=== PATIENT | male | born 1975 ===

== ENCOUNTER 2019-12-27 08:10 | Outpatient (REF) | payer OTHER, SELFPAY | END 2019-12-27 08:11 | disposition home or self-care (01) | LOC: HO.LAB 08:10 | PROVIDERS: Visit Provider Internal Medicine | DX: Z20.828 Contact with and (suspected) exposure to other viral communicable diseases (principal) | CPT/HCPCS: C9803; U0003 ==

== ENCOUNTER → 2020-01-16 09:18 | Outpatient (BNVA) | payer OTHER, SELFPAY | PROVIDERS: PCP Internal Medicine; Referring Provider Internal Medicine; Visit Provider Nurse Practitioner | DX: Z76.89 Persons encountering health services in other specified circumstances (principal) ==

== ENCOUNTER 2020-02-12 06:27 | Outpatient (REF) | payer OTHER, SELFPAY | END 2020-02-12 06:28 | disposition home or self-care (01) | LOC: HO.LAB 06:27 | PROVIDERS: PCP Internal Medicine; Visit Provider Internal Medicine | DX: Z20.828 Contact with and (suspected) exposure to other viral communicable diseases (principal) | CPT/HCPCS: 36415; C9803; U0003 ==

== ENCOUNTER 2020-02-25 15:01 | Outpatient (REF) | payer OTHER, SELFPAY | END 2020-02-25 15:02 | disposition home or self-care (01) | LOC: HO.LAB 15:01 | PROVIDERS: PCP Internal Medicine; Visit Provider Internal Medicine | DX: Z20.822 Contact with and (suspected) exposure to COVID-19 (principal) | CPT/HCPCS: 36415; C9803; U0003 ==

== ENCOUNTER 2020-03-12 17:00 | Outpatient (REF) | payer OTHER, SELFPAY | END 2020-03-12 17:01 | disposition home or self-care (01) | LOC: HO.LAB 17:00 | PROVIDERS: Visit Provider Internal Medicine | DX: Z20.822 Contact with and (suspected) exposure to COVID-19 (principal) | CPT/HCPCS: 36415; C9803; U0003; U0005 ==

== ENCOUNTER 2020-03-19 09:35 | Outpatient (REF) | payer OTHER, SELFPAY ==
[2020-03-19 10:48] LABS: Glucose Urine UA NEG (NEG); Leukocyte Esterase Urine NEG (NEG); Nitrite Urine NEG (NEG); Urine Blood NEG (NEG); Urine Ketones NEG (NEG); Urine Protein NEG (NEG-TRACE)
[2020-03-19 10:58] LABS: Appearance Urine HAZY; Color Urine YELLOW
== END 2020-03-19 09:36 | disposition home or self-care (01) ==
LOC: HO.LAB 09:35
PROVIDERS: Visit Provider Internal Medicine
DX: R30.0 Dysuria (principal)
CPT/HCPCS: 81003; 87086

== ENCOUNTER 2020-04-10 09:42 | Outpatient (REF) | payer OTHER, SELFPAY | END 2020-04-10 09:43 | disposition home or self-care (01) | LOC: HO.LAB 09:42 | PROVIDERS: Visit Provider Internal Medicine | DX: Z20.822 Contact with and (suspected) exposure to COVID-19 (principal) | CPT/HCPCS: 36415; C9803; U0003; U0005 ==

== ENCOUNTER → 2020-04-14 09:18 | Outpatient (BNVA) | payer OTHER, SELFPAY | PROVIDERS: PCP Internal Medicine; Visit Provider Nurse Practitioner ==

== ENCOUNTER 2020-08-25 09:02 | Outpatient (REF) | payer OTHER, SELFPAY ==
--- NOTE | ~2020-08-25 | CT_ITS ---
EXAMINATION: CT ABDOMEN AND PELVIS WITH CONTRAST CLINICAL INFORMATION: Left lower quadrant pain COMPARISON: Previous CT of the abdomen and pelvis November 2018 TECHNIQUE: Multidetector volumetric images were obtained from the superior aspect of the liver through the pubic symphysis following administration 85 mL of Omnipaque 350 intravenous contrast. Sagittal and coronal reformatted images were obtained on the technologist's workstation. Oral contrast: Yes This CT examination was performed using dose optimization techniques as appropriate, variously including the following: *Automated exposure control *Adjustment of mA and/or kV according to patient size (this includes techniques or standardized protocols for targeted exams where dose is matched to indication/reason for exam; i.e. extremities or head) *Use of iterative reconstruction technique DLP: 390 mGy-cm FINDINGS: LUNG BASES: The visualized lung bases are unremarkable. LIVER, GALLBLADDER, AND BILIARY TREE: There is mild fatty infiltration of the liver. The liver is otherwise unremarkable. The gallbladder is unremarkable with no evidence of radiopaque gallstones, gallbladder wall thickening, or obvious pericholecystic inflammatory changes. PANCREAS: Unremarkable. SPLEEN: Unremarkable. ADRENAL GLANDS: Unremarkable. KIDNEYS AND URETERS: The kidneys are normal in size, shape, and attenuation. No hydronephrosis, hydroureter, or calculi seen. No perinephric stranding. BLADDER: Unremarkable. GASTROINTESTINAL TRACT: There is mild diverticulosis of the colon. There is mild wall thickening of the distal left and sigmoid colon questionable for mild diverticulitis or colitis. Long segment distribution raises question of colitis. The appendix is unremarkable. The stomach is unremarkable. ABDOMINAL WALL: No significant hernia is appreciated. LYMPH NODES: Normal. VASCULAR: Unremarkable. PELVIC VISCERA: The prostate gland is slightly enlarged and measures 3.5 x 5.3 cm in AP and transverse dimension. OSSEOUS STRUCTURES: There is degenerative disc disease at L5-S1. CT/CT abdomen pelvis w con IMPRESSION: Mild diverticulosis of the colon. Question mild colitis versus diverticulitis of the left colon and sigmoid colon. Fatty infiltration of the liver. Slightly enlarged prostate gland. Findings will be communicated by the [place] work flow driver guide Tania Andrade.
[2020-08-25] MEDS: iohexoL 350 MG/ML 100 ML INFUS..BTL IV (12:17)
[2020-08-25] MEDS: Barium Sulfate Oral (Vanilla) 450 ML ORAL.SUSP 900 ML PO (12:18)
== END 2020-08-25 09:03 | disposition home or self-care (01) ==
LOC: HO.CT 09:02
PROVIDERS: Visit Provider Emergency Medicine
DX: R10.32 Left lower quadrant pain (principal)
CPT/HCPCS: 74177; Q9967

== ENCOUNTER → 2020-10-16 09:52 | Outpatient (BNVA) | payer OTHER, SELFPAY | PROVIDERS: Visit Provider Nurse Practitioner ==

== ENCOUNTER 2020-12-04 13:29 | Outpatient (REF) | payer OTHER, SELFPAY | END 2020-12-04 13:30 | disposition home or self-care (01) | LOC: HO.LAB 13:29 | PROVIDERS: PCP Internal Medicine; Visit Provider Internal Medicine | DX: Z20.822 Contact with and (suspected) exposure to COVID-19 (principal) | CPT/HCPCS: C9803; U0003; U0005 ==

== ENCOUNTER 2020-12-16 05:59 | Outpatient (REF) | payer OTHER, SELFPAY ==
[2020-12-16 08:01] LABS: Alanine Aminotransferase 34 U/L (0-40); Albumin Level 4.2 g/dL (3.5-5.0); Alkaline Phosphatase 90 U/L (39-117); Anion Gap 8 (12-20); Aspartate Amino Transferase 25 U/L (5-37); Bilirubin Total 0.5 mg/dL (0.0-1.0); Blood Urea Nitrogen 14 mg/dL (9-16); Calcium 9.3 mg/dL (8.4-10.2); Carbon Dioxide 30 mmol/L (22-29); Chloride 106 mmol/L (96-108); Cholesterol 191 mg/dL; Estimated Glomerular Filt Rate > 60; Glucose Random 87 mg/dL (60-115); HDL Cholesterol 34 mg/dL; LDL Cholesterol Calculated 122 mg/dl; Potassium 4.8 mmol/L (3.3-5.1); Sodium 139 mmol/L (135-145); Total Protein 7.3 g/dL (6.5-8.0); Triglycerides 179 mg/dL
[2020-12-16 08:21] LABS: Thyroid Stimulating Hormone 0.77 uIU/mL (0.32-4.0)
[2020-12-16 08:50] LABS: Estimated Average Glucose 105 mg/dL; Hemoglobin A1c % 5.3 %
== END 2020-12-16 06:00 | disposition home or self-care (01) ==
LOC: HO.LAB 05:59
PROVIDERS: PCP Internal Medicine; Visit Provider Internal Medicine
DX: Z00.00 Encounter for general adult medical examination without abnormal findings (principal)
CPT/HCPCS: 36415; 80053; 80061; 83036; 84443

== ENCOUNTER 2021-01-28 13:03 | Outpatient (REF) | payer OTHER, SELFPAY | END 2021-01-28 13:04 | disposition home or self-care (01) | LOC: HO.LAB 13:03 | PROVIDERS: Visit Provider Internal Medicine | DX: Z20.822 Contact with and (suspected) exposure to COVID-19 (principal) | CPT/HCPCS: C9803; U0003; U0005 ==

== ENCOUNTER 2021-02-16 09:07 | Outpatient (REF) | payer OTHER, SELFPAY ==
[2021-02-16 11:52] LABS: Binax Internal Control QC Valid; Binax Now Covid-19 Ag Negative (Negative)
== END 2021-02-16 09:08 | disposition home or self-care (01) ==
LOC: HO.LAB 09:07
PROVIDERS: Visit Provider Internal Medicine
DX: Z20.822 Contact with and (suspected) exposure to COVID-19 (principal)
CPT/HCPCS: 36415; C9803

== ENCOUNTER 2021-02-16 09:34 | Outpatient (REF) | payer OTHER, SELFPAY | END 2021-02-16 09:35 | disposition home or self-care (01) | LOC: HO.LAB 09:34 | PROVIDERS: Visit Provider Internal Medicine | DX: Z13.89 Encounter for screening for other disorder (principal) ==

== ENCOUNTER → 2021-05-15 08:54 | Outpatient (BNVA) | payer OTHER, SELFPAY | PROVIDERS: PCP Internal Medicine; Referring Provider Internal Medicine; Visit Provider Nurse Practitioner | DX: K21.9 Gastro-esophageal reflux disease without esophagitis (principal); R10.32 Left lower quadrant pain; R11.0 Nausea; K58.9 Irritable bowel syndrome, unspecified; K57.92 Diverticulitis of intestine, part unspecified, without perforation or abscess without bleeding; A04.5 Campylobacter enteritis | CPT/HCPCS: 99212 ==

== ENCOUNTER 2021-08-18 10:35 | Outpatient (REF) | payer OTHER, SELFPAY ==
[2021-08-18 11:13] LABS: COVID-19 Test Negative (Negative); IDNOW Serial# 16C4AD1C
== END 2021-08-18 10:36 | disposition home or self-care (01) ==
LOC: HO.LAB 10:35
PROVIDERS: Visit Provider Internal Medicine
DX: Z20.822 Contact with and (suspected) exposure to COVID-19 (principal)
CPT/HCPCS: 87635; C9803

== ENCOUNTER 2021-09-07 11:31 | Outpatient (REF) | payer OTHER, SELFPAY ==
[2021-09-07 12:04] LABS: COVID-19 Test Negative (Negative)
== END 2021-09-07 11:32 | disposition home or self-care (01) ==
LOC: HO.LAB 11:31
PROVIDERS: Visit Provider Internal Medicine
DX: Z20.822 Contact with and (suspected) exposure to COVID-19 (principal)
CPT/HCPCS: 87635; C9803

== ENCOUNTER → 2022-02-03 09:32 | Outpatient (BNVA) | payer OTHER, SELFPAY | PROVIDERS: PCP Internal Medicine; Referring Provider Internal Medicine; Visit Provider Nurse Practitioner | DX: Z12.11 Encounter for screening for malignant neoplasm of colon (principal); R13.10 Dysphagia, unspecified | CPT/HCPCS: 99212 ==

== ENCOUNTER 2022-05-14 07:21 | Day surgery (SDC) | payer OTHER, SELFPAY ==
[2022-05-14 07:32] VITALS: BMI 29.6
[2022-05-14 07:43] VITALS: BP 125/85; PULSE 73; RESP 18; TEMP 36.3; O2SAT 100
--- NOTE | 2022-05-14 07:43 | P.HPSUR_ITS ---
Pre-Procedural Eval Section A Date of Service: 05/14/22 The patient is an INPATIENT: No The History & Physical has been completed within 30 days and I have reviewed it.: No Section B Chief Complaint: screening Relevant Family History (Specify if Yes): No Relevant Social History: None Present Medications: see Short Stay Collaborative assessment Medical History: Significant History (fatty liver, hypertension, IBS) History of Previous Operations: Relevant previous surgery/procedure and date(s) (History of esophagogastroduodenoscopy (EGD) Hx of colonoscopy) Allergies: Allergies Allergy/AdvReac Type Severity Reaction Status Date / Time No Known Allergies Allergy Verified 05/11/22 11:09 [No Known Allergies*] Review of Systems Sugical H&P ROS: Negative: Constitution, Cardiovascular, Respiratory and Ga strointestinal Exam Surgical H&P Exam: Normal: Heart, Normal: Lungs, Normal: Extremities and Normal: Abdomen Plan Diagnosis/Plan: Unchanged I have reviewed the history and physical and performed a pertinent physical examination on my patient. No changes have occurred unless specified. Time Spent With Patient Time: Total time managing care of this patient today ____ minutes.
--- NOTE | 2022-05-14 07:52 | P.CONAN_ITS ---
[facility] Active Problems Active Problems: All Active Problems (Updated 05/11/22 @ 11:27 by Martha Cordero RN) GERD (gastroesophageal reflux disease) (Acute) Nausea and vomiting (Acute) Esophageal dysphagia (Acute) Campylobacter enteritis (Acute) IBS (irritable bowel syndrome) (Acute) Diverticulitis (Acute) Colon cancer screening (Acute) Past Medical History Medical History (Updated 05/11/22 @ 11:27 by Martha Cordero RN) Fatty liver GERD (gastroesophageal reflux disease) HTN (hypertension) IBS (irritable bowel syndrome) Family History Family History Father No problems noted. Mother No problems noted. Brother No problems noted. Sister No problems noted. Family history of problems with anesthesia: No Surgical History Surgical History (Updated 05/11/22 @ 11:27 by Martha Cordero RN) History of cystoscopy History of esophagogastroduodenoscopy (EGD) History of facial surgery Hx of colonoscopy History of Problems with Anesthesia: No Social History Social History Household Members: Friend(s) Alcohol intake: current Alcohol intake frequency: does not drink Patient Tobacco Use Status: Never used Tobacco Use of substances other than those prescribed or required for medical reasons: No Are you DNR?: No Advance Directives: No Advance Directives Information Provided: Yes Current occupational status: employed 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 [employer] Allergies Allergy/AdvReac Type Severity Reaction Status Date / Time No Known Allergies Allergy Verified 05/11/22 11:09 [No Known Allergies*] Home Medications Medication Instructions Recorded Confirmed Last Taken Type cholecalciferol (vitamin D3) 25 25 mcg PO DAILY 02/03/22 05/11/22 Unknown History mcg (1,000 unit) tablet diltiazem HCl 60 mg tablet 60 mg PO BID 02/03/22 05/11/22 Unknown History lisinopril 10 mg tablet 10 mg PO DAILY 02/03/22 05/11/22 Unknown History nifedipine 30 mg tablet,extended 30 mg PO DAILY 02/03/22 05/11/22 Unknown History release Exam Exam Date and Time: May 14, 2022 0752 Height,Weight and Vital Signs: Height 5 ft 8 in Weight 88.451 kg Last Vital Signs Temp 97.3 F 05/14/22 07:43 Pulse 73 05/14/22 07:43 Resp 18 05/14/22 07:43 BP 125/85 05/14/22 07:43 Pulse Ox 100 05/14/22 07:43 O2 Del Method Room Air 05/14/22 07:43 Airway Mallampati Class: II TM Dist: >3cm Neck ROM: Full Heart: rrr Lungs: cta Assessment and Plan Assessment Anesthesia Assessment: Anesthesia Plan Discussed and Chart Reviewed Final Anesthetic Review Family History of Problems with Anesthesia: No History of Problems with Anesthesia: No NPO: Yes ASA Class: II Final Preanesthetic Review: No Changes in Pt Med Stat, Meds/Allgs Chart Reviewed, Consent Obtained/Reviewed and Anes Risks/Benef Reviewed Patient Risk: Low Procedure Risk: Low Anesthetic Plan Anesthetic Plan: MAC: Disposition: Standard PACU
[2022-05-14] MEDS: Lactated Ringers 1,000 ML 50 ML IVCONT (08:01)
--- NOTE | 2022-05-14 08:55 | W.PM.OPN ---
Operative Note Operative Note Date of Service: 05/14/22 Narrative: FLEXIBLE TRANSORAL UPPER GASTROINTESTINAL ENDOSCOPY WITH BIOPSIES AND COLONOSCOPY TILL CECUM Pre-op diagnosis: Colon cancer screening, follow-up of colon polyps, Barretts surveillance Post-op diagnosis: GERD, hiatal hernia, gastritis, diverticulosis, hemorrhoids Endoscopist:José Miguel Parra MD Anesthesia:?MAC UPPER ENDOSCOPY Consent: Indications for the procedure and potential complications of bleeding, perforation, reaction to medications and missed diagnosis were discussed with the patient and informed consent was obtained. Instrument: Olympus GIF H 190 mid size upper endoscope Monitoring: Vital signs and clinical assessment, continuous EKG monitoring, Pulse oximetry, Carbon Dioxide monitoring and blood pressure monitoring were done throughout the procedure. Procedure: The patient was placed in the left lateral decubitis position and pre-procedure medications were administered and a bite block was placed. The endoscope was inserted into the mouth and advanced under direct vision to the third part of duodenum. A careful inspection was made as the upper endoscope was withdrawn including a retroflexed examination of the proximal stomach; Findings and interventions are described below. Findings: Larynx: Normal Esophagus: GE junction at 32 cms, hiatal hernia 32 to 35 cms. A 1 cms tongue of Cano's - biopsied. No esophagitis. Stomach: Mild gastric erythema. Biopsies were obtained. Grade 2 flap valve on retroflexed examination of the cardia. Duodenum: Normal bulb and descending duodenum Intervention: Biopsies as noted above COLONOSCOPY PROCEDURE NOTE Consent: Indications for the procedure and potential complications of bleeding, perforation, reaction to medications and missed diagnosis were discussed with the patient and informed consent was obtained. Instrument: Olympus PCF H 190 L variable stiffness pediatric colonoscope Monitoring: Vital signs and clinical assessment, intermittent blood pressure monitoring, continuous EKG monitoring, Pulse oximetry and Carbon Dioxide monitoring were done throughout the procedure. Colon withdrawl time was 11 minutes. Procedure: The patient was placed in the left lateral decubitis position and pre-procedure medications were administered. After a digital rectal examination of the ano-rectum, the video colonoscope was inserted into the rectum and advanced through the colon to the cecum. The colonoscope was slowly withdrawn in a retrograde panoramic fashion and the colon mucosa was carefully examined including a retroflexed view of the rectum. Findings and interventions are described below. Procedure Difficulty: : Without difficulty Findings: Terminal Ileum: Not evaluated Cecum: Normal Ascending Colon: Normal Transverse Colon: Moderate diverticulosis Descending Colon: Moderate diverticulosis Sigmoid Colon: Moderate diverticulosis Rectum: Normal Ano-rectum: Small internal hemorrhoids Colon preparation: Good after some irrigation Impression and Post Procedure Diagnosis: Endoscopy Findings: ESOPHAGUS: GE junction at 32 cms, hiatal hernia 32 to 35 cms. A 1 cms tongue of Cano's - biopsied. No esophagitis. STOMACH: Gastritis Colonoscopy Findings: No polyps were detected Moderate diverticulosis seen in the left and transverse colon Small hemorrhoids on retroflexed exam. Plan: Await pathology results Patient has an appointment on 05/18/22 in the GI Clinic with Lor Rao NP. Repeat Colonoscopy interval based on path results - in 5 years due to a history of adenomatous colon polyps. Above findings were reviewed with the patient and GERD and diverticulosis handouts were given in the discharge area
[2022-05-14 09:40] VITALS: BP 94/55; PULSE 77; RESP 16; TEMP 36.3; O2SAT 93
[2022-05-14 09:55] VITALS: BP 114/77; PULSE 66; RESP 18; TEMP 36.1; O2SAT 99
[2022-05-14 10:10] VITALS: BP 107/77; PULSE 67; RESP 18; O2SAT 97
== END 2022-05-14 11:05 | disposition home or self-care (01) ==
PROVIDERS: PCP Internal Medicine; Visit Provider Internal Medicine Gastroenterology
PROC: 0DJD8ZZ Inspection of Lower Intestinal Tract, Via Natural or Artificial Opening Endoscopic (ICD-10-PCS; CPT 45378; principal; 2022-05-14 08:30)
DX: Z12.11 Encounter for screening for malignant neoplasm of colon (principal); Z86.010 Personal history of colon polyps; K57.30 Diverticulosis of large intestine without perforation or abscess without bleeding; K64.8 Other hemorrhoids; K58.9 Irritable bowel syndrome, unspecified; K76.0 Fatty (change of) liver, not elsewhere classified; K22.70 Barrett's esophagus without dysplasia; K21.9 Gastro-esophageal reflux disease without esophagitis; K29.50 Unspecified chronic gastritis without bleeding; K31.A11 Gastric intestinal metaplasia without dysplasia, involving the antrum; K44.9 Diaphragmatic hernia without obstruction or gangrene; I10 Essential (primary) hypertension; Z79.899 Other long term (current) drug therapy
CPT/HCPCS: 45378; 43239; 88305; 88342

== ENCOUNTER 2022-08-27 10:18 | Outpatient (AMB) | payer OTHER, SELFPAY ==
--- NOTE | 2022-08-27 10:26 | A.OFFVIS_ITS ---
Intake Vital Signs 08/27/22 10:39 Height 5 ft 7 in Weight 190 lb 7.67 oz BMI 29.8 BP 137/86 Blood Pressure Location Rt brachial Position Sitting Pulse 75 Intake Visit Reasons: follow up colo Intake Note: Patient presents to in office visit today in follow up of colonoscopy. CC: Patient c/o LUQ abdominal pain and states when he gets the pain he feels like a ball forms in his stomach . He also report nausea. [employer] Required: No Accompanied by: Self / Same As Patient Allergies No Known Allergies [No Known Allergies*] Allergy (Verified 08/27/22 10:44) HPI follow up colo HPI Details Assessment & Plan (1) GERD (gastroesophageal reflux disease): ?Code(s): K21.9 - Gastro-esophageal reflux disease without esophagitis ?Plan: He has nausea, but has run out of his meds.? Apparently he missed an appointment that he did not know he had and is a little confused because he says he saw me in the office and then he had a telephone visit.? However, we are not doing telephone visits anymore so I think this may have been the source of his confusion. When he is on his medications he does quite well so we will restart them and I w ill write out all the medicines he is supposed to be taking so that he understands how to best take care of himself. His colonoscopy scheduled for May because he needed to go away on a vacation at some point so I will see him after the colonoscopy unless he is feeling like returning to his medications is unhelpful in which case he can come back sooner.? He is quite agreeable to this. ROV after colonoscopy (2) Nausea and vomiting: ?Comment: ?The reason for his continued nausea remains elusive. EGD in 2011 mild gastritis, and after his reaction to the colonoscopy (although likely viral herpes) I am not in a benoit to do another EGD. Gastric emptying study was normal, but he may have intermittent delays due to parasympathetic dysfunction. ?Code(s): R11.2 - Nausea with vomiting, unspecified (3) Esophageal dysphagia: ?Code(s): R13.10 - Dysphagia, unspecified (4) Colon cancer screening: ?Code(s): Z12.11 - Encounter for screening for malignant neoplasm of colon ? ? ? Medications: Changed From metoclopramide HCl (Reglan) 5 mg? PO .T.I.D. A .C. PRN 60 tabs 6R F nausea and vomit ing R11.2 - Nausea wit h vomiting, unspec ified ? To metoclopramide HCl (Reglan) 5 mg? PO .T.I.D. A .C. 60 tabs 6RF na usea and vomiting D R11.2 - Nausea wit h vomiting, unspec ified ? Refilled pantoprazole 40 mg? PO BEDTIME 30 tabs 6RF K21.9 - Gastro-eso phageal reflux dis ease without esoph agitis ? dicyclomine 20 mg? PO QID 30 d ays 120 tabs 6RF K58.9 - Irritable bowel syndrome wit hout diarrhea ? COLONOSCOPY 05/14/22 Findings: Terminal Ileum: Not evaluated Cecum:? Normal Ascending Colon:??Normal Transverse Colon:??Moderate diverticulosis Descending Colon:? Moderate diverticulosis Sigmoid Colon:??Moderate diverticulosis Rectum:??Normal Ano-rectum:??Small internal hemorrhoids Colon preparation:? Good after some irrigation Impression and Post Procedure Diagnosis: Endoscopy Findings: ESOPHAGUS: GE junction at 32 cms, hiatal hernia 32 to 35 cms. A 1 cms tongue of Cano's - biopsied.? No esophagitis. STOMACH: Gastritis Colonoscopy Findings: No polyps were detected Moderate diverticulosis seen in the left and transverse colon Small hemorrhoids on retroflexed exam. Plan: Await pathology results Patient has an appointment on 05/18/22 in the GI Clinic with Lor Rao NP. Repeat Colonoscopy interval based on path results - in? 5 years due to a history of adenomatous colon polyps. eceived: 05/14/22 Diagnosis A.? Gastric antrum, biopsy:? Gastric antrum with mild reactive changes, congestion, focal intestinal metaplasia, and minimal chronic inactive gastritis; negative for H pylori and dysplasia. B.? Esophagogastric junction, biopsy:? Squamocolumnar mucosa with mild chronic inflammation; negative for intestinal metaplasia and dysplasia. TODAY'S VISIT The procedure needs to be repeated in 5 years. The procedure was well tolerated. The results were explained and the patient is agreeable to the follow-up interval as stated. The bowel pattern has returned to normal. Education was provided to tell any 1st degree relatives about their findings to be sure that they are screened by age 45. Educated that they will be put on a recall list when it is time for their repeat scope but should they move out of state or away from the hospital they will need to remember along with their primary to repeat the procedure in a timely fashion to avoid any adverse complications... He is having increasing LLQ pain recently, the bentyl helps but he can not take it during the day as it makes him sleepy. 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 When he has the pain he will pass mucus like yellow stools. Usually his stools are multiple times a day and are soft. He admits he is not good at eating much fiber in his diet, he dislikes vegetables and whole grains. I think a fiber supplement to may calm things down - will rx metamucil pills as he gets his medications via [facility] in [place]. He also c/o nausea, but has fallen off using his reglan, I advise him to restart this medication. ROV 3 weeks. [facility] Medical History Fatty liver GERD (gastroesophageal reflux disease) HTN (hypertension) IBS (irritable bowel syndrome) Surgical History History of cystoscopy History of esophagogastroduodenoscopy (EGD) History of facial surgery Hx of colonoscopy Family History Father No problems noted. Mother No problems noted. Brother No problems noted. Sister No problems noted. 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 Review of Systems Const Denies fatigue, Denies fever(s), Denies night sweats, Denies poor appetite and Denies weight loss ENT Reports Normal hearing present, Denies dental pain, Denies dysphagia, Denies hearing loss, Denies mouth pain, Denies odynophagia, Denies throat swelling, Denies tongue swelling and Reports other (Dentition adequate) Card Reports no additional complaints Resp Reports no additional complaints GI Reports abdominal pain, Denies melena, Denies bloating, Denies hematochezia, Denies constipation, Reports GI cramping, Denies dysphagia, Denies excessive flatus, Denies early satiety, Denies heartburn, Denies diarrhea, Reports nausea, Denies odynophagia, Denies vomiting and Denies hematemesis Skin/Breast Denies pruritus, Denies lesions, Denies rash and Denies jaundice Neuro Reports Normal hearing present and Denies Abnormal speech present Endo Denies fatigue Aller/Immun Denies throat swelling and Denies tongue swelling Physical Exam Vital Signs: Last Vital Signs Pulse 75 08/27/22 10:39 BP 137/86 08/27/22 10:39 BMI result Body Mass Index 29.8 Const General: cooperative, no acute distress, well developed and well groomed Nutritional Appearance: well nourished and overweight Orientation/consciousness: oriented to person, oriented to place and oriented to time Limitations: No language barrier HEENT Head: Yes normocephalic and Yes atraumatic Eyes General: appearance normal, both eyes and all related structures Pupils: Equal, round and reactive pupils present Neck Neck: Yes normal visual inspection and Yes no lymphadenopathy Thyroid: Thyroid normal Resp Effort & Inspection: normal respiratory effort and able to speak in complete sentences Auscultation: clear to auscultation bilaterally Cardio Rate: regular rate Rhythm: regular rhythm Heart sounds: Normal, physiologic split S2 sound present Peripheral pulses: radial pulses present and posterior tibial pulses present GI Inspection: No distended and No Abdominal panniculus present Palpation (GI): Soft to palpation, nontender, no guarding, not rigid and No hepatosplenomegaly present Percussion: Yes normal to percussion Auscultation: normal bowel sounds Rectal Exam - Male: Yes deferred Skin General skin exam: no rashes or lesions noted, turgor normal, skin not dry, no jaundice, No spider nevi and no striae Rashes: no rashes Nails: normal Neuro General: oriented to person, oriented to place and oriented to time Cranial nerves: Yes Equal, round and reactive pupils present and Yes Normal hearing present Speech: No Abnormal speech present Extrem General: Yes normal to inspection, No clubbing, No cyanosis and No edema Psych Appearance: grossly normal and well kempt Mental Status: mental status grossly normal Speech and movement: Normal speech and movement present Affect: normal affect Attitude: cooperative Thought process: Normal thought process present and not confabulating Thought content: Normal thought content present Insight: Fair insight present (Psych) Judgement: Fair judgement present (Psych) Assessment & Plan Assessment & Plan (1) Cano's esophagus determined by endoscopy: Comment: diagnosed on EGD in 2019 Code(s): K22.70 - Cano's esophagus without dysplasia Plan: The procedure needs to be repeated in 5 years. The procedure was well tolerated. The results were explained and the patient is agreeable to the follow-up interval as stated. The bowel pattern has returned to normal. Education was provided to tell any 1st degree relatives about their findings to be sure that they are screened by age 45. Educated that they will be put on a recall list when it is time for their repeat scope but should they move out of state or away from the hospital they will need to remember along with their primary to repeat the procedure in a timely fashion to avoid any adverse complications... He is having increasing LLQ pain recently, the bentyl helps but he can not take it during the day as it makes him sleepy. 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 When he has the pain he will pass mucus like yellow stools. Usually his stools are multiple times a day and are soft. He admits he is not good at eating much fiber in his diet, he dislikes vegetables and whole grains. I think a fiber supplement to may calm things down - will rx metamucil pills as he gets his medications via [facility] in [place]. He also c/o nausea, but has fallen off using his reglan, I advise him to restart this medication. ROV 3 weeks. (2) GERD (gastroesophageal reflux disease): Code(s): K21.9 - Gastro-esophageal reflux disease without esophagitis (3) Nausea and vomiting: Comment: The reason for his continued nausea remains elusive. EGD in 2011 mild gastritis, and after his reaction to the colonoscopy (although likely viral herpes) I am not in a benoit to do another EGD. Gastric emptying study was normal, but he may have intermittent delays due to parasympathetic dysfunction. Code(s): R11.2 - Nausea with vomiting, unspecified (4) Esophageal dysphagia: Code(s): R13.10 - Dysphagia, unspecified (5) IBS (irritable bowel syndrome): Code(s): K58.9 - Irritable bowel syndrome without diarrhea (6) Tubular adenoma of colon: Comment: 2022=neg scope repeat in 5 years, 2018=TA Code(s): D12.6 - Benign neoplasm of colon, unspecified Medications: New psyllium husk (Daily Fiber) 0.8 grams (2 x 0.4 gram) PO QAM 60 caps 6RF K58.9 - Irritable bowel syndrome without diarrhea Refilled metoclopramide HCl (Reglan) 5 mg PO .T.I.D. A.C. 60 tabs 6RF nausea and vomiting R11.2 - Nausea with vomiting, unspecified Coding Level of Care Code Est Pt Level 3 (24889) Diagnoses Cano's esophagus determined by endoscopy K22.70 GERD (gastroesophageal reflux disease) K21.9 Nausea and vomiting R11.2 Esophageal dysphagia R13.10 IBS (irritable bowel syndrome) K58.9 Tubular adenoma of colon D12.6
[2022-08-27 10:39] VITALS: BP 137/86; PULSE 75; BMI 29.8
== END 2022-08-27 11:31 | disposition home or self-care (01) ==
PROVIDERS: PCP Internal Medicine; Visit Provider Nurse Practitioner
DX: K22.70 Barrett's esophagus without dysplasia (principal); K21.9 Gastro-esophageal reflux disease without esophagitis; R11.2 Nausea with vomiting, unspecified; R13.10 Dysphagia, unspecified; K58.9 Irritable bowel syndrome, unspecified; D12.6 Benign neoplasm of colon, unspecified
CPT/HCPCS: 99213

== ENCOUNTER → 2022-08-27 10:18 | Outpatient (BNVA) | payer OTHER, SELFPAY | PROVIDERS: PCP Internal Medicine; Visit Provider Nurse Practitioner | DX: R13.10 Dysphagia, unspecified (principal); R11.2 Nausea with vomiting, unspecified; K21.9 Gastro-esophageal reflux disease without esophagitis; K22.70 Barrett's esophagus without dysplasia; K58.9 Irritable bowel syndrome, unspecified | CPT/HCPCS: 99212 ==

== ENCOUNTER 2022-09-17 11:43 | Outpatient (REF) | payer OTHER, SELFPAY ==
[2022-09-17 15:01] LABS: C Reactive Protein 0.18 mg/dL (< or = 0.50)
== END 2022-09-17 11:44 | disposition home or self-care (01) ==
LOC: HO.LAB 11:43
PROVIDERS: PCP Internal Medicine; Visit Provider Nurse Practitioner
DX: R19.7 Diarrhea, unspecified (principal); R11.2 Nausea with vomiting, unspecified; K21.9 Gastro-esophageal reflux disease without esophagitis; K22.70 Barrett's esophagus without dysplasia; R13.10 Dysphagia, unspecified
CPT/HCPCS: 86140; 99212

== ENCOUNTER 2022-09-17 11:43 | Outpatient (AMB) | payer OTHER, SELFPAY ==
--- NOTE | 2022-09-17 11:48 | A.OFFVIS_ITS ---
Intake Vital Signs 09/17/22 11:50 Height 5 ft 7 in Weight 186 lb 8.177 oz BMI 29.2 BP 122/67 Blood Pressure Location Rt brachial Position Sitting Pulse 92 Intake Visit Reasons: follow up abdominal pain Intake Note: Patient presents to in office visit today in follow up of abdominal pain. CC: Patient reports he was on vacation at and reports he had black stools for 3 days. Patient also reports nausea, feeling tired, and poor appetite. Patient was negative to COVID 19 test. 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 The procedure was well t olerated.? The results were explained and the patient is agreeable to the follow-up interval as stated.? The bowel pattern has returned to normal.? Education was provided to tell any 1st degree relatives about their findings to be sure that they are screened by age 45.? Educated that they will be put on a recall list when it is time for their repeat scope but should they move out of state or away from the hospital they will need to remember along with their primary to repeat the procedure in a timely fashion to avoid any adverse complications... He is having increasing LLQ pain recently, the bentyl helps but he can not take it during the day as it makes him sleepy. 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 When he has the pain he will pass mucus like yellow stools. Usually his stools are multiple times a day and are soft. He admits he is not good at eating much fiber in his diet, he dislikes vegetables and whole grains. I think a fiber supplement to may calm things down - will rx metamucil pills as he gets his medications via [facility] in [place]. He also c/o nausea, but has fallen off using his reglan, I advise him to restart this medication. ROV 3 weeks. (2) GERD (gastroesophageal reflux disease): ?Code(s): K21.9 - Gastro-esophageal reflux disease without esophagitis (3) Nausea and vomiting: ?Comment: ?The reason for his continued nausea remains elusive. EGD in 2012 mild gastritis, and after his reaction to the colonoscopy (although likely viral herpes) I am not in a benoit to do another EGD. Gastric emptying study was normal, but he may have intermittent delays due to parasympathetic dysfunction. ?Code(s): R11.2 - Nausea with vomiting, unspecified (4) Esophageal dysphagia: ?Code(s): R13.10 - Dysphagia, unspecified (5) IBS (irritable bowel syndrome): ?Code(s): K58.9 - Irritable bowel syndrome without diarrhea (6) Tubular adenoma of colon: ?Comment: 2022=neg scope repeat in 5 years, 2018=TA ?Code(s): D12.6 - Benign neoplasm of colon, unspecified ? ? ? Medications: New psyllium husk (Lexy ly Fiber) 0.8 grams (2 x 0.4 gram) PO QAM 60 c aps 6RF K58.9 - Irritable bowel syndrome wit hout diarrhea ? Refilled metoclopramide HCl (Reglan) 5 mg? PO .T.I.D. A .C. 60 tabs 6RF na usea and vomiting D R11.2 - Nausea wit h vomiting, unspec ified TODAY'S VISIT He went to the [facility] to an all inclusive resort adn became very ill. He had fevers with rigors, left sided abd pain, diarrhea, N/V. He only drank bottled water during his visit, after becoming ill stayed in his room and only ate bread. Now he still has intermittent loose stools, left sided pain improved but not resolved, no appetite and troy taste of food is different. He was tested for COVID but was negative. No one else traveling with him was ill. He still is very fatigued but is advancing his diet somewhat. He had 3 very black stools when it was water, but this only happened 3 times. His bowels are now a normal color. He has persistent mild evening fevers. ROV 2 weeks. [facility] Medical History Fatty liver GERD (gastroesophageal reflux disease) HTN (hypertension) IBS (irritable bowel syndrome) Surgical History History of cystoscopy History of esophagogastroduodenoscopy (EGD) History of facial surgery Hx of colonoscopy Family History Father No problems noted. Mother No problems noted. Brother No problems noted. Sister No problems noted. 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 Const Reports body aches, Reports chills, Reports fatigue, Reports fever(s), Reports malaise, Denies night sweats, Reports poor appetite and Denies weight loss ENT Reports Normal hearing present, Denies dental pain, Denies dysphagia, Denies hearing loss, Denies mouth pain, Denies odynophagia, Denies throat swelling, Denies tongue swelling and Reports other (Dentition adequate) Card Reports no additional complaints Resp Reports no additional complaints GI Reports abdominal pain, Reports melena, Denies bloating, Denies hematochezia, Denies constipation, Denies GI cramping, Denies dysphagia, Denies excessive flatus, Denies early satiety, Denies heartburn, Reports diarrhea, Reports nausea, Denies odynophagia, Reports vomiting and Denies hematemesis Musc Reports myalgias Skin/Breast Denies pruritus, Denies lesions, Denies rash and Denies jaundice Neuro Reports Normal hearing present and Denies Abnormal speech present Endo Reports fatigue Aller/Immun Denies throat swelling and Denies tongue swelling Physical Exam Vital Signs: Last Vital Signs Pulse 92 09/17/22 11:50 BP 122/67 09/17/22 11:50 BMI result Body Mass Index 29.2 Const General: cooperative, no acute distress, well developed and well groomed Nutritional Appearance: well nourished and overweight Orientation/consciousness: oriented to person, oriented to place and oriented to time Limitations: No language barrier HEENT Head: Yes normocephalic and Yes atraumatic Eyes General: appearance normal, both eyes and all related structures Pupils: Equal, round and reactive pupils present Neck Neck: Yes normal visual inspection and Yes no lymphadenopathy Thyroid: Thyroid normal Resp Effort & Inspection: normal respiratory effort and able to speak in complete sentences Auscultation: clear to auscultation bilaterally Cardio Rate: regular rate Rhythm: regular rhythm Heart sounds: Normal, physiologic split S2 sound present Peripheral pulses: radial pulses present and posterior tibial pulses present GI Inspection: No distended and No Abdominal panniculus present Palpation (GI): Soft to palpation, Tenderness to palpation present (GI) in the LLQ and in the LUQ, no guarding, not rigid and No hepatosplenomegaly present Percussion: Yes normal to percussion Auscultation: normal bowel sounds Rectal Exam - Male: Yes deferred Skin General skin exam: no rashes or lesions noted, turgor normal, skin not dry, no jaundice, No spider nevi and no striae Rashes: no rashes Nails: normal Neuro General: oriented to person, oriented to place and oriented to time Cranial nerves: Yes Equal, round and reactive pupils present and Yes Normal hearing present Speech: No Abnormal speech present Extrem General: Yes normal to inspection, No clubbing, No cyanosis and No edema Psych Appearance: grossly normal and well kempt Mental Status: mental status grossly normal Speech and movement: Normal speech and movement present Affect: normal affect Attitude: cooperative Thought process: Normal thought process present and not confabulating Thought content: Normal thought content present Insight: Fair insight present (Psych) Judgement: Fair judgement present (Psych) Assessment & Plan Assessment & Plan (1) Acute diarrhea: Code(s): R19.7 - Diarrhea, unspecified Plan: He went to the [facility] to an all inclusive resort adn became very ill. He had fevers with rigors, left sided abd pain, diarrhea, N/V. He only drank bottled water during his visit, after becoming ill stayed in his room and only ate bread. Now he still has intermittent loose stools, left sided pain improved but not resolved, no appetite and troy taste of food is different. He was tested for COVID but was negative. No one else traveling with him was ill. He still is very fatigued but is advancing his diet somewhat. He had 3 very black stools when it was water, but this only happened 3 times. His bowels are now a normal color. He has persistent mild evening fevers. He continues on his reglan tid. as well as his protonix, dicyclomine and fiber. ROV 2 weeks. (2) Nausea and vomiting: Comment: The reason for his continued nausea remains elusive. EGD in 2012 mild gastritis, and after his reaction to the colonoscopy (although likely viral herpes) I am not in a benoit to do another EGD. Gastric emptying study was normal, but he may have intermittent delays due to parasympathetic dysfunction. Code(s): R11.2 - Nausea with vomiting, unspecified (3) GERD (gastroesophageal reflux disease): Code(s): K21.9 - Gastro-esophageal reflux disease without esophagitis (4) Cano's esophagus determined by endoscopy: Comment: diagnosed on EGD in 2019 Code(s): K22.70 - Cano's esophagus without dysplasia (5) Esophageal dysphagia: Code(s): R13.10 - Dysphagia, unspecified Orders: Orders C Reactive Protein Today R19.7 - Diarrhea, unspecified GI Panel Today R19.7 - Diarrhea, unspecified CDiff Gene PCR Today R19.7 - Diarrhea, unspecified Coding Level of Care Code Est Pt Level 3 (70601) Diagnoses Acute diarrhea R19.7 Nausea and vomiting R11.2 GERD (gastroesophageal reflux disease) K21.9 Cano's esophagus determined by endoscopy K22.70 Esophageal dysphagia R13.10
[2022-09-17 11:50] VITALS: BP 122/67; PULSE 92; BMI 29.2
== END 2022-09-17 12:33 | disposition home or self-care (01) ==
PROVIDERS: PCP Internal Medicine; Visit Provider Nurse Practitioner
DX: R19.7 Diarrhea, unspecified (principal); R11.2 Nausea with vomiting, unspecified; K21.9 Gastro-esophageal reflux disease without esophagitis; K22.70 Barrett's esophagus without dysplasia; R13.10 Dysphagia, unspecified
CPT/HCPCS: 99213

== ENCOUNTER 2022-09-23 07:41 | Outpatient (REF) | payer OTHER, SELFPAY ==
[2022-09-23 10:52] LABS: CDiff Gene PCR NEGATIVE (Negative)
[2022-09-24 15:06] LABS: Campylobacter Not Detected (Not Detect.); Cryptosporidium Not Detected (Not Detect.); Cyclospora cayetanensis Not Detected (Not Detect.); E. coli EAEC Not Detected (Not Detect.); E. coli EPEC Detected (Not Detect.); E. coli ETEC Not Detected (Not Detect.); E. coli STEC Not Detected (Not Detect.); Entamoeba histolytica Not Detected (Not Detect.); Giardia lamblia Not Detected (Not Detect.); Plesiomonas shigelloides Not Detected (Not Detect.); Salmonella Not Detected (Not Detect.); Shigella sp./EIEC Not Detected (Not Detect.); Vibrio Not Detected (Not Detect.); Vibrio Cholerae Not Detected (Not Detect.); Yersinia enterocolitica Not Detected (Not Detect.)
[2022-09-24 15:07] LABS: Adenovirus F 40/41 Not Detected (Not Detect.); Astrovirus Not Detected (Not Detect.); Norovirus GI/GII Not Detected (Not Detect.); Rotavirus A Not Detected (Not Detect.); Sapovirus Not Detected (Not Detect.)
== END 2022-09-23 07:42 | disposition home or self-care (01) ==
LOC: HO.LNP 07:41
PROVIDERS: Visit Provider Nurse Practitioner
DX: R19.7 Diarrhea, unspecified (principal)
CPT/HCPCS: 87493; 87507

== ENCOUNTER 2022-10-01 11:18 | Outpatient (AMB) | payer OTHER, SELFPAY ==
--- NOTE | 2022-10-01 11:20 | MHC.OFFVIS ---
Intake Vital Signs 10/01/22 11:22 Height 5 ft 7 in Weight 188 lb 4.396 oz BMI 29.5 BP 121/7 L Blood Pressure Location Rt brachial Position Sitting Pulse 80 Intake Visit Reasons: 2 week fu Intake Note: Patient presents to in office visit today in follow up of 2 weeks follow up of abdominal pain. Patient reported at his last visit that he went on vacation at and reports he had black stools for 3 days. Patient also reports nausea, feeling tired, and poor appetite. CC: Patient reports he continues to have the left lower abdominal pain. He reports he feels like he has a lump in ther. Pt continues to have nausea and vomiting. Pt reports medication for nausea makes him feel like he is in slow motion . Senior Administrative Support Required: No Accompanied by: Self / Same As Patient Allergies No Known Allergies [No Known Allergies*] Allergy (Verified 10/01/22 11:24) HPI 2 week fu HPI Details Assessment & Plan (1) Cano's esophagus determined by endoscopy: ?Comment: diagnosed on EGD in 2019 ?Code(s): K22.70 - Cano's esophagus without dysplasia ?Plan: The procedure needs to be repeated in 5 years.? The procedure was well tolerated.? The results were explained and the patient is agreeable to the follow-up interval as stated.? The bowel pattern has returned to normal.? Education was provided to tell any 1st degree relatives about their findings to be sure that they are screened by age 45.? Educated that they will be put on a recall list when it is time for their repeat scope but should they move out of state or away from the hospital they will need to remember along with their primary to repeat the procedure in a timely fashion to avoid any adverse complications... He is having increasing LLQ pain recently, the bentyl helps but he can not take it during the day as it makes him sleepy. 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 When he has the pain he will pass mucus like yellow stools. Usually his stools are multiple times a day and are soft. He admits he is not good at eating much fiber in his diet, he dislikes vegetables and whole grains. I think a fiber supplement to may calm things down - will rx metamucil pills as he gets his medications via [facility] in [place]. He also c/o nausea, but has fallen off using his reglan, I advise him to restart this medication. ROV 3 weeks. (2) GERD (gastroesophageal reflux disease): ?Code(s): K21.9 - Gastro-esophageal reflux disease without esophagitis (3) Nausea and vomiting: ?Comment: ?The reason for his continued nausea remains elusive. EGD in 2012 mild gastritis, and after his reaction to the colonoscopy (although likely viral herpes) I am not in a benoit to do another EGD. Gastric emptying study was normal, but he may have intermittent delays due to parasympathetic dysfunction. ?Code(s): R11.2 - Nausea with vomiting, unspecified (4) Esophageal dysphagia: ?Code(s): R13.10 - Dysphagia, unspecified (5) IBS (irritable bowel syndrome): ?Code(s): K58.9 - Irritable bowel syndrome without diarrhea (6) Tubular adenoma of colon: ?Comment: 2022=neg scope repeat in 5 years, 2018=TA ?Code(s): D12.6 - Benign neoplasm of colon, unspecified ? ? ? Medications: New psyllium husk (Lexy ly Fiber) 0.8 grams (2 x 0.4 gram) PO QAM 60 c aps 6RF K58.9 - Irritable bowel syndrome wit hout diarrhea ? Refilled metoclopramide HCl (Reglan) 5 mg? PO .T.I.D. A .C. 60 tabs 6RF na usea and vomiting D R11.2 - Nausea wit h vomiting, unspec ified TODAY'S VISIT I EDUCATE HIM THAT HE SEEMS TO HAVE E coli enteritis. He thinks this up while traveling and I advised him that there is really no antibiotic therapy except for supportive measures. He already feels that he is improving so I do not think we need to invoke any new treatments. This also could be contributing to his nausea. I will see him again in 5 weeks to evaluate how he is recovering. I will also then see if the Reglan is affective or not the controlling his nausea or whether we need to think of other diagnostic measures. Again he has had an EGD in the gastric emptying study that do not really uncover any specific reasons for his nausea. Return office visit in 5 weeks [facility] Medical History Fatty liver GERD (gastroesophageal reflux disease) HTN (hypertension) IBS (irritable bowel syndrome) Surgical History History of cystoscopy History of esophagogastroduodenoscopy (EGD) History of facial surgery Hx of colonoscopy Family History Father No problems noted. Mother No problems noted. Brother No problems noted. Sister No problems noted. 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 [employer] Denies fatigue, Denies fever(s), Denies night sweats, Reports poor appetite and Denies weight loss ENT Reports Normal hearing present, Denies dental pain, Denies dysphagia, Denies hearing loss, Denies mouth pain, Denies odynophagia, Denies throat swelling, Denies tongue swelling and Reports other (Dentition adequate) Card Reports no additional complaints Resp Reports no additional complaints GI Denies abdominal pain, Denies melena, Denies bloating, Denies hematochezia, Denies constipation, Denies GI cramping, Denies dysphagia, Denies excessive flatus, Denies early satiety, Reports heartburn, Reports diarrhea, Reports nausea, Denies odynophagia, Denies vomiting and Denies hematemesis Skin/Breast Denies pruritus, Denies lesions, Denies rash and Denies jaundice Neuro Reports Normal hearing present and Denies Abnormal speech present Endo Denies fatigue Aller/Immun Denies throat swelling and Denies tongue swelling Physical Exam Vital Signs: Last Vital Signs Pulse 80 10/01/22 11:22 BP 121/7 L 10/01/22 11:22 BMI result Body Mass Index 29.5 Const General: cooperative, no acute distress, well developed and well groomed Nutritional Appearance: well nourished and overweight Orientation/consciousness: oriented to person, oriented to place and oriented to time Limitations: No language barrier HEENT Head: Yes normocephalic and Yes atraumatic Eyes General: appearance normal, both eyes and all related structures Pupils: Equal, round and reactive pupils present Neck Neck: Yes normal visual inspection and Yes no lymphadenopathy Thyroid: Thyroid normal Resp Effort & Inspection: normal respiratory effort and able to speak in complete sentences Auscultation: clear to auscultation bilaterally Cardio Rate: regular rate Rhythm: regular rhythm Heart sounds: Normal, physiologic split S2 sound present Peripheral pulses: radial pulses present and posterior tibial pulses present GI Inspection: No distended, No Abdominal panniculus present and Yes obesity Palpation (GI): Soft to palpation, nontender, no guarding, not rigid and No hepatosplenomegaly present Percussion: Yes normal to percussion Auscultation: normal bowel sounds Rectal Exam - Male: Yes deferred Skin General skin exam: no rashes or lesions noted, turgor normal, skin not dry, no jaundice, No spider nevi and no striae Rashes: no rashes Nails: normal Neuro General: oriented to person, oriented to place and oriented to time Cranial nerves: Yes Equal, round and reactive pupils present and Yes Normal hearing present Speech: No Abnormal speech present Extrem General: Yes normal to inspection, No clubbing, No cyanosis and No edema Psych Appearance: grossly normal and well kempt Mental Status: mental status grossly normal Speech and movement: Normal speech and movement present Affect: normal affect Attitude: cooperative Thought process: Normal thought process present and not confabulating Thought content: Normal thought content present Insight: Limited insight present (Psych) Judgement: Limited judgement present (Psych) Assessment & Plan Assessment & Plan (1) Cano's esophagus determined by endoscopy: Comment: diagnosed on EGD in 2019 Code(s): K22.70 - Cano's esophagus without dysplasia Plan: I EDUCATE HIM THAT HE SEEMS TO HAVE E coli enteritis. He thinks this up while traveling and I advised him that there is really no antibiotic therapy except for supportive measures. He already feels that he is improving so I do not think we need to invoke any new treatments. This also could be contributing to his nausea. I will see him again in 5 weeks to evaluate how he is recovering. I will also then see if the Reglan is affective or not the controlling his nausea or whether we need to think of other diagnostic measures. Again he has had an EGD in the gastric emptying study that do not really uncover any specific reasons for his nausea. Return office visit in 5 weeks (2) GERD (gastroesophageal reflux disease): Code(s): K21.9 - Gastro-esophageal reflux disease without esophagitis (3) Nausea and vomiting: Comment: The reason for his continued nausea remains elusive. EGD in 2012 mild gastritis, and after his reaction to the colonoscopy (although likely viral herpes) I am not in a benoit to do another EGD. Gastric emptying study was normal, but he may have intermittent delays due to parasympathetic dysfunction. Code(s): R11.2 - Nausea with vomiting, unspecified (4) IBS (irritable bowel syndrome): Code(s): K58.9 - Irritable bowel syndrome without diarrhea (5) Acute diarrhea: Code(s): R19.7 - Diarrhea, unspecified (6) E coli enteritis: Code(s): A04.4 - Other intestinal Escherichia coli infections Coding Level of Care Code Est Pt Level 3 (84024) Diagnoses Cano's esophagus determined by endoscopy K22.70 GERD (gastroesophageal reflux disease) K21.9 Nausea and vomiting R11.2 IBS (irritable bowel syndrome) K58.9 Acute diarrhea R19.7 E coli enteritis A04.4
[2022-10-01 11:22] VITALS: BP 121/7; PULSE 80; BMI 29.5
== END 2022-10-01 11:47 | disposition home or self-care (01) ==
PROVIDERS: PCP Internal Medicine; Visit Provider Nurse Practitioner
DX: K22.70 Barrett's esophagus without dysplasia (principal); K21.9 Gastro-esophageal reflux disease without esophagitis; R11.2 Nausea with vomiting, unspecified; K58.9 Irritable bowel syndrome, unspecified; R19.7 Diarrhea, unspecified; A04.4 Other intestinal Escherichia coli infections
CPT/HCPCS: 99213

== ENCOUNTER → 2022-10-01 11:18 | Outpatient (BNVA) | payer OTHER, SELFPAY | PROVIDERS: PCP Internal Medicine; Visit Provider Nurse Practitioner | DX: K22.70 Barrett's esophagus without dysplasia (principal); K21.9 Gastro-esophageal reflux disease without esophagitis; R11.2 Nausea with vomiting, unspecified; R13.10 Dysphagia, unspecified; K58.0 Irritable bowel syndrome with diarrhea; A04.4 Other intestinal Escherichia coli infections | CPT/HCPCS: 99212 ==

== ENCOUNTER 2022-11-04 16:06 | Outpatient (REF) | payer OTHER, SELFPAY ==
[2022-11-04 16:49] LABS: MANUAL DIFF FLAG NO
[2022-11-04 17:51] LABS: Basophils Absolute Auto 0.1 X10*3/uL (0.0-0.2); Basophils Percent Auto 0.8 % (0-2); Eosinophils Absolute Auto 0.1 X10*3/uL (0.0-0.4); Hematocrit 44.5 % (42.0-52.0); Hemoglobin 15.2 g/dl (14.0-18.0); Imm Gran Abs Auto 0.04 X10*3/uL (0.00-0.03); Imm Gran Pct Auto 0.5 % (0.0-0.4); Lymphocytes Absolute Auto 2.3 X10*3/uL (1.2-4.9); Lymphocytes Percent Auto 25.9 % (20-40); Mean Corpuscular HGB Conc 34.2 g/dl (31.0-36.0); Mean Corpuscular Hemoglobin 30.3 pg (27.0-33.0); Mean Corpuscular Volume 88.8 fL (80.0-98.0); Mean Platelet Volume 11.8 fL (9.4-12.4); Monocytes Absolute Auto 0.8 X10*3/uL (0.1-1.2); Monocytes Percent Auto 9.3 % (2-11); Neutrophils Absolute Auto 5.5 x10*3/uL (2.0-8.3); Neutrophils Percent Auto 62.5 % (45-73); Platelet Count 233 X10*3/uL (160-400); Red Blood Count 5.01 X10*6/uL (4.60-5.80); Red Cell Distribution Width 12.7 % (11.0-16.0); White Blood Count 8.8 X10*3/uL (4.8-10.8)
[2022-11-04 18:46] LABS: Alanine Aminotransferase 27 U/L (0-40); Albumin Level 4.4 g/dL (3.5-5.0); Alkaline Phosphatase 114 U/L (39-117); Anion Gap 14 (12-20); Aspartate Amino Transferase 26 U/L (5-37); Bilirubin Total 0.3 mg/dL (0.0-1.0); Blood Urea Nitrogen 13 mg/dL (9-16); C Reactive Protein 0.35 mg/dL (< or = 0.50); Calcium 9.8 mg/dL (8.4-10.2); Carbon Dioxide 25 mmol/L (22-29); Chloride 104 mmol/L (96-108); Estimated Glomerular Filt Rate > 60; Glucose Random 80 mg/dL (60-115); Lipase 47 U/L (8-78); Sodium 139 mmol/L (135-145); Total Protein 8.1 g/dL (6.5-8.0)
[2022-11-04 19:07] LABS: Amylase 97 U/L (28-100)
== END 2022-11-04 16:07 | disposition home or self-care (01) ==
LOC: HO.LAB 16:06
PROVIDERS: PCP Internal Medicine; Visit Provider Nurse Practitioner
DX: R11.2 Nausea with vomiting, unspecified (principal); R19.7 Diarrhea, unspecified; R10.9 Unspecified abdominal pain; A04.4 Other intestinal Escherichia coli infections; K21.9 Gastro-esophageal reflux disease without esophagitis; K22.70 Barrett's esophagus without dysplasia; A04.5 Campylobacter enteritis
CPT/HCPCS: 36415; 80053; 82150; 83690; 85025; 86140; 99212

== ENCOUNTER 2022-11-04 16:06 | Outpatient (AMB) | payer OTHER, SELFPAY ==
[2022-11-04 16:10] VITALS: BP 116/67; PULSE 83; BMI 29.9
--- NOTE | 2022-11-04 16:10 | MHC.OFFVIS ---
Intake Vital Signs 11/04/22 16:10 Height 5 ft 7 in Weight 190 lb 14.725 oz BMI 29.9 BP 116/67 Blood Pressure Location Rt brachial Position Sitting Pulse 83 Intake Visit Reasons: 5 week follow up Intake Note: Patient presents to in office visit today in follow up of 5 weeks follow up of abdominal pain. CC: Bill c/o LUQ abdominal pain 8/10 scale, cold sweats ago, nausea, and vomiting. He reports having 2 days of black loose stools. 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 He thinks this up while traveling and I advised him that there is really no antibiotic therapy except for supportive measures. He already feels that he is improving so I do not think we need to invoke any new treatments. This also could be contributing to his nausea. I will see him again in 5 weeks to evaluate how he is recovering. I will also then see if the Reglan is affective or not the controlling his nausea or whether we need to think of other diagnostic measures. Again he has had an EGD in the gastric emptying study that do not really uncover any specific reasons for his nausea. Return office visit in 5 weeks (2) GERD (gastroesophageal reflux disease): Code(s): K21.9 - Gastro-esophageal reflux disease without esophagitis (3) Nausea and vomiting: Comment: The reason for his continued nausea remains elusive. EGD in 2011 mild gastritis, and after his reaction to the colonoscopy (although likely viral herpes) I am not in a benoit to do another EGD. Gastric emptying study was normal, but he may have intermittent delays due to parasympathetic dysfunction. Code(s): R11.2 - Nausea with vomiting, unspecified (4) IBS (irritable bowel syndrome): Code(s): K58.9 - Irritable bowel syndrome without diarrhea (5) Acute diarrhea: Code(s): R19.7 - Diarrhea, unspecified (6) E coli enteritis: Code(s): A04.4 - Other intestinal Escherichia coli infections TODAY'S VISIT He says that his left sided abdominal pain that was improving at the last visit started worsening a couple of days after he saw me. The pain is right in the middle of the upper and lower quads and radiates to both. He has looser stools occurring post prandially. He has subjective night fevers. He says that the only food he tolerates is bread, anything else increases his pain. He says that meats and rice will cause him nausea and vomiting. He has fallen off of taking the reglan, and I advise him to restart this to help promote his intake. I also encourage the use of bentyl. Again, with regards to the N/V... The reason for his continued nausea remains elusive. EGD in 2012 mild gastritis, and after his reaction to the colonoscopy (although likely viral herpes) I am not in a benoit to do another EGD. Gastric emptying study was normal, but he may have intermittent delays due to parasympathetic dysfunction. We will get a repeat stool panel, fecal calpro, CRP, basic labs, amylase/lipase, CT abd and pelvis urgent. ROV 3 weeks. [facility] Medical History Fatty liver GERD (gastroesophageal reflux disease) HTN (hypertension) IBS (irritable bowel syndrome) Surgical History History of cystoscopy History of esophagogastroduodenoscopy (EGD) History of facial surgery Hx of colonoscopy Family History Father No problems noted. Mother No problems noted. Brother No problems noted. Sister No problems noted. 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 Review of Systems Const Reports chills, Denies fatigue, Reports fever(s), Denies night sweats, Reports poor appetite and Denies weight loss ENT Reports Normal hearing present, Denies dental pain, Denies dysphagia, Denies hearing loss, Denies mouth pain, Denies odynophagia, Denies throat swelling, Denies tongue swelling and Reports other (Dentition adequate) Card Reports no additional complaints Resp Reports no additional complaints GI Reports abdominal pain, Denies melena, Denies bloating, Denies hematochezia, Denies constipation, Denies GI cramping, Denies dysphagia, Denies excessive flatus, Denies early satiety, Denies heartburn, Reports diarrhea, Reports nausea, Denies odynophagia, Reports vomiting and Denies hematemesis Skin/Breast Denies pruritus, Denies lesions, Denies rash and Denies jaundice Neuro Reports Normal hearing present and Denies Abnormal speech present Endo Denies fatigue Aller/Immun Denies throat swelling and Denies tongue swelling Physical Exam Vital Signs: BMI result Body Mass Index 29.9 Const General: cooperative, no acute distress, well developed and well groomed Nutritional Appearance: well nourished and overweight Orientation/consciousness: oriented to person, oriented to place and oriented to time Limitations: No language barrier HEENT Head: Yes normocephalic and Yes atraumatic Eyes General: appearance normal, both eyes and all related structures Pupils: Equal, round and reactive pupils present Neck Neck: Yes normal visual inspection and Yes no lymphadenopathy Thyroid: Thyroid normal Resp Effort & Inspection: normal respiratory effort and able to speak in complete sentences Auscultation: clear to auscultation bilaterally Cardio Rate: regular rate Rhythm: regular rhythm Heart sounds: Normal, physiologic split S2 sound present Peripheral pulses: radial pulses present and posterior tibial pulses present GI Inspection: No distended, No Abdominal panniculus present and Yes obesity Palpation (GI): Soft to palpation, Tenderness to palpation present (GI) in the LLQ and in the LUQ, no guarding, not rigid and No hepatosplenomegaly present Percussion: Yes normal to percussion Auscultation: normal bowel sounds Rectal Exam - Male: Yes deferred Skin General skin exam: no rashes or lesions noted, turgor normal, skin not dry, no jaundice, No spider nevi and no striae Rashes: no rashes Nails: normal Neuro General: oriented to person, oriented to place and oriented to time Cranial nerves: Yes Equal, round and reactive pupils present and Yes Normal hearing present Speech: No Abnormal speech present Extrem General: Yes normal to inspection, No clubbing, No cyanosis and No edema Psych Appearance: grossly normal and well kempt Mental Status: mental status grossly normal Speech and movement: Normal speech and movement present Affect: normal affect Attitude: cooperative Thought process: Circumstantial thought process present and not confabulating Thought content: Normal thought content present Insight: Limited insight present (Psych) Judgement: Limited judgement present (Psych) Assessment & Plan Assessment & Plan (1) Left sided abdominal pain: Code(s): R10.9 - Unspecified abdominal pain Plan: He says that his left sided abdominal pain that was improving at the last visit started worsening a couple of days after he saw me. The pain is right in the middle of the upper and lower quads and radiates to both. He has looser stools occurring post prandially. He has subjective night fevers. He says that the only food he tolerates is bread, anything else increases his pain. He says that meats and rice will cause him nausea and vomiting. He has fallen off of taking the reglan, and I advise him to restart this to help promote his intake. I also encourage the use of bentyl. Again, with regards to the N/V... The reason for his continued nausea remains elusive. EGD in 2011 mild gastritis, and after his reaction to the colonoscopy (although likely viral herpes) I am not in a benoit to do another EGD. Gastric emptying study was normal, but he may have intermittent delays due to parasympathetic dysfunction. We will get a repeat stool panel, fecal calpro, CRP, basic labs, amylase/lipase, CT abd and pelvis urgent. ROV 3 weeks. (2) Acute diarrhea: Code(s): R19.7 - Diarrhea, unspecified (3) Nausea and vomiting: Comment: The reason for his continued nausea remains elusive. EGD in 2011 mild gastritis, and after his reaction to the colonoscopy (although likely viral herpes) I am not in a benoit to do another EGD. Gastric emptying study was normal, but he may have intermittent delays due to parasympathetic dysfunction. Code(s): R11.2 - Nausea with vomiting, unspecified (4) E coli enteritis: Code(s): A04.4 - Other intestinal Escherichia coli infections (5) GERD (gastroesophageal reflux disease): Code(s): K21.9 - Gastro-esophageal reflux disease without esophagitis (6) Cano's esophagus determined by endoscopy: Comment: diagnosed on EGD in 2019 Code(s): K22.70 - Cano's esophagus without dysplasia (7) Campylobacter enteritis: Code(s): A04.5 - Campylobacter enteritis Orders: Orders GI Panel Today R10.9 - Unspecified abdominal pain Complete Blood Count Auto Diff Today R11.2 - Nausea with vomiting, unspecified, R19.7 - Diarrhea, unspecified Amylase Today R11.2 - Nausea with vomiting, unspecified, R19.7 - Diarrhea, unspecified CT abdomen pelvis w IV con Today R10.9 - Unspecified abdominal pain Comprehensive Met. Panel Today R11.2 - Nausea with vomiting, unspecified, R19.7 - Diarrhea, unspecified Lipase Today R11.2 - Nausea with vomiting, unspecified, R19.7 - Diarrhea, unspecified C Reactive Protein Today R11.2 - Nausea with vomiting, unspecified, R19.7 - Diarrhea, unspecified Calprotectin, Fecal Today R11.2 - Nausea with vomiting, unspecified, R19.7 - Diarrhea, unspecified Coding Level of Care Code Est Pt Level 4 (97327) Diagnoses Left sided abdominal pain R10.9 Acute diarrhea R19.7 Nausea and vomiting R11.2 E coli enteritis A04.4 GERD (gastroesophageal reflux disease) K21.9 Cano's esophagus determined by endoscopy K22.70 Campylobacter enteritis A04.5
== END 2022-11-04 16:32 | disposition home or self-care (01) ==
PROVIDERS: PCP Internal Medicine; Visit Provider Nurse Practitioner
DX: R10.9 Unspecified abdominal pain (principal); R19.7 Diarrhea, unspecified; R11.2 Nausea with vomiting, unspecified; A04.4 Other intestinal Escherichia coli infections; K21.9 Gastro-esophageal reflux disease without esophagitis; K22.70 Barrett's esophagus without dysplasia; A04.5 Campylobacter enteritis
CPT/HCPCS: 99214

== ENCOUNTER 2022-11-06 09:20 | Outpatient (REF) | payer OTHER, SELFPAY ==
[2022-11-06 13:19] LABS: Adenovirus F 40/41 Not Detected (Not Detect.); Astrovirus Not Detected (Not Detect.); Campylobacter Not Detected (Not Detect.); Cryptosporidium Not Detected (Not Detect.); Cyclospora cayetanensis Not Detected (Not Detect.); E. coli EAEC Not Detected (Not Detect.); E. coli EPEC Not Detected (Not Detect.); E. coli ETEC Not Detected (Not Detect.); E. coli STEC Not Detected (Not Detect.); Entamoeba histolytica Not Detected (Not Detect.); Giardia lamblia Not Detected (Not Detect.); Norovirus GI/GII Not Detected (Not Detect.); Plesiomonas shigelloides Not Detected (Not Detect.); Rotavirus A Not Detected (Not Detect.); Salmonella Not Detected (Not Detect.); Sapovirus Not Detected (Not Detect.); Shigella sp./EIEC Not Detected (Not Detect.); Vibrio Not Detected (Not Detect.); Vibrio Cholerae Not Detected (Not Detect.); Yersinia enterocolitica Not Detected (Not Detect.)
[2022-11-12 21:38] LABS: Calprotectin, Fecal 174 mcg/g
== END 2022-11-06 09:21 | disposition home or self-care (01) ==
LOC: HO.LNP 09:20
PROVIDERS: Visit Provider Nurse Practitioner
DX: R10.9 Unspecified abdominal pain (principal); R19.7 Diarrhea, unspecified; R11.2 Nausea with vomiting, unspecified
CPT/HCPCS: 83993; 87507

== ENCOUNTER 2022-12-08 07:08 | Outpatient (REF) | payer OTHER, SELFPAY ==
--- NOTE | ~2022-12-08 | CT_ITS ---
EXAMINATION: CT ABDOMEN AND PELVIS WITH CONTRAST CLINICAL INFORMATION: Unspecified abdominal pain COMPARISON: CT abdomen from 08/26/2019 TECHNIQUE: Multidetector volumetric images were obtained from the superior aspect of the liver through the pubic symphysis following administration 85 mL of Omnipaque 350 intravenous contrast. Sagittal and coronal reformatted images were obtained on the technologist's workstation. Oral contrast: No This CT examination was performed using dose optimization techniques as appropriate, variously including the following: *Automated exposure control *Adjustment of mA and/or kV according to patient size (this includes techniques or standardized protocols for targeted exams where dose is matched to indication/reason for exam; i.e. extremities or head) *Use of iterative reconstruction technique DLP: 403 mGy-cm FINDINGS: LUNG BASES: The visualized lung bases are unremarkable. LIVER, GALLBLADDER, AND BILIARY TREE: The liver is normal in size, shape, and attenuation. No focal hepatic lesion or biliary ductal dilatation is present. The gallbladder is unremarkable with no evidence of radiopaque gallstones, gallbladder wall thickening, or obvious pericholecystic inflammatory changes. PANCREAS: Unremarkable. SPLEEN: Unremarkable. ADRENAL GLANDS: Unremarkable. KIDNEYS AND URETERS: The kidneys are normal in size, shape, and attenuation. No hydronephrosis, hydroureter, or calculi seen. No perinephric stranding. BLADDER: Unremarkable. GASTROINTESTINAL TRACT: Colonic diverticulosis with very slight wall thickening along the distal descending colon/sigmoid colon without pericolonic inflammatory changes may reflect a subacute versus resolving diverticulitis. Correlation with symptomatology. The small and large bowel are unremarkable. The appendix is unremarkable. ABDOMINAL WALL: No significant hernia is appreciated. LYMPH NODES: Normal. VASCULAR: Unremarkable. PELVIC VISCERA: Prostate gland measures 4.7 cm. OSSEOUS STRUCTURES: Multilevel degenerative changes of the thoracolumbar lumbosacral spine. Sclerotic focus in the posterior aspect of the right acetabular roof is clearly representing a bone island. CT/CT abdomen pelvis w IV con IMPRESSION: Colonic diverticulosis with very slight wall thickening along the distal descending colon/sigmoid colon without pericolonic inflammatory changes may reflect a subacute versus resolving diverticulitis. Correlation with symptomatology.
[2022-12-08] MEDS: Barium Sulfate Oral (Mocha) 450 ML ORAL.SUSP 900 ML PO (09:32)
[2022-12-08] MEDS: iohexoL 350 MG/ML 100 ML INFUS..BTL IV (09:33)
== END 2022-12-08 07:09 | disposition home or self-care (01) ==
LOC: HO.CT 07:08
PROVIDERS: PCP Internal Medicine; Visit Provider Nurse Practitioner
DX: R10.9 Unspecified abdominal pain (principal)
CPT/HCPCS: 74177; Q9967

== ENCOUNTER 2022-12-24 16:14 | Outpatient (AMB) | payer OTHER, SELFPAY ==
[2022-12-24 16:17] VITALS: BP 117/82; PULSE 80; BMI 30.1
--- NOTE | 2022-12-24 16:17 | A.OFFVIS_ITS ---
Intake Vital Signs 12/24/22 16:17 Height 5 ft 7 in Weight 192 lb 3.889 oz BMI 30.1 BP 117/82 Blood Pressure Location Rt brachial Position Sitting Pulse 80 Intake Visit Reasons: Follow up CT results Intake Note: Patient returns to in office visit today in follow up of labs a CT scan. CC: Patient reports he continues to have lose stools, nausea, vomiting, and abd pain. 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 The pain is right in the middle of the upper and lower quads and radiates to both. He has looser stools occurring post prandially. He has subjective night fevers. He says that the only food he tolerates is bread, anything else increases his pain. He says that meats and rice will cause him nausea and vomiting. He has fallen off of taking the reglan, and I advise him to restart this to help promote his intake. I also encourage the use of bentyl. Again, with regards to the N/V... The reason for his continued nausea remains elusive. EGD in 2011 mild gastritis, and after his reaction to the colonoscopy (although likely viral herpes) I am not in a benoit to do another EGD. Gastric emptying study was normal, but he may have intermittent delays due to parasympathetic dysfunction. We will get a repeat stool panel, fecal calpro, CRP, basic labs, amylase/lipase, CT abd and pelvis urgent. ROV 3 weeks. (2) Acute diarrhea: Code(s): R19.7 - Diarrhea, unspecified (3) Nausea and vomiting: Comment: The reason for his continued nausea remains elusive. EGD in 2011 mild gastriti s, and after his reaction to the colonoscopy (although likely viral herpes) I am not in a benoit to do another EGD. Gastric emptying study was normal, but he may have intermittent delays due to parasympathetic dysfunction. Code(s): R11.2 - Nausea with vomiting, unspecified (4) E coli enteritis: Code(s): A04.4 - Other intestinal Escherichia coli infections (5) GERD (gastroesophageal reflux diseas e): Code(s): K21.9 - Gastro-esophageal reflux disease without esophagitis (6) Cano's esophagus determined by en doscopy: Comment: diagnosed on EGD in 2019 Code(s): K22.70 - Cano's esophagus without dysplasia (7) Campylobacter enteritis: Code(s): A04.5 - Campylobacter enteritis Orders: Orders GI Panel Today R10.9 - Unspecifie d abdominal pain Complete Blood Cou nt Auto Diff Today R11.2 - Nausea wit h vomiting, unspec ified, R19.7 - Justyna rrhea, unspecified Amylase Today R11.2 - Nausea wit h vomiting, unspec ified, R19.7 - Justyna rrhea, unspecified CT abdomen pelvis w IV con Today R10.9 - Unspecifie d abdominal pain Comprehensive Met. Panel Today R11.2 - Nausea wit h vomiting, unspec ified, R19.7 - Justyna rrhea, unspecified Lipase Today R11.2 - Nausea wit h vomiting, unspec ified, R19.7 - Justyna rrhea, unspecified C Reactive Protein Today R11.2 - Nausea wit h vomiting, unspec ified, R19.7 - Justyna rrhea, unspecified Calprotectin, Feca l Today R11.2 - Nausea wit h vomiting, unspec ified, R19.7 - Justyna rrhea, unspecified LABS: CT ABDOMEN AND PELVIS Assessment & Plan (1) Left sided abdominal pain: Code(s): R10.9 - Unspecified abdominal pain Plan: He says that his left sided abdominal pain that was improving at the last visit started worsening a couple of days after he saw me. The pain is right in the middle of the upper and lower quads and radiates to both. He has looser stools occurring post prandially. He has subjective night fevers. He says that the only food he tolerates is bread, anything else increases his pain. He says that meats and rice will cause him nausea and vomiting. He has fallen off of taking the reglan, and I advise him to restart this to help promote his intake. I also encourage the use of bentyl. Again, with regards to the N/V... The reason for his continued nausea remains elusive. EGD in 2011 mild gastritis, and after his reaction to the colonoscopy (although likely viral herpes) I am not in a benoit to do another EGD. Gastric emptying study was normal, but he may have intermittent delays due to parasympathetic dysfunction. We will get a repeat stool panel, fecal calpro, CRP, basic labs, amylase/lipase, CT abd and pelvis urgent. ROV 3 weeks. (2) Acute diarrhea: Code(s): R19.7 - Diarrhea, unspecified (3) Nausea and vomiting: Comment: The reason for his continued nausea remains elusive. EGD in 2011 mild gastritis, and after his reaction to the colonoscopy (although likely viral herpes) I am not in a benoit to do another EGD. Gastric emptying study was normal, but he may have intermittent delays due to parasympathetic dysfunction. Code(s): R11.2 - Nausea with vomiting, unspecified (4) E coli enteritis: Code(s): A04.4 - Other intestinal Escherichia coli infections (5) GERD (gastroesophageal reflux diseas e): Code(s): K21.9 - Gastro-esophageal reflux disease without esophagitis (6) Cano's esophagus determined by en doscopy: Comment: diagnosed on EGD in 2019 Code(s): K22.70 - Cano's esophagus without dysplasia (7) Campylobacter enteritis: Code(s): A04.5 - Campylobacter enteritis Orders: Orders GI Panel Today R10.9 - Unspecifie d abdominal pain Complete Blood Cou nt Auto Diff Today R11.2 - Nausea wit h vomiting, unspec ified, R19.7 - Justyna rrhea, unspecified Amylase Today R11.2 - Nausea wit h vomiting, unspec ified, R19.7 - Justyna rrhea, unspecified CT abdomen pelvis w IV con Today R10.9 - Unspecifie d abdominal pain Comprehensive Met. Panel Today R11.2 - Nausea wit h vomiting, unspec ified, R19.7 - Justyna rrhea, unspecified Lipase Today R11.2 - Nausea wit h vomiting, unspec ified, R19.7 - Justyna rrhea, unspecified C Reactive Protein Today R11.2 - Nausea wit h vomiting, unspec ified, R19.7 - Justyna rrhea, unspecified Calprotectin, Feca l Today R11.2 - Nausea wit h vomiting, unspec ified, R19.7 - Justyna rrhea, unspecified LABS: Laboratory Tests 11/04/22 11/04/22 11/06/22 16:47 16:47 08:00 WBC 8.8 Hgb 15.2 Hct 44.5 Plt Count 233 Estimated GFR > 60 Total Bilirubin 0.3 AST 26 ALT 27 Alkaline Phosphata se 114 C-Reactive Protein 0.35 Amylase 97 Lipase 47 Stool Calprotectin 174 H 11/06/22-[address]: ORDERED: GI Panel Test Result Flag Refere nce Si te Campylobacter No t Detected Not Det ect. P. shigelloides Not Detected Not Detec t. S almonella Not De tected Not Detect. Vib speedy Not Dete cted Not Detect. Vibri o Cholerae Not Detect ed Not Detect. Y. ente rocolit. Not Detected Not Detect. E. coli E AEC Not Detected N ot Detect. E. coli EPE C Not Detected Not Detect. E. coli ETEC Not Detected Not D etect. E. coli STEC No t Detected Not Det ect. E. coli O157 Not a pplicable Not Detec t. E. coli contai dewey the O157 anti gen are a subset o f Shiga-lik e toxin-producing E. coli (STEC). Shigella/EIEC Not D etected Not Detect . Cr yptosporidium Not Det ected Not Detect. Cycl ospora Not Detec manda Not Detect. E. his tolytica Not Detecte d Not Detect. Giardia lamblia Not Detected Not Detect. Adenovirus Not Detected No t Detect. Astrovirus Not Detected Not Detect. Norovirus N ot Detected Not De tect. Rotavirus A Not Detected Not Dete ct. Sapovirus Not D etected Not Detect . CT ABDOMEN AND PELVIS 12/08/22 FINDINGS: LUNG BASES: The visualized lung bases are unremarkable. LIVER, GALLBLADDER, AND BILIARY TREE: The liver is normal in size, shape, and attenuation. No focal hepatic lesion or biliary ductal dilatation is present. The gallbladder is unremarkable with no evidence of radiopaque gallstones, gallbladder wall thickening, or obvious pericholecystic inflammatory changes. PANCREAS: Unremarkable. SPLEEN: Unremarkable. ADRENAL GLANDS: Unremarkable. KIDNEYS AND URETERS: The kidneys are normal in size, shape, and attenuation. No hydronephrosis, hydroureter, or calculi seen. No perinephric stranding. BLADDER: Unremarkable. GASTROINTESTINAL TRACT: Colonic diverticulosis with very slight wall thickening along the distal descending colon/sigmoid colon without pericolonic inflammatory changes may reflect a subacute versus resolving diverticulitis. Correlation with symptomatology. The small and large bowel are unremarkable. The appendix is unremarkable. ABDOMINAL WALL: No significant hernia is appreciated. LYMPH NODES: Normal. VASCULAR: Unremarkable. PELVIC VISCERA: Prostate gland measures 4.7 cm. OSSEOUS STRUCTURES: Multilevel degenerative changes of the thoracolumbar lumbosacral spine. Sclerotic focus in the posterior aspect of the right acetabular roof is clearly representing a bone island. CT/CT abdomen pelvis w IV con IMPRESSION: Colonic diverticulosis with very slight wall thickening along the distal descending colon/sigmoid colon without pericolonic inflammatory changes may reflect a subacute versus resolving diverticulitis. Correlation with symptomatology. TODAY'S VISIT Needs work note through Wednesday 01/03 r/t this. Still has left sided pain, IBD vs secondary TICS, will first tx augmentin and if not improved go to steroids etc. ROV 4 weeks. [facility] Medical History IBS (irritable bowel syndrome) GERD (gastroesophageal reflux disease) Fatty liver HTN (hypertension) Surgical History History of cystoscopy History of facial surgery Hx of colonoscopy History of esophagogastroduodenoscopy (EGD) Family History Father No problems noted. Mother No problems noted. Brother No problems noted. Sister No problems noted. 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 Review of Systems Const Denies fatigue, Denies fever(s), Denies night sweats, Denies poor appetite and Denies weight loss ENT Reports Normal hearing present, Denies dental pain, Denies dysphagia, Denies hearing loss, Denies mouth pain, Denies odynophagia, Denies throat swelling, Denies tongue swelling and Reports other (Dentition adequate) Card Reports no additional complaints Resp Reports no additional complaints GI Reports abdominal pain, Denies melena, Denies bloating, Denies hematochezia, Denies constipation, Denies GI cramping, Denies dysphagia, Denies excessive flatus, Denies early satiety, Reports heartburn, Denies diarrhea, Reports loose stools, Denies nausea, Denies odynophagia, Denies vomiting and Denies hematemesis Skin/Breast Denies pruritus, Denies lesions, Denies rash and Denies jaundice Neuro Reports Normal hearing present and Denies Abnormal speech present Endo Denies fatigue Aller/Immun Denies throat swelling and Denies tongue swelling Physical Exam Vital Signs: Last Vital Signs Pulse 80 12/24/22 16:17 BP 117/82 12/24/22 16:17 BMI result Body Mass Index 30.1 Const General: cooperative, no acute distress, well developed and well groomed Nutritional Appearance: well nourished and obese Orientation/consciousness: oriented to person, oriented to place and oriented to time Limitations: No language barrier HEENT Head: Yes normocephalic and Yes atraumatic Eyes General: appearance normal, both eyes and all related structures Pupils: Equal, round and reactive pupils present Neck Neck: Yes normal visual inspection and Yes no lymphadenopathy Thyroid: Thyroid normal Resp Effort & Inspection: normal respiratory effort and able to speak in complete sentences Auscultation: clear to auscultation bilaterally Cardio Rate: regular rate Rhythm: regular rhythm Heart sounds: Normal, physiologic split S2 sound present Peripheral pulses: radial pulses present and posterior tibial pulses present GI Inspection: No distended, No Abdominal panniculus present and Yes obesity Palpation (GI): Soft to palpation, nontender, no guarding, not rigid and No hepatosplenomegaly present Percussion: Yes normal to percussion Auscultation: normal bowel sounds Rectal Exam - Male: Yes deferred Skin General skin exam: no rashes or lesions noted, turgor normal, skin not dry, no jaundice, No spider nevi and no striae Rashes: no rashes Nails: normal Neuro General: oriented to person, oriented to place and oriented to time Cranial nerves: Yes Equal, round and reactive pupils present and Yes Normal hearing present Speech: No Abnormal speech present Extrem General: Yes normal to inspection, No clubbing, No cyanosis and No edema Psych Appearance: grossly normal and well kempt Mental Status: mental status grossly normal Speech and movement: Normal speech and movement present Affect: normal affect Attitude: cooperative Thought process: Normal thought process present and not confabulating Thought content: Normal thought content present Insight: Limited insight present (Psych) Judgement: Limited judgement present (Psych) Results Reviewed Results Reviewed: Laboratory Tests 11/04/22 11/04/22 11/06/22 16:47 16:47 08:00 WBC 8.8 Hgb 15.2 Hct 44.5 Plt Count 233 Estimated GFR > 60 Total Bilirubin 0.3 AST 26 ALT 27 Alkaline Phosphatase 114 C-Reactive Protein 0.35 Amylase 97 Lipase 47 Stool Calprotectin 174 H 11/06/22-920 OTHR : ORDERED: GI Panel Test Result Flag Reference Site Campylobacter Not Detected Not Detect. P. shigelloides Not Detected Not Detect. Salmonella Not Detected Not Detect. Vibrio Not Detected Not Detect. Vibrio Cholerae Not Detected Not Detect. Y. enterocolit. Not Detected Not Detect. E. coli EAEC Not Detected Not Detect. E. coli EPEC Not Detected Not Detect. E. coli ETEC Not Detected Not Detect. E. coli STEC Not Detected Not Detect. E. coli O157 Not applicable Not Detect. E. coli containing the O157 antigen are a subset of Shiga-like toxin-producing E. coli (STEC). Shigella/EIEC Not Detected Not Detect. Cryptosporidium Not Detected Not Detect. Cyclospora Not Detected Not Detect. E. histolytica Not Detected Not Detect. Giardia lamblia Not Detected Not Detect. Adenovirus Not Detected Not Detect. Astrovirus Not Detected Not Detect. Norovirus Not Detected Not Detect. Rotavirus A Not Detected Not Detect. Sapovirus Not Detected Not Detect. CT ABDOMEN AND PELVIS 12/08/22 FINDINGS: LUNG BASES: The visualized lung bases are unremarkable. LIVER, GALLBLADDER, AND BILIARY TREE: The liver is normal in size, shape, and attenuation. No focal hepatic lesion or biliary ductal dilatation is present. The gallbladder is unremarkable with no evidence of radiopaque gallstones, gallbladder wall thickening, or obvious pericholecystic inflammatory changes. PANCREAS: Unremarkable. SPLEEN: Unremarkable. ADRENAL GLANDS: Unremarkable. KIDNEYS AND URETERS: The kidneys are normal in size, shape, and attenuation. No hydronephrosis, hydroureter, or calculi seen. No perinephric stranding. BLADDER: Unremarkable. GASTROINTESTINAL TRACT: Colonic diverticulosis with very slight wall thickening along the distal descending colon/sigmoid colon without pericolonic inflammatory changes may reflect a subacute versus resolving diverticulitis. Correlation with symptomatology. The small and large bowel are unremarkable. The appendix is unremarkable. ABDOMINAL WALL: No significant hernia is appreciated. LYMPH NODES: Normal. VASCULAR: Unremarkable. PELVIC VISCERA: Prostate gland measures 4.7 cm. OSSEOUS STRUCTURES: Multilevel degenerative changes of the thoracolumbar lumbosacral spine. Sclerotic focus in the posterior aspect of the right acetabular roof is clearly representing a bone island. CT/CT abdomen pelvis w IV con IMPRESSION: Colonic diverticulosis with very slight wall thickening along the distal descending colon/sigmoid colon without pericolonic inflammatory changes may reflect a subacute versus resolving diverticulitis. Correlation with symptomatology. Assessment & Plan Assessment & Plan (1) Diverticulitis: Comment: ? vs IBD Code(s): K57.92 - Diverticulitis of intestine, part unspecified, without perforation or abscess without bleeding Plan Needs work note through Wednesday 01/03 r/t this. Still has left sided pain, IBD vs secondary TICS, will first tx augmentin and if not improved go to steroids etc. ROV 4 weeks. Medications: New amoxicillin-pot clavulanate 875-125 mg 1 tab PO BID 28 tabs 0RF 14 days K57.92 - Diverticulitis of intestine, part unspecified, without perforation or abscess without bleeding Refilled dicyclomine 20 mg PO QID 120 tabs 6RF 30 days K58.9 - Irritable bowel syndrome without diarrhea metoclopramide HCl (Reglan) 5 mg PO .T.I.D. A.C. 60 tabs 6RF nausea and vomiting R11.2 - Nausea with vomiting, unspecified pantoprazole 40 mg PO BEDTIME 30 tabs 6RF K21.9 - Gastro-esophageal reflux disease without esophagitis Coding Level of Care Code Est Pt Level 3 (58240) Diagnoses Diverticulitis K57.92
== END 2022-12-24 17:03 | disposition home or self-care (01) ==
PROVIDERS: PCP Internal Medicine; Visit Provider Nurse Practitioner
DX: K57.92 Diverticulitis of intestine, part unspecified, without perforation or abscess without bleeding (principal)
CPT/HCPCS: 99213

== ENCOUNTER → 2022-12-24 16:14 | Outpatient (BNVA) | payer OTHER, SELFPAY | PROVIDERS: PCP Internal Medicine; Visit Provider Nurse Practitioner | DX: K57.92 Diverticulitis of intestine, part unspecified, without perforation or abscess without bleeding (principal) | CPT/HCPCS: 99212 ==

== ENCOUNTER 2023-01-21 16:12 | Outpatient (AMB) | payer OTHER, SELFPAY ==
--- NOTE | 2023-01-21 16:15 | A.OFFVIS_ITS ---
Intake Vital Signs 01/21/23 16:17 Height 5 ft 7 in Weight 198 lb 6.656 oz BMI 31.1 BP 126/73 Blood Pressure Location Rt brachial Position Sitting Pulse 77 Pulse Source Pulse Oximeter Intake Visit Reasons: 4 week follow up Intake Note: Pt presents to the office today for a 4 week follow up. Pt states he is feeling okay. Pt states he gets nauseous everyday but last night was bad for him. Pt states he still throws up once a day usually in the afternoon. Allergies No Known Allergies [No Known Allergies*] Allergy (Verified 01/21/23 16:19) HPI 4 week follow up HPI Details Assessment & Plan (1) Diverticuliti s: Comment: ? vs IBD Co de(s): K57.92 - Di verticulitis of in testine, part unsp ecified, without p erforation or absc ess without bleedi ng Medicatio ns: New amoxicil didi-pot clavulanat e 875-125 mg1 tab PO BID 14 days 28 tabs 0RFK57.92 - Diverticulitis of intestine, unspeci fied, without perf oration or abscess without bleedingR efilled dicyclomi ne20 mg PO QID 120 tabs 6RF 30 daysK 58.9 - Irritable b owel syndrome with out diarrheametocl opramide HCl (Regl an)5 mg PO .T.I.D. A.C. 60 tabs 6RF nausea and vomitin gR11.2 - Nausea wi th vomiting, unspe cifiedpantoprazole 40 mg PO BEDTIME 3 0 tabs 6RFK21.9 - Gastro-esophageal reflux disease wit hout esophagitis Needs work not thr ough Wednesday 01/03 r/t this. Still has left sided pa in, IBD vs seconda ry TICS, will firs t tx augmentin and if not improved g o to steroids etc. TOD AY'S VISIT He was feeling better af ter the augmentin, but the pain and the nausea returne d again a few days ago. He feels his coffee may be c/t his bowel irritab ility. But he LOVE S coffee! Now we w ill try a course o f steroids to see if we can calm his bowels down. I ex plain the taper sc hedule and any pos sible a/e possible and reasons to di scontinue if a/e t oo intense. He c ontinues on his pa ntoprazole, fiber and bentyl and reg regulo. ROV 8 weeks . [facility] Medical History IBS (irritable bowel syndrome) GERD (gastroesophageal reflux disease) Fatty liver HTN (hypertension) Surgical History History of cystoscopy History of facial surgery Hx of colonoscopy History of esophagogastroduodenoscopy (EGD) Family History Father No problems noted. Mother No problems noted. Brother No problems noted. Sister No problems noted. 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 Review of Systems Const Denies fatigue, Denies fever(s), Denies night sweats, Denies poor appetite and Denies weight loss ENT Reports Normal hearing present, Denies dental pain, Denies dysphagia, Denies hearing loss, Denies mouth pain, Denies odynophagia, Denies throat swelling, Denies tongue swelling and Reports other (Dentition adequate) Card Reports no additional complaints Resp Reports no additional complaints GI Reports abdominal pain, Denies melena, Denies bloating, Denies hematochezia, Denies constipation, Denies GI cramping, Denies dysphagia, Denies excessive flatus, Denies early satiety, Reports heartburn, Denies diarrhea, Reports loose stools, Denies nausea, Denies odynophagia, Denies vomiting and Denies hematemesis Skin/Breast Denies pruritus, Denies lesions, Denies rash and Denies jaundice Neuro Reports Normal hearing present and Denies Abnormal speech present Endo Denies fatigue Aller/Immun Denies throat swelling and Denies tongue swelling Physical Exam Const General: cooperative, no acute distress, well developed and well groomed Nutritional Appearance: average body habitus and well nourished Orientation/consciousness: oriented to person, oriented to place and oriented to time Limitations: No language barrier HEENT Head: Yes normocephalic and Yes atraumatic Eyes General: appearance normal, both eyes and all related structures Pupils: Equal, round and reactive pupils present Neck Neck: Yes normal visual inspection and Yes no lymphadenopathy Thyroid: Thyroid normal Resp Effort & Inspection: normal respiratory effort and able to speak in complete sentences Auscultation: clear to auscultation bilaterally Cardio Rate: regular rate Rhythm: regular rhythm Heart sounds: Normal, physiologic split S2 sound present Peripheral pulses: radial pulses present and posterior tibial pulses present GI Inspection: No distended and No Abdominal panniculus present Palpation (GI): Soft to palpation, Tenderness to palpation present (GI) in the LLQ, no guarding, not rigid and No hepatosplenomegaly present Percussion: Yes normal to percussion Auscultation: normal bowel sounds Rectal Exam - Male: Yes deferred Skin General skin exam: no rashes or lesions noted, turgor normal, skin not dry, no jaundice, No spider nevi and no striae Rashes: no rashes Nails: normal Neuro General: oriented to person, oriented to place and oriented to time Cranial nerves: Yes Equal, round and reactive pupils present and Yes Normal hearing present Speech: No Abnormal speech present Extrem General: Yes normal to inspection, No clubbing, No cyanosis and No edema Psych Appearance: grossly normal and well kempt Mental Status: mental status grossly normal Speech and movement: Normal speech and movement present Affect: normal affect Attitude: cooperative Thought process: Normal thought process present and not confabulating Thought content: Normal thought content present Insight: Fair insight present (Psych) Judgement: Fair judgement present (Psych) Assessment & Plan Assessment & Plan (1) Left sided abdominal pain: Code(s): R10.9 - Unspecified abdominal pain (2) E coli enteritis: Code(s): A04.4 - Other intestinal Escherichia coli infections (3) Diverticulitis: Comment: ? vs IBD Code(s): K57.92 - Diverticulitis of intestine, part unspecified, without perforation or abscess without bleeding (4) GERD (gastroesophageal reflux disease): Code(s): K21.9 - Gastro-esophageal reflux disease without esophagitis Plan He was feeling better after the augmentin, but the pain and the nausea returned again a few days ago. He feels his coffee may be c/t his bowel irritability. But he LOVES coffee! Now we will try a course of steroids to see if we can calm his bowels down. I explain the taper schedule and any possible a/e possible and re asons to discontinue if a/e too intense. He continues on his pantoprazole, fiber and bentyl and reglan. ROV 8 weeks. Medications: New prednisone 10 mg orally 1d4gmqo, 5x2 days, 4x 2days, 2w2xmuc, 3q3gorh, 8o5yegx; 48 tabs 0RF Refilled pantoprazole 40 mg PO BEDTIME 30 tabs 6RF K21.9 - Gastro-esophageal reflux disease without esophagitis metoclopramide HCl (Reglan) 5 mg PO .T.I.D. A.C. 60 tabs 6RF nausea and vomiting R11.2 - Nausea with vomiting, unspecified psyllium husk (Daily Fiber) 0.8 grams (2 x 0.4 gram) PO QAM 60 caps 6RF K58.9 - Irritable bowel syndrome without diarrhea Coding Level of Care Code Est Pt Level 3 (08441) Diagnoses Left sided abdominal pain R10.9 E coli enteritis A04.4 Diverticulitis K57.92 GERD (gastroesophageal reflux disease) K21.9
[2023-01-21 16:17] VITALS: BP 126/73; PULSE 77; BMI 31.1
== END 2023-01-21 16:35 | disposition home or self-care (01) ==
PROVIDERS: PCP Internal Medicine; Visit Provider Nurse Practitioner
DX: R10.9 Unspecified abdominal pain (principal); A04.4 Other intestinal Escherichia coli infections; K57.92 Diverticulitis of intestine, part unspecified, without perforation or abscess without bleeding; K21.9 Gastro-esophageal reflux disease without esophagitis
CPT/HCPCS: 99213

== ENCOUNTER → 2023-01-21 16:12 | Outpatient (BNVA) | payer OTHER, SELFPAY | PROVIDERS: PCP Internal Medicine; Visit Provider Nurse Practitioner | DX: R10.9 Unspecified abdominal pain (principal); A04.4 Other intestinal Escherichia coli infections; K57.92 Diverticulitis of intestine, part unspecified, without perforation or abscess without bleeding; K21.9 Gastro-esophageal reflux disease without esophagitis | CPT/HCPCS: 99212 ==

== ENCOUNTER 2023-03-18 16:04 | Outpatient (AMB) | payer OTHER, SELFPAY ==
--- NOTE | 2023-03-18 16:06 | A.OFFVIS_ITS ---
Intake Vital Signs 03/18/23 16:11 Height 5 ft 7 in Weight 196 lb 3.382 oz BMI 30.7 BP 128/81 Blood Pressure Location Rt brachial Position Sitting Pulse 85 Intake Visit Reasons: 8 week follow up Intake Note: Patient presents to in office visit today in follow up of abdominal pain. CC: Patient c/o abdominal pain and noise from his abdomen. Denies other GI symptoms. 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 vs IBD Code(s): K57.92 - Diverticulitis of intestine, part unspecified, without perforation or abscess without bleeding (4) GERD (gastroesophageal reflux diseas e): Code(s): K21.9 - Gastro-esophageal reflux disease without esophagitis Plan He was feeling better after the augmentin, but the pain and the nausea returned again a few days ago. He feels his coffee may be c/t his bowel irritability. But he LOVES coffee! Now we will try a course of steroids to see if we can calm his bowels down. I explain the taper schedule and any possible a/e possible and reasons to discontinue if a/e too intense. He continues on his pantoprazole, fiber and bentyl and reglan. ROV 8 weeks. Medications: New prednisone 10 mg orally 6x3d ays, 5x2 days, 4x 2days, 0b5mwkq, 2x 2days, 6z3megd; 4 8 tabs 0RF Refilled pantoprazole 40 mg PO BEDTIME 30 tabs 6RF K21.9 - Gastro-eso phageal reflux dis ease without esoph agitis metoclopramide HCl (Reglan) 5 mg PO .T.I.D. A .C. 60 tabs 6RF na usea and vomiting R11.2 - Nausea wit h vomiting, unspec ified psyllium husk (Lexy ly Fiber) 0.8 grams (2 x 0.4 gram) PO QAM 60 c aps 6RF K58.9 - Irritable bowel syndrome wit hout diarrhea TODAY'S VISIT On course of steroids elevated fecal calprotectin question ongoing tics versus early IBD that may need further testing. However, normal/negative colonoscopy 05/14/2022. He was having less pain when on the prednisone, but it is returning to the LLQ. His stools remain light, but no diarrhea. He also is having a return of nausea. He has started u sing the reglan again with good effect. We will do a trial longer of budesinide 9 mg tablet. ROV 6 weeks. [facility] Medical History IBS (irritable bowel syndrome) GERD (gastroesophageal reflux disease) Fatty liver HTN (hypertension) Surgical History History of cystoscopy History of facial surgery Hx of colonoscopy History of esophagogastroduodenoscopy (EGD) Family History Father No problems noted. Mother No problems noted. Brother No problems noted. Sister No problems noted. 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 Review of Systems Const Denies fatigue, Denies fever(s), Denies night sweats, Denies poor appetite and Denies weight loss ENT Reports Normal hearing present, Denies dental pain, Denies dysphagia, Denies hearing loss, Denies mouth pain, Denies odynophagia, Denies throat swelling, Denies tongue swelling and Reports other (Dentition adequate) Card Reports no additional complaints Resp Reports no additional complaints GI Details: Reports abdominal pain, Denies melena, Denies bloating, Denies hematochezia, Reports change in bowel habits, Denies constipation, Denies GI cramping, Denies dysphagia, Denies excessive flatus, Denies early satiety, Reports heartburn, Denies diarrhea, Reports nausea, Denies odynophagia, Denies vomiting and Denies hematemesis Skin/Breast Denies pruritus, Denies lesions, Denies rash and Denies jaundice Neuro Reports Normal hearing present and Denies Abnormal speech present Endo Denies fatigue Aller/Immun Denies throat swelling and Denies tongue swelling Physical Exam Vital Signs: Last Vital Signs Pulse 85 03/18/23 16:11 BP 128/81 03/18/23 16:11 BMI result Body Mass Index 30.7 Const General: cooperative, no acute distress, well developed and well groomed Nutritional Appearance: well nourished and obese Orientation/consciousness: oriented to person, oriented to place and oriented to time Limitations: No language barrier HEENT Head: Yes normocephalic and Yes atraumatic Eyes General: appearance normal, both eyes and all related structures Pupils: Equal, round and reactive pupils present Neck Neck: Yes normal visual inspection and Yes no lymphadenopathy Thyroid: Thyroid normal Resp Effort & Inspection: normal respiratory effort and able to speak in complete sentences Auscultation: clear to auscultation bilaterally Cardio Rate: regular rate Rhythm: regular rhythm Heart sounds: Normal, physiologic split S2 sound present Peripheral pulses: radial pulses present and posterior tibial pulses present GI Inspection: No distended, No Abdominal panniculus present and Yes obesity Palpation (GI): Soft to palpation, nontender, no guarding, not rigid and No hepatosplenomegaly present Percussion: Yes normal to percussion Auscultation: normal bowel sounds Rectal Exam - Male: Yes deferred Skin General skin exam: no rashes or lesions noted, turgor normal, skin not dry, no jaundice, No spider nevi and no striae Rashes: no rashes Nails: normal Neuro General: oriented to person, oriented to place and oriented to time Cranial nerves: Yes Equal, round and reactive pupils present and Yes Normal hearing present Speech: No Abnormal speech present Extrem General: Yes normal to inspection, No clubbing, No cyanosis and No edema Psych Appearance: grossly normal and well kempt Mental Status: mental status grossly normal Speech and movement: Normal speech and movement present Affect: normal affect Attitude: cooperative Thought process: Normal thought process present and not confabulating Thought content: Normal thought content present Insight: Fair insight present (Psych) Judgement: Fair judgement present (Psych) Assessment & Plan Assessment & Plan (1) Left sided abdominal pain: Code(s): R10.9 - Unspecified abdominal pain (2) GERD (gastroesophageal reflux disease): Code(s): K21.9 - Gastro-esophageal reflux disease without esophagitis (3) Nausea and vomiting: Comment: The reason for his continued nausea remains elusive. EGD in 2012 mild gastritis, and after his reaction to the colonoscopy (although likely viral herpes) I am not in a [place] to do another EGD. Gastric emptying study was normal, but he may have intermittent delays due to parasympathetic dysfunction. Code(s): R11.2 - Nausea with vomiting, unspecified (4) Cano's esophagus determined by endoscopy: Comment: diagnosed on EGD in 2019 Code(s): K22.70 - Cano's esophagus without dysplasia (5) Diverticulitis: Comment: ? vs IBD Code(s): K57.92 - Diverticulitis of intestine, part unspecified, without perforation or abscess without bleeding Plan On course of steroids elevated fecal calprotectin question ongoing tics versus early IBD that may need further testing. However, normal/negative colonoscopy 05/14/2022. He was having less pain when on the prednisone, but it is returning to the LLQ. His stools remain light, but no diarrhea. He also is having a return of nausea. He has started u sing the reglan again with good effect. We will do a trial longer of budesinide 9 mg tablet. ROV 6 weeks. Medications: New budesonide 9 mg PO QAM 30 ea 3RF K57.92 - Diverticulitis of intestine, part unspecified, without perforation or abscess without bleeding simethicone after meals 180 mg PO QID 30 days 120 caps 3RF Refilled dicyclomine 20 mg PO QID 30 days 120 tabs 6RF K58.9 - Irritable bowel syndrome without diarrhea Coding Level of Care Code Est Pt Level 3 (96513) Diagnoses Left sided abdominal pain R10.9 GERD (gastroesophageal reflux disease) K21.9 Nausea and vomiting R11.2 Cano's esophagus determined by endoscopy K22.70 Diverticulitis K57.92
[2023-03-18 16:11] VITALS: BP 128/81; PULSE 85; BMI 30.7
== END 2023-03-18 16:52 | disposition home or self-care (01) ==
PROVIDERS: PCP Internal Medicine; Visit Provider Nurse Practitioner
DX: R10.9 Unspecified abdominal pain (principal); K21.9 Gastro-esophageal reflux disease without esophagitis; R11.2 Nausea with vomiting, unspecified; K22.70 Barrett's esophagus without dysplasia; K57.92 Diverticulitis of intestine, part unspecified, without perforation or abscess without bleeding
CPT/HCPCS: 99213

== ENCOUNTER → 2023-03-18 16:04 | Outpatient (BNVA) | payer OTHER, SELFPAY | PROVIDERS: PCP Internal Medicine; Visit Provider Nurse Practitioner | DX: K57.92 Diverticulitis of intestine, part unspecified, without perforation or abscess without bleeding (principal); K22.70 Barrett's esophagus without dysplasia; R10.9 Unspecified abdominal pain; K21.9 Gastro-esophageal reflux disease without esophagitis; R11.2 Nausea with vomiting, unspecified | CPT/HCPCS: 99212 ==

== ENCOUNTER 2023-04-29 15:59 | Outpatient (AMB) | payer OTHER, SELFPAY ==
[2023-04-29 16:01] VITALS: BP 113/77; PULSE 75; BMI 30.7
--- NOTE | 2023-04-29 16:01 | A.OFFVIS_ITS ---
Intake Vital Signs 04/29/23 16:01 Height 5 ft 7 in Weight 195 lb 12.328 oz BMI 30.7 BP 113/77 Blood Pressure Location Lt brachial Position Sitting Pulse 75 Intake Visit Reasons: 6 weeks follow up Intake Note: Patient presents to in office visit today in follow up of abdominal pain. CC:Patient c/o LLQ pain and reports feeling a lump in that area. Domestic Housekeeper Required: No Accompanied by: Self / Same As Patient Allergies No Known Allergies [No Known Allergies*] Allergy (Verified 04/29/23 16:06) HPI 6 weeks follow up HPI Details Assessment & Plan (1) Left sided abdominal pain: Code(s): R10.9 - Unspecified abdominal pain (2) GERD (gastroesophageal reflux diseas e): Code(s): K21.9 - Gastro-esophageal reflux disease without esophagitis (3) Nausea and vomiting: Comment: The reason for his continued nausea remains elusive. EGD in 2011 mild gastritis, and after his reaction to the colonoscopy (although likely viral herpes) I am not in a ben[place] to do another EGD. Gastric emptying study was normal, but he may have intermittent delays due to parasympathetic dysfunction. Code(s): R11.2 - Nausea with vomiting, unspecified (4) Cano's esophagus determined by en doscopy: Comment: diagnosed on EGD in 2019 Code(s): K22.70 - Cano's esophagus without dysplasia (5) Diverticulitis: Comment: ? vs IBD Code(s): K57.92 - Diverticulitis of intestine, part unspecified, without perforation or abscess without bleeding Plan On course of steroids elevated fecal calprotectin question ongoing tics versus early IBD that may need further testing. However, normal/negative colonoscopy 05/14/2022. He was having less pain when on the prednisone, but it is returning to the LLQ. His stools remain light, but no diarrhea. He also is having a return of nausea. He has started u sing the reglan again with good effect. We will do a trial longer of budesinide 9 mg tablet. ROV 6 weeks. Medications: New budesonide 9 mg PO QAM 30 ea 3RF K57.92 - Diverticu litis of intestine , part unspecified , without perforat ion or abscess wit hout bleeding simethicone aft er meals 180 mg PO QID 30 days 120 caps 3RF Refilled dicyclomine 20 mg PO QID 30 d ays 120 tabs 6RF K58.9 - Irritable bowel syndrome wit hout diarrhea TODAY'S VISIT (On course of steroids elevated fecal ca lprotectin question ongoing tics versus early IBD that may need further testing. However, normal/negative colonoscopy 05/14/2022) He never received the budesonide and he continues to have pain in the left lower quadrant. He feels a squeezing pain in this area and it is worse when he tries to lay on his stomach to sleep. He is also requesting that we restart his Creon which I certainly will do. I am uncertain if his pain is related to the colon he had a CT scan that was negative for any organ pathology including the colon in December of 2022 and an unremarkable colonoscopy however the musculoskeletal component of the CT scan was interesting in his as follows: OSSEOUS STRUCTURES: Multilevel degenerative changes of the thoracolumbar lumbosacral spine. Sclerotic focus in the posterior aspect of the right acetabular roof is clearly representing a bone island. This leads me to wonder if he does not have a musculoskeletal problem such as sacroiliitis contributing to his presentation. However will try to culture could [facility] in see why he never received the budesonide since he seemed to improve on this in the past and he did have an elevated fecal calprotectin. He also finds that his pain is helped by dicyclomine so he may have an overlap of more than 1 problem. He continues on Reglan 3 times a day as needed for nausea. He also continues on pantoprazole 40 mg, psyllium husk fiber and simethicone. I am going to get x-rays of his left hip, his thoracic and lumbar spines and his sacral iliac joint and I will see him back in 6 weeks. [facility] Medical History IBS (irritable bowel syndrome) GERD (gastroesophageal reflux disease) Fatty liver HTN (hypertension) Surgical History History of cystoscopy History of facial surgery Hx of colonoscopy History of esophagogastroduodenoscopy (EGD) Family History Father No problems noted. Mother No problems noted. Brother No problems noted. Sister No problems noted. 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 Review of Systems Const Denies fatigue, Denies fever(s), Denies night sweats, Denies poor appetite and Denies weight loss ENT Reports Normal hearing present, Denies dental pain, Denies dysphagia, Denies hearing loss, Denies mouth pain, Denies odynophagia, Denies throat swelling, Denies tongue swelling and Reports other (Dentition adequate) Card Reports no additional complaints Resp Reports no additional complaints GI Details: Reports abdominal pain, Denies melena, Reports bloating, Denies hematochezia, Denies constipation, Reports GI cramping, Denies dysphagia, Denies excessive flatus, Denies early satiety, Reports heartburn, Reports diarrhea, Reports nausea, Denies odynophagia, Denies vomiting and Denies hematemesis Reports flank pain Musc Reports back pain Skin/Breast Denies pruritus, Denies lesions, Denies rash and Denies jaundice Neuro Reports Normal hearing present and Denies Abnormal speech present Endo Denies fatigue Aller/Immun Denies throat swelling and Denies tongue swelling Physical Exam Vital Signs: Last Vital Signs Pulse 75 04/29/23 16:01 BP 113/77 04/29/23 16:01 BMI result Body Mass Index 30.7 Const General: cooperative, no acute distress, well developed and well groomed Nutritional Appearance: well nourished and obese Orientation/consciousness: oriented to person, oriented to place and oriented to time Limitations: No language barrier HEENT Head: Yes normocephalic and Yes atraumatic Eyes General: appearance normal, both eyes and all related structures Pupils: Equal, round and reactive pupils present Neck Neck: Yes normal visual inspection and Yes no lymphadenopathy Thyroid: Thyroid normal Resp Effort & Inspection: normal respiratory effort and able to speak in complete sentences Auscultation: clear to auscultation bilaterally Cardio Rate: regular rate Rhythm: regular rhythm Heart sounds: Normal, physiologic split S2 sound present Peripheral pulses: radial pulses present and posterior tibial pulses present GI Inspection: No distended, No Abdominal panniculus present and Yes obesity Palpation (GI): Soft to palpation, Tenderness to palpation present (GI) in the LLQ, no guarding, not rigid and No hepatosplenomegaly present Percussion: Yes normal to percussion Auscultation: normal bowel sounds Rectal Exam - Male: Yes deferred Skin General skin exam: no rashes or lesions noted, turgor normal, skin not dry, no jaundice, No spider nevi and no striae Rashes: no rashes Nails: normal Neuro General: oriented to person, oriented to place and oriented to time Cranial nerves: Yes Equal, round and reactive pupils present and Yes Normal hearing present Speech: No Abnormal speech present Extrem General: Yes normal to inspection, No clubbing, No cyanosis and No edema Psych Appearance: grossly normal and well kempt Mental Status: mental status grossly normal Speech and movement: Normal speech and movement present Affect: normal affect Attitude: cooperative Thought process: Normal thought process present and not confabulating Thought content: Normal thought content present Insight: Limited insight present (Psych) Judgement: Limited judgement present (Psych) Assessment & Plan Assessment & Plan (1) IBS (irritable bowel syndrome): Code(s): K58.9 - Irritable bowel syndrome without diarrhea (2) Back pain: Code(s): M54.9 - Dorsalgia, unspecified (3) Groin pain: Code(s): R10.30 - Lower abdominal pain, unspecified Plan (On course of steroids elevated fecal calprotectin question ongoing tics versus early IBD that may need further testing. However, normal/negative colonoscopy 05/14/2022) He never received the budesonide and he continues to have pain in the left lower quadrant. He feels a squeezing pain in this area and it is worse when he tries to lay on his stomach to sleep. He is also requesting that we restart his Creon which I certainly will do. I am uncertain if his pain is related to the colon he had a CT scan that was negative for any organ pathology including the colon in December of 2022 and an unremarkable colonoscopy however the musculoskeletal component of the CT scan was interesting in his as follows: OSSEOUS STRUCTURES: Multilevel degenerative changes of the thoracolumbar lumbosacral spine. Sclerotic focus in the posterior aspect of the right acetabular roof is clearly representing a bone island. This leads me to wonder if he does not have a musculoskeletal problem such as sacroiliitis contributing to his presentation. However will try to culture [facility] see why he never received the budesonide since he seemed to improve on this in the past and he did have an elevated fecal calp rotectin. He also finds that his pain is helped by dicyclomine so he may have an overlap of more than 1 problem. He continues on Reglan 3 times a day as needed for nausea. He also continues on pantoprazole 40 mg, psyllium husk fiber and simethicone. I am going to get x-rays of his left hip, his thoracic and lumbar spines and his sacral iliac joint and I will see him back in 6 weeks. Orders: Orders XR thoracic spine 2V Today M54.9 - Dorsalgia, unspecified, R10.30 - Lower abdominal pain, unspecified XR lumbar spine 2-3V Today M54.9 - Dorsalgia, unspecified, R10.30 - Lower abdominal pain, unspecified XR sacroiliac joint min 3V Today M54.9 - Dorsalgia, unspecified, R10.30 - Lower abdominal pain, unspecified XR hip LT min 2V Today M54.9 - Dorsalgia, unspecified, R10.30 - Lower abdominal pain, unspecified Medications: New [id number] 36,000-114,000- 180,000 unit (Creon) administer with meals and/or snacks 2 caps PO BID 120 caps 6RF K58.9 - Irritable bowel syndrome without diarrhea Refilled dicyclomine 20 mg PO QID 30 days 120 tabs 6RF K58.9 - Irritable bowel syndrome without diarrhea budesonide 9 mg PO QAM 30 ea 3RF K57.92 - Diverticulitis of intestine, part unspecified, without perforation or abscess without bleeding Coding Level of Care Code Est Pt Level 4 (18377) Diagnoses IBS (irritable bowel syndrome) K58.9 Back pain M54.9 Groin pain R10.30
== END 2023-04-29 16:28 | disposition home or self-care (01) ==
PROVIDERS: PCP Internal Medicine; Visit Provider Nurse Practitioner
DX: K58.9 Irritable bowel syndrome, unspecified (principal); M54.9 Dorsalgia, unspecified; R10.30 Lower abdominal pain, unspecified
CPT/HCPCS: 99214

== ENCOUNTER → 2023-04-29 15:59 | Outpatient (BNVA) | payer OTHER, SELFPAY | PROVIDERS: PCP Internal Medicine; Visit Provider Nurse Practitioner | DX: R10.30 Lower abdominal pain, unspecified (principal); M54.9 Dorsalgia, unspecified; K58.9 Irritable bowel syndrome, unspecified | CPT/HCPCS: 99212 ==

== ENCOUNTER 2023-05-03 09:01 | Outpatient (REF) | payer OTHER, SELFPAY ==
--- NOTE | ~2023-05-03 | XR_ITS ---
EXAMINATION: XR THORACIC SPINE, LUMBAR SPINE, SACROILIAC JOINTS, LEFT HIP CLINICAL INFORMATION: Back pain unspecified. COMPARISON: CT abdomen and pelvis 12/08/2022. Chest radiograph 09/15/2018. Lumbar spine radiographs 06/24/2018. TECHNIQUE: 3 views of the thoracic spine, 3 views of the lumbar spine, 3 views of the bilateral sacroiliac joints and 2 views of the left hip. FINDINGS: Thoracic Spine: S-shaped thoracolumbar scoliosis. Bones are diffusely demineralized. Mild multilevel degenerative changes in the thoracic spine. Lumbar Spine: Bones are diffusely demineralized. Advanced degenerative changes with loss of disc space height at L5-S1. Facet arthritis in the lower lumbar spine. Sacroiliac Joints: Moderate degenerative changes in the bilateral sacroiliac joints. Left Hip: Mild degenerative changes with mild joint space narrowing and hypertrophic change at the hip. Alignment is preserved. Limited visualization due to body habitus. XR/XR sacroiliac joint min 3V IMPRESSION: 1. Advanced degenerative changes at L5-S1. 2. Moderate degenerative changes in the bilateral sacroiliac joints. 3. Mild degenerative changes in the left hip.
--- NOTE | ~2023-05-03 | XR_ITS ---
EXAMINATION: XR THORACIC SPINE, LUMBAR SPINE, SACROILIAC JOINTS, LEFT HIP CLINICAL INFORMATION: Back pain unspecified. COMPARISON: CT abdomen and pelvis 12/08/2022. Chest radiograph 09/15/2018. Lumbar spine radiographs 06/24/2018. TECHNIQUE: 3 views of the thoracic spine, 3 views of the lumbar spine, 3 views of the bilateral sacroiliac joints and 2 views of the left hip. FINDINGS: Thoracic Spine: S-shaped thoracolumbar scoliosis. Bones are diffusely demineralized. Mild multilevel degenerative changes in the thoracic spine. Lumbar Spine: Bones are diffusely demineralized. Advanced degenerative changes with loss of disc space height at L5-S1. Facet arthritis in the lower lumbar spine. Sacroiliac Joints: Moderate degenerative changes in the bilateral sacroiliac joints. Left Hip: Mild degenerative changes with mild joint space narrowing and hypertrophic change at the hip. Alignment is preserved. Limited visualization due to body habitus. XR/XR hip LT min 2V IMPRESSION: 1. Advanced degenerative changes at L5-S1. 2. Moderate degenerative changes in the bilateral sacroiliac joints. 3. Mild degenerative changes in the left hip.
--- NOTE | ~2023-05-03 | XR_ITS ---
EXAMINATION: XR THORACIC SPINE, LUMBAR SPINE, SACROILIAC JOINTS, LEFT HIP CLINICAL INFORMATION: Back pain unspecified. COMPARISON: CT abdomen and pelvis 12/08/2022. Chest radiograph 09/15/2018. Lumbar spine radiographs 06/24/2018. TECHNIQUE: 3 views of the thoracic spine, 3 views of the lumbar spine, 3 views of the bilateral sacroiliac joints and 2 views of the left hip. FINDINGS: Thoracic Spine: S-shaped thoracolumbar scoliosis. Bones are diffusely demineralized. Mild multilevel degenerative changes in the thoracic spine. Lumbar Spine: Bones are diffusely demineralized. Advanced degenerative changes with loss of disc space height at L5-S1. Facet arthritis in the lower lumbar spine. Sacroiliac Joints: Moderate degenerative changes in the bilateral sacroiliac joints. Left Hip: Mild degenerative changes with mild joint space narrowing and hypertrophic change at the hip. Alignment is preserved. Limited visualization due to body habitus. XR/XR thoracic spine 2V IMPRESSION: 1. Advanced degenerative changes at L5-S1. 2. Moderate degenerative changes in the bilateral sacroiliac joints. 3. Mild degenerative changes in the left hip.
--- NOTE | ~2023-05-03 | XR_ITS ---
EXAMINATION: XR THORACIC SPINE, LUMBAR SPINE, SACROILIAC JOINTS, LEFT HIP CLINICAL INFORMATION: Back pain unspecified. COMPARISON: CT abdomen and pelvis 12/08/2022. Chest radiograph 09/15/2018. Lumbar spine radiographs 06/24/2018. TECHNIQUE: 3 views of the thoracic spine, 3 views of the lumbar spine, 3 views of the bilateral sacroiliac joints and 2 views of the left hip. FINDINGS: Thoracic Spine: S-shaped thoracolumbar scoliosis. Bones are diffusely demineralized. Mild multilevel degenerative changes in the thoracic spine. Lumbar Spine: Bones are diffusely demineralized. Advanced degenerative changes with loss of disc space height at L5-S1. Facet arthritis in the lower lumbar spine. Sacroiliac Joints: Moderate degenerative changes in the bilateral sacroiliac joints. Left Hip: Mild degenerative changes with mild joint space narrowing and hypertrophic change at the hip. Alignment is preserved. Limited visualization due to body habitus. XR/XR lumbar spine 2-3V IMPRESSION: 1. Advanced degenerative changes at L5-S1. 2. Moderate degenerative changes in the bilateral sacroiliac joints. 3. Mild degenerative changes in the left hip.
== END 2023-05-03 09:02 | disposition home or self-care (01) ==
LOC: HO.XRAY 09:01
PROVIDERS: PCP Internal Medicine; Visit Provider Nurse Practitioner
DX: M54.9 Dorsalgia, unspecified (principal); R10.30 Lower abdominal pain, unspecified
CPT/HCPCS: 72070; 72100; 72202; 73502

== ENCOUNTER 2023-07-12 16:08 | Outpatient (AMB) | payer OTHER, SELFPAY ==
--- NOTE | 2023-07-12 16:11 | A.OFFVIS_ITS ---
Vital Signs 07/12/23 16:12 Height 5 ft 7 in Weight 191 lb 12.835 oz BMI 30.0 BP 131/84 Blood Pressure Location Rt brachial Position Sitting Pulse 72 Intake Visit Reasons: 6 week follow up Intake Note: Mu presents to in office visit today in 6 weeks follow up. CC: Patient states that he continues feeling the same. He does not remember picking up or taking the Creon. Incident Response Manager Required: No Accompanied by: Self / Same As Patient Allergies No Known Allergies [No Known Allergies*] Allergy (Verified 07/12/23 16:17) HPI HPI 6 week follow up: Details: Assessment & Plan (1) IBS (irritable bowel syndrome): Code(s): K58.9 - Irritable bowel syndrome without diarrhea (2) Back pain: Code(s): M54.9 - Dorsalgia, unspecified (3) Groin pain: Code(s): R10.30 - Lower abdominal pain, unspecified Plan (On course of steroids elevated fecal calprotectin question ongoing tics versus early IBD that may need further testing. However, normal/negative colonoscopy 05/14/2022) He never received the budesonide and he continues to have pain in the left lower quadrant. He feels a squeezing pain in this area and it is worse when he tries to lay on his stomach to sleep. He is also requesting that we restart his Creon which I certainly will do. I am uncertain if his pain is related to the colon he had a CT scan that was negative for any organ pathology including the colon in December of 2022 and an unremarkable colonoscopy however the musculoskeletal component of the CT scan was interesting in his as follows: OSSEOUS STRUCTURES: Multilevel degenerative changes of the thoracolumbar lumbosacral spine. Sclerotic focus in the posterior aspect of the right acetabular roof is clearly representing a bone island. This leads me to wonder if he does not have a musculoskeletal problem such as sacroiliitis contributing to his presentation. However will try to culture could [facility] in see why he never received the budesonide since he seemed to improve on this in the past and he did have an elevated fecal calprotectin. He also finds that his pain is helped by dicyclomine so he may have an overlap of more than 1 problem. He continues on Reglan 3 times a day as needed for nausea. He also continues on pantoprazole 40 mg, psyllium husk fiber and simethicone. I am going to get x-rays of his left hip, his thoracic and lumbar spines and his sacral iliac joint and I will see him back in 6 weeks. Orders: Orders XR thoracic spine 2V Today M54.9 - Dorsalgia, unspecified, R10.30 - Lower abdominal pain, unspecified XR lumbar spine 2-3V Today M54.9 - Dorsalgia, unspecified, R10.30 - Lower abdominal pain, unspecified XR sacroiliac joint min 3V Today M54.9 - Dorsalgia, unspecified, R10.30 - Lower abdominal pain, unspecified XR hip LT min 2V Today M54.9 - Dorsalgia, unspecified, R10.30 - Lower abdominal pain, unspecified Medications: New nfmryj-[id number] 36,000-114,000- 180,000 unit (Creon) administer with meals and/or snacks 2 caps PO BID 120 caps 6RF K58.9 - Irritable bowel syndrome without diarrhea Refilled dicyclomine 20 mg PO QID 30 days 120 tabs 6RF K58.9 - Irritable bowel syndrome without diarrhea budesonide 9 mg PO QAM 30 ea 3RF K57.92 - Diverticulitis of intestine, part unspecified, without perforation or abscess without bleeding X-RAY OF THE LUMBAR THORACIC SPINE SI JOINTS AND HIPS 05/09/23 FINDINGS: Thoracic Spine: S-shaped thoracolumbar scoliosis. Bones are diffusely demineralized. Mild multilevel degenerative changes in the thoracic spine. Lumbar Spine: Bones are diffusely demineralized. Advanced degenerative changes with loss of disc space height at L5-S1. Facet arthritis in the lower lumbar spine. Sacroiliac Joints: Moderate degenerative changes in the bilateral sacroiliac joints. Left Hip: Mild degenerative changes with mild joint space narrowing and hypertrophic change at the hip. Alignment is preserved. Limited visualization due to body habitus. XR/XR thoracic spine 2V IMPRESSION: 1. Advanced degenerative changes at L5-S1. 2. Moderate degenerative changes in the bilateral sacroiliac joints. 3. Mild degenerative changes in the left hip. TODAY'S VISIT (On course of steroids elevated fecal calprotectin question ongoing tics versus early IBD that may need further testing. However, normal/negative colonoscopy 05/14/2022) He says I give up with the pain. BUT he has not received the budesinide or the creon. 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 He also feels a lot of gas and bubbling in the are of the pain. He continues to utilize dicyclomine so he may have an overlap of more than 1 problem. He continues on Reglan 3 times a day as needed for nausea. He also continues on pantoprazole 40 mg, psyllium husk fiber and simethicone. Given the x-ray findings of diffuse demineralization I think we should get a DEXA scan since this gentleman is only 47 years old! Depending on the response to budesonide we may need to discontinue this as it could contribute to further osteopenia/osteoporosis. ROV 4 weeks. [facility] Medical History IBS (irritable bowel syndrome) GERD (gastroesophageal reflux disease) Fatty liver HTN (hypertension) Surgical History History of cystoscopy History of facial surgery Hx of colonoscopy History of esophagogastroduodenoscopy (EGD) Family History Father No problems noted. Mother No problems noted. Brother No problems noted. Sister No problems noted. 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 Review of Systems Const Denies fatigue, Denies fever(s), Denies night sweats, Denies poor appetite and Denies weight loss ENT Reports Normal hearing present, Denies dental pain, Denies dysphagia, Denies hearing loss, Denies mouth pain, Denies odynophagia, Denies throat swelling, Denies tongue swelling and Reports other (Dentition adequate) Card Reports no additional complaints Resp Reports no additional complaints GI Details: Reports abdominal pain, Denies melena, Reports bloating, Denies hematochezia, Denies constipation, Denies GI cramping, Denies dysphagia, Denies excessive flatus, Denies early satiety, Denies heartburn, Denies diarrhea, Denies nausea, Denies odynophagia, Denies vomiting and Denies hematemesis Musc Reports back pain Skin/Breast Denies pruritus, Denies lesions, Denies rash and Denies jaundice Neuro Reports Normal hearing present and Denies Abnormal speech present Endo Denies fatigue Aller/Immun Denies throat swelling and Denies tongue swelling Physical Exam Vital Signs: Last Vital Signs Pulse 72 07/12/23 16:12 BP 131/84 07/12/23 16:12 BMI result Body Mass Index 30.0 Const General: cooperative, no acute distress, well developed and well groomed Nutritional Appearance: well nourished and obese Orientation/consciousness: oriented to person, oriented to place and oriented to time Limitations: No language barrier HEENT Head: Yes normocephalic and Yes atraumatic Eyes General: appearance normal, both eyes and all related structures Pupils: Equal, round and reactive pupils present Neck Neck: Yes normal visual inspection and Yes no lymphadenopathy Thyroid: Thyroid normal Resp Effort & Inspection: normal respiratory effort and able to speak in complete sentences Auscultation: clear to auscultation bilaterally Cardio Rate: regular rate Rhythm: regular rhythm Heart sounds: Normal, physiologic split S2 sound present Peripheral pulses: radial pulses present and posterior tibial pulses present GI Inspection: No distended, No Abdominal panniculus present and Yes obesity Palpation (GI): Soft to palpation, Tenderness to palpation present (GI) in the LLQ, no guarding, not rigid and No hepatosplenomegaly present Percussion: Yes normal to percussion Auscultation: normal bowel sounds Rectal Exam - Male: Yes deferred Back/Spine/Pelvis Other: Marked loss of normal lumbar lordosis thoracic scoliosis Thoracic/Lumbar Spine: straight leg raise negative bilaterally, No pain with thoraco-lumbar ROM, No paraspinal muscle tenderness, No thoracic spinal tenderness and No lumbar spinal tenderness Sacroiliac joints: bilaterally nontender; by compression of iliac crest and not passive hyperextion of lower ext Skin General skin exam: no rashes or lesions noted, turgor normal, skin not dry, no jaundice, No spider nevi and no striae Rashes: no rashes Nails: normal Neuro General: oriented to person, oriented to place and oriented to time Cranial nerves: Yes Equal, round and reactive pupils present and Yes Normal hearing present Speech: No Abnormal speech present Extrem General: Yes normal to inspection, No clubbing, No cyanosis and No edema Psych Appearance: grossly normal and well kempt Mental Status: mental status grossly normal Speech and movement: Normal speech and movement present Affect: normal affect Attitude: cooperative Thought process: Normal thought process present and not confabulating Thought content: Normal thought content present Insight: Fair insight present (Psych) Judgement: Fair judgement present (Psych) Results Reviewed Results Reviewed: X-RAY OF THE LUMBAR THORACIC SPINE SI JOINTS AND HIPS 05/09/23 FINDINGS: Thoracic Spine: S-shaped thoracolumbar scoliosis. Bones are diffusely demineralized. Mild multilevel degenerative changes in the thoracic spine. Lumbar Spine: Bones are diffusely demineralized. Advanced degenerative changes with loss of disc space height at L5-S1. Facet arthritis in the lower lumbar spine. Sacroiliac Joints: Moderate degenerative changes in the bilateral sacroiliac joints. Left Hip: Mild degenerative changes with mild joint space narrowing and hypertrophic change at the hip. Alignment is preserved. Limited visualization due to body habitus. XR/XR thoracic spine 2V IMPRESSION: 1. Advanced degenerative changes at L5-S1. 2. Moderate degenerative changes in the bilateral sacroiliac joints. 3. Mild degenerative changes in the left hip. Assessment & Plan Assessment & Plan (1) Back pain: Code(s): M54.9 - Dorsalgia, unspecified Category: Medical (2) Abnormal x-ray of lower extremity: Comment: Showing diffuse demineralization of the thoracic and lumbar spine Code(s): R93.6 - Abnormal findings on diagnostic imaging of limbs Category: Medical (3) Scoliosis deformity of spine: Comment: S shaped Code(s): M41.9 - Scoliosis, unspecified Category: Medical (4) Sacroiliac joint disease: Code(s): M53.3 - Sacrococcygeal disorders, not elsewhere classified Category: Medical Plan (On course of steroids elevated fecal calprotectin question ongoing tics versus early IBD that may need further testing. However, normal/negative colonoscopy 05/14/2022) He says I give up with the pain. BUT he has not received the budesinide or the creon. 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 He also feels a lot of gas and bubbling in the are of the pain. He continues to utilize dicyclomine so he may have an overlap of more than 1 problem. He continues on Reglan 3 times a day as needed for nausea. He also continues on pantoprazole 40 mg, psyllium husk fiber and simethicone. Given the x-ray findings of diffuse demineralization I think we should get a DEXA scan since this gentleman is only 47 years old! Depending on the response to budesonide we may need to discontinue this as it could contribute to further osteopenia/osteoporosis. ROV 4 weeks. Orders: Orders XR DEXA axial skeleton Today M41.9 - Scoliosis, unspecified, M54.9 - Dorsalgia, unspecified, R93.6 - Abnormal findings on diagnostic imaging of limbs Coding Level of Care Code Est Pt Level 4 (75126) Diagnoses Back pain M54.9 Abnormal x-ray of lower extremity R93.6 Scoliosis deformity of spine M41.9 Sacroiliac joint disease M53.3
[2023-07-12 16:12] VITALS: BP 131/84; PULSE 72
== END 2023-07-12 17:13 | disposition home or self-care (01) ==
PROVIDERS: PCP Internal Medicine; Visit Provider Nurse Practitioner
DX: M54.9 Dorsalgia, unspecified (principal); R93.6 Abnormal findings on diagnostic imaging of limbs; M41.9 Scoliosis, unspecified; M53.3 Sacrococcygeal disorders, not elsewhere classified
CPT/HCPCS: 99214

== ENCOUNTER → 2023-07-12 16:08 | Outpatient (BNVA) | payer OTHER, SELFPAY | PROVIDERS: PCP Internal Medicine; Visit Provider Nurse Practitioner | DX: R10.32 Left lower quadrant pain (principal); M54.9 Dorsalgia, unspecified; R93.6 Abnormal findings on diagnostic imaging of limbs; M41.9 Scoliosis, unspecified; M53.3 Sacrococcygeal disorders, not elsewhere classified | CPT/HCPCS: 99212 ==

== ENCOUNTER 2023-07-16 07:45 | Outpatient (REF) | payer OTHER, SELFPAY ==
[2023-07-16 08:03] LABS: MANUAL DIFF FLAG NO
[2023-07-16 08:29] LABS: Basophils Absolute Auto 0.1 X10*3/uL (0.0-0.2); Basophils Percent Auto 0.9 % (0-2); Eosinophils Absolute Auto 0.1 X10*3/uL (0.0-0.4); Eosinophils Percent Auto 1.1 % (0-4); Hematocrit 43.3 % (42.0-52.0); Hemoglobin 14.5 g/dl (14.0-18.0); Imm Gran Abs Auto 0.05 X10*3/uL (0.00-0.03); Imm Gran Pct Auto 0.9 % (0.0-0.4); Lymphocytes Absolute Auto 1.7 X10*3/uL (1.2-4.9); Lymphocytes Percent Auto 29.7 % (20-40); Mean Corpuscular HGB Conc 33.5 g/dl (31.0-36.0); Mean Corpuscular Hemoglobin 29.8 pg (27.0-33.0); Mean Corpuscular Volume 89.1 fL (80.0-98.0); Mean Platelet Volume 11.1 fL (9.4-12.4); Monocytes Absolute Auto 0.6 X10*3/uL (0.1-1.2); Monocytes Percent Auto 10.1 % (2-11); Neutrophils Absolute Auto 3.2 x10*3/uL (2.0-8.3); Neutrophils Percent Auto 57.3 % (45-73); Platelet Count 203 X10*3/uL (160-400); Red Blood Count 4.86 X10*6/uL (4.60-5.80); Red Cell Distribution Width 12.5 % (11.0-16.0); White Blood Count 5.6 X10*3/uL (4.8-10.8)
[2023-07-16 09:06] LABS: Alanine Aminotransferase 25 U/L (0-40); Albumin Level 4.1 g/dL (3.5-5.0); Alkaline Phosphatase 102 U/L (39-117); Anion Gap 13 (12-20); Aspartate Amino Transferase 22 U/L (5-37); Bilirubin Total 0.4 mg/dL (0.0-1.0); Blood Urea Nitrogen 16 mg/dL (9-16); Calcium 9.6 mg/dL (8.4-10.2); Carbon Dioxide 25 mmol/L (22-29); Chloride 108 mmol/L (96-108); Estimated Glomerular Filt Rate > 60; Glucose Random 86 mg/dL (60-115); Potassium 4.1 mmol/L (3.3-5.1); Sodium 142 mmol/L (135-145); Total Protein 7.4 g/dL (6.5-8.0)
[2023-07-16 09:27] LABS: HIV AB/AG Nonreactive (Nonreactive); HIV Num 1 0.06 S/CO (0.00-0.99)
[2023-07-16 09:31] LABS: TSH reflex Free T4 0.76 uIU/mL (0.32-4.0); Vitamin D 25-OH Total 40.8 ng/mL (>30)
[2023-07-16 09:45] LABS: Folate 10.5 ng/mL (> or = 4.0); Vitamin B12 512 pg/mL (200-900)
[2023-07-20 08:33] LABS: HCV Log PCR <1.18 NOT DETECTED Log IU/mL (NOT DETECTED); HepC Viral Load <15 NOT DETECTED IU/mL (NOT DETECTED)
[2023-07-21 14:58] LABS: Testosterone, Free 88.8 pg/mL (35.0-155.0); Testosterone, Total 584 ng/dL (250-1100)
== END 2023-07-16 07:46 | disposition home or self-care (01) ==
LOC: HO.LAB 07:45
PROVIDERS: Nurse Practitioner; PCP Internal Medicine; Visit Provider Internal Medicine
DX: R53.83 Other fatigue (principal); R10.9 Unspecified abdominal pain; N52.8 Other male erectile dysfunction
CPT/HCPCS: 36415; 80053; 82306; 82607; 82746; 84402; 84403; 84443; 85025; 87389; 87522

== ENCOUNTER 2023-08-04 13:23 | Outpatient (REF) | payer OTHER, SELFPAY ==
--- NOTE | ~2023-08-04 | MM_ITS ---
EXAMINATION: BONE DENSITOMETRY CLINICAL INDICATION: Abnormal findings on diagnostic imaging of limbs. Bones are diffusely demineralized in the thoracic spine and lumbar spine. COMPARISON: This is the patient's baseline examination. TECHNIQUE: Using a [employer] DXA System (software version: 13.1) manufactured by [employer], dual-energy x-ray absorptiometry was performed of the lumbar spine and left hip. The images are of good technical quality. Based on ISCD (International Society for Clinical Densitometry) standards of reporting, Z-scores instead of T-scores are reported in this male patient younger than age 50. Summary results are attached. FINDINGS: AP SPINE L1-L4: BMD 1.022 g/cm2, T-score -1.6, Z-score -1.7, Z-score within expected range for age. LEFT FEMUR, NECK: BMD 0.864 g/cm2, T-score -1.6, Z-score -1.2, Z-score within expected range for age. LEFT FEMUR, TOTAL: BMD 0.899 g/cm2, T-score -1.4, Z-score -1.2, Z-score within expected range for age. IDENTIFIED RISK FACTORS: None listed. HISTORY OF FRACTURE: None listed. MEDICATIONS: Vitamin D. MM/XR DEXA axial skeleton IMPRESSION: 1. DIAGNOSIS: Based on the lowest Z-score value of -1.7 in the lumbar spine, the patient's bone density is within the expected range for age. 2. 10-YEAR FRACTURE RISK PREDICTION, FRAX: Not performed in this patient outside the age range of 50-90 years. 3. Treatment Recommendations: NOF guidelines recommend consideration for treatment in postmenopausal women and men age 50 and older presenting with the following: -A hip or vertebral (clinical or morphometric) fracture. -T-score less than or equal to -2.5 at the femoral neck or spine after appropriate evaluation to exclude secondary causes. -Low bone mass at the hip or spine and a 10-year fracture probability by FRAX of greater than or equal to 3% for hip fracture or greater than or equal to 20% for major osteoporotic fracture based on the [place] adapted WHO algorithm. 4. Other Recommendations: All treatment decisions require clinical judgment and consideration of individual patient factors, including patient preferences, comorbidities, previous drug use, risk factors not captured in the FRAX model (e.g. frailty, falls, vitamin D deficiency, increased bone turnover, interval significant decline in bone density) and possible under or overestimation of fracture risk by FRAX. FUTURE SCAN RECOMMENDATION: People with diagnosed cases of osteoporosis or at high risk for fracture should have regular bone mineral density tests. For patients eligible for Medicare, routine testing is allowed once every 2 years. The testing frequency can be increased to one year for patients who have rapidly progressing disease, those who are receiving or discontinuing medical therapy to restore bone mass, or have additional risk factors.
== END 2023-08-04 13:24 | disposition home or self-care (01) ==
LOC: HO.MAMMO 13:23
PROVIDERS: PCP Internal Medicine; Visit Provider Nurse Practitioner
DX: Z13.820 Encounter for screening for osteoporosis (principal); R93.6 Abnormal findings on diagnostic imaging of limbs; M41.9 Scoliosis, unspecified; M54.9 Dorsalgia, unspecified
CPT/HCPCS: 77080

== ENCOUNTER 2023-09-28 15:44 | Outpatient (AMB) | payer OTHER, SELFPAY ==
[2023-09-28 15:53] VITALS: BP 140/90; PULSE 75; BMI 30.2
--- NOTE | 2023-09-28 15:53 | A.OFFVIS_ITS ---
Vital Signs 09/28/23 15:53 Height 5 ft 7 in Weight 192 lb 14.472 oz BMI 30.2 BP 140/90 H Blood Pressure Location Rt brachial Position Sitting Pulse 75 Intake Visit Reasons: follow up Cano's esophagus Intake Note: Mu presents to in office follow up of Barett's esophagus and Dexa. CC: Patient states the he continues feeling the same with abdominal discomfort and sometimes pain. Perioperative Assistant Required: No Accompanied by: Self / Same As Patient Allergies No Known Allergies [No Known Allergies*] Allergy (Verified 09/28/23 16:06) HPI HPI follow up Cano's esophagus: Details: Assessment & Plan (1) Back pain: Code(s): M54.9 - Dorsalgia, unspecified Category: Medical (2) Abnormal x-ray of lower extremity: Comment: Showing diffuse demineralization of the thoracic and lumbar spine Code(s): R93.6 - Abnormal findings on diagnostic imaging of limbs Category: Medical (3) Scoliosis deformity of spine: Comment: S shaped Code(s): M41.9 - Scoliosis, unspecified Category: Medical (4) Sacroiliac joint disease: Code(s): M53.3 - Sacrococcygeal disorders, not elsewhere classified Category: Medical Plan (On course of steroids elevated fecal calprotectin question ongoing tics versus early IBD that may need further testing. However, normal/negative colonoscopy 05/14/2022) He says I give up with the pain. BUT he has not received the budesinide or the creon. 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 He also feels a lot of gas and bubbling in the are of the pain. He continues to utilize dicyclomine so he may have an overlap of more than 1 problem. He continues on Reglan 3 times a day as needed for nausea. He also c ontinues on pantoprazole 40 mg, psyllium husk fiber and simethicone. Given the x-ray findings of diffuse demineralization I think we should get a DEXA scan since this gentleman is only 47 years old! Depending on the response to budesonide we may need to discontinue this as it could contribute to further osteopenia/osteoporosis. ROV 4 weeks. Orders: Orders XR DEXA axial skeleton Today M41.9 - Scoliosis, unspecified, M54.9 - Dorsalgia, unspecified, R93.6 - Abnormal findings on diagnostic imaging of limbs DEXA SCAN FINDINGS: AP SPINE L1-L4: BMD 1.022 g/cm2, T-score -1.6, Z-score -1.7, Z-score within expected range for age. LEFT FEMUR, NECK: BMD 0.864 g/cm2, T-score -1.6, Z-score -1.2, Z-score within expected range for age. LEFT FEMUR, TOTAL: BMD 0.899 g/cm2, T-score -1.4, Z-score -1.2, Z-score within expected range for age. IDENTIFIED RISK FACTORS: None listed. HISTORY OF FRACTURE: None listed. MEDICATIONS: Vitamin D. MM/XR DEXA axial skeleton IMPRESSION: 1. DIAGNOSIS: Based on the lowest Z-score value of -1.7 in the lumbar spine, the patient's bone density is within the expected range for age. TODAY'S VISIT (On course of steroids elevated fecal calprotectin question ongoing tics versus early IBD that may need further testing. However, normal/negative colonoscopy 05/14/2022) He was unable to pharmacy picking tech the Creon and the budesonide due to peterson. It was something like 60 dollars for 1 and 100 for the other and he is not sure which was which. He continues to have left lower quadrant pain it is somewhat less at night but he attributes this the fact he is taking the dicyclomine at night. 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 His DEXA scan is fine so I do not think we have to be overly worried about steroids. However, given the really uncertain findings with no strong clinical suspicion for IBD I think we should try something different. I am going to try him on a course of doxycycline for 14 days that she since this is an antibiotic that could cover some of the more unusual microorganisms and also it has a some what anti-inflammatory affect. (As a reminder all of these symptoms started after he was diagnosed with a Campylobacter infection after vacation in the [facility]). His bowels are mostly normal informed except when he has the pain severely and then they will be like brown oak colored. His nausea is fairly controlled but of course he continues on the metoclopramide. Return office visit in 6 weeks. [facility] Medical History (Updated 09/28/23 @ 16:10 by MUKESH Foster) Campylobacter enteritis IBS (irritable bowel syndrome) GERD (gastroesophageal reflux disease) Fatty liver HTN (hypertension) Surgical History History of cystoscopy History of facial surgery Hx of colonoscopy History of esophagogastroduodenoscopy (EGD) Family History Father No problems noted. Mother No problems noted. Brother No problems noted. Sister No problems noted. 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 Review of Systems Const Denies fatigue, Denies fever(s), Denies night sweats, Denies poor appetite and Denies weight loss ENT Reports Normal hearing present, Denies dental pain, Denies dysphagia, Denies hearing loss, Denies mouth pain, Denies odynophagia, Denies throat swelling, Denies tongue swelling and Reports other (Dentition adequate) Card Reports no additional complaints Resp Reports no additional complaints GI Details: Reports abdominal pain, Denies melena, Denies bloating, Denies hematochezia, Denies constipation, Denies GI cramping, Denies dysphagia, Denies excessive flatus, Denies early satiety, Denies heartburn, Denies diarrhea, Reports loose stools, Denies nausea, Denies odynophagia, Denies vomiting and Denies hematemesis Skin/Breast Denies pruritus, Denies lesions, Denies rash and Denies jaundice Neuro Reports Normal hearing present and Denies Abnormal speech present Endo Denies fatigue Aller/Immun Denies throat swelling and Denies tongue swelling Physical Exam Vital Signs: Last Vital Signs Pulse 75 09/28/23 15:53 BP 140/90 H 09/28/23 15:53 BMI result Body Mass Index 30.2 Const General: cooperative, no acute distress, well developed and well groomed Nutritional Appearance: well nourished and obese Orientation/consciousness: oriented to person, oriented to place and oriented to time Limitations: No language barrier HEENT Head: Yes normocephalic and Yes atraumatic Eyes General: appearance normal, both eyes and all related structures Pupils: Equal, round and reactive pupils present Neck Neck: Yes normal visual inspection and Yes no lymphadenopathy Thyroid: Thyroid normal Resp Effort & Inspection: normal respiratory effort and able to speak in complete sentences Auscultation: clear to auscultation bilaterally Cardio Rate: regular rate Rhythm: regular rhythm Heart sounds: Normal, physiologic split S2 sound present Peripheral pulses: radial pulses present and posterior tibial pulses present GI Inspection: No distended, No Abdominal panniculus present and Yes obesity Palpation (GI): Soft to palpation, nontender, no guarding, not rigid and No hepatosplenomegaly present Percussion: Yes normal to percussion Auscultation: normal bowel sounds Rectal Exam - Male: Yes deferred Skin General skin exam: no rashes or lesions noted, turgor normal, skin not dry, no jaundice, No spider nevi and no striae Rashes: no rashes Nails: normal Neuro General: oriented to person, oriented to place and oriented to time Cranial nerves: Yes Equal, round and reactive pupils present and Yes Normal hearing present Speech: No Abnormal speech present Extrem General: Yes normal to inspection, No clubbing, No cyanosis and No edema Psych Appearance: grossly normal and well kempt Mental Status: mental status grossly normal Speech and movement: Normal speech and movement present Affect: normal affect Attitude: cooperative Thought process: Normal thought process present and not confabulating Thought content: Normal thought content present Insight: Fair insight present (Psych) and Limited insight present (Psych) Judgement: Fair judgement present (Psych) and Limited judgement present (Psych) Assessment & Plan Assessment & Plan (1) GERD (gastroesophageal reflux disease): Code(s): K21.9 - Gastro-esophageal reflux disease without esophagitis Category: Medical (2) Cano's esophagus determined by endoscopy: Comment: diagnosed on EGD in 2019 Code(s): K22.70 - Cano's esophagus without dysplasia Category: Medical (3) Diverticulitis: Comment: ? vs IBD Code(s): K57.92 - Diverticulitis of intestine, part unspecified, without perforation or abscess without bleeding Category: Medical (4) IBS (irritable bowel syndrome): Code(s): K58.9 - Irritable bowel syndrome without diarrhea Category: Medical Plan (On course of steroids elevated fecal calprotectin question ongoing tics versus early IBD that may need further testing. However, normal/negative colonoscopy 05/14/2022) He was unable to pharmacy picking tech the Creon and the budesonide due to peterson. It was something like 60 dollars for 1 and 100 for the other and he is not sure which was which. He continues to have left lower quadrant pain it is somewhat less at night but he attributes this the fact he is taking the dicyclomine at night. 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 His DEXA scan is fine so I do not think we have to be overly worried about steroids. However, given the really uncertain findings with no strong clinical suspicion for IBD I think we should try something different. I am going to try him on a course of doxycycline for 14 days that she since this is an antibiotic that could cover some of the more unusual microorganisms and also it has a somewhat anti-inflammatory affect. (As a reminder all of these symptoms started after he was diagnosed with a Campylobacter infection after vacation in the [facility]). His bowels are mostly normal informed except when he has the pain severely and t hen they will be like brown oak colored. His nausea is fairly controlled but of course he continues on the metoclopramide. Return office visit in 6 weeks. Medications: New doxycycline hyclate 100 mg PO BID 28 tabs 0RF 14 days K57.92 - Diverticulitis of intestine, part unspecified, without perforation or abscess without bleeding On Hold budesonide DR-ER Hold Comment: insurance too $$ 9 mg PO QAM 30 ea 3RF K57.92 - Diverticulit is of intestine, part unspecified, without perforation or abscess without bleeding [id number] 36,000-114,000- 180,000 unit (Creon) Hold Comment: inurance too $ 2 caps PO BID 120 caps 6RF K58.9 - Irritable bowel syndrome without diarrhea Coding Level of Care Code Est Pt Level 3 (02488) Diagnoses GERD (gastroesophageal reflux disease) K21.9 Cano's esophagus determined by endoscopy K22.70 Diverticulitis K57.92 IBS (irritable bowel syndrome) K58.9
== END 2023-09-28 16:53 | disposition home or self-care (01) ==
PROVIDERS: PCP Internal Medicine; Visit Provider Nurse Practitioner
DX: K21.9 Gastro-esophageal reflux disease without esophagitis (principal); K22.70 Barrett's esophagus without dysplasia; K57.92 Diverticulitis of intestine, part unspecified, without perforation or abscess without bleeding; K58.9 Irritable bowel syndrome, unspecified
CPT/HCPCS: 99213

== ENCOUNTER → 2023-09-28 15:44 | Outpatient (BNVA) | payer OTHER, SELFPAY | PROVIDERS: PCP Internal Medicine; Visit Provider Nurse Practitioner | DX: K22.70 Barrett's esophagus without dysplasia (principal); K21.9 Gastro-esophageal reflux disease without esophagitis; K57.92 Diverticulitis of intestine, part unspecified, without perforation or abscess without bleeding; K58.9 Irritable bowel syndrome, unspecified | CPT/HCPCS: 99212 ==

== ENCOUNTER → 2024-01-19 16:15 | Outpatient (BNVA) | payer OTHER, SELFPAY | PROVIDERS: PCP Internal Medicine; Visit Provider Nurse Practitioner | DX: K21.9 Gastro-esophageal reflux disease without esophagitis (principal); K58.9 Irritable bowel syndrome, unspecified; R13.10 Dysphagia, unspecified | CPT/HCPCS: 99212 ==

== ENCOUNTER → 2024-01-19 16:15 | Outpatient (AMB) | payer OTHER, SELFPAY ==
[2024-01-19 16:25] VITALS: BP 133/84; PULSE 75; BMI 30.2
--- NOTE | 2024-01-19 16:25 | MHC.OFFVIS ---
Vital Signs 01/19/24 16:25 Height 5 ft 7 in Weight 192 lb 10.944 oz BMI 30.2 BP 133/84 Blood Pressure Location Rt brachial Position Sitting Pulse 75 Intake Visit Reasons: f/u 6 weeks Intake Note: Mu presents to in office follow up of Barett's esophagus CC: Patient states reports that he continues to have LLQ abdominal, and nausea. Rn Plasma Center Required: No Accompanied by: Self / Same As Patient Allergies No Known Allergies [No Known Allergies*] Allergy (Verified 01/19/24 16:34) HPI HPI f/u 6 weeks: Details: Assessment & Plan (1) GERD (gastroesophageal reflux disease): Code(s): K21.9 - Gastro-esophageal reflux disease without esophagitis Category: Medical (2) Cano's esophagus determined by endoscopy: Comment: diagnosed on EGD in 2019 Code(s): K22.70 - Cano's esophagus without dysplasia Category: Medical (3) Diverticulitis: Comment: ? vs IBD Code(s): K57.92 - Diverticulitis of intestine, part unspecified, without perforation or abscess without bleeding Category: Medical (4) IBS (irritable bowel syndrome): Code(s): K58.9 - Irritable bowel syndrome without diarrhea Category: Medical Plan (On course of steroids elevated fecal calprotectin question ongoing tics versus early IBD that may need further testing. 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 It was something like 60 dollars for 1 and 100 for the other and he is not sure which was which. He continues to have left lower quadrant pain it is somewhat less at night but he attributes this the fact he is taking the dicyclomine at night. 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 His DEXA scan is fine so I do not think we have to be overly worried about steroids. However, given the really uncertain findings with no strong clinical suspicion for IBD I think we should try something different. I am going to try him on a course of doxycycline for 14 days that she since this is an antibiotic that could cover some of the more unusual microorganisms and also it has a somewhat anti-inflammatory affect. (As a reminder all of these symptoms started after he was diagnosed with a Campylobacter infection after vacation in the [facility]). His bowels are mostly normal informed except when he has the pain severely and then they will be like brown oak colored. His nausea is fairly controlled but of course he continues on the metoclopramide. Return office visit in 6 weeks. Medications: New doxycycline hyclate 100 mg PO BID 28 tabs 0RF 14 days K57.92 - Diverticulitis of intestine, part unspecified, without perforation or abscess without bleeding On Hold budesonide DR-ER Hold Comment: insurance too $$ 9 mg PO QAM 30 ea 3RF K57.92 - Diverticulitis of intestine, part unspecified, without perforation or abscess without bleeding [id number] 36,000-114,000- 180,000 unit (Creon) Hold Comment: inurance too $ 2 caps PO BID 120 caps 6RF K58.9 - Irritable bowel syndrome without diarrhea TODAY'S VISIT He continues to have LLQ pain that is mostly worse with movement and laying on his stomach; but he will feel some relief when he moves his bowels. 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 Will start trial of nortriptyline 10mg qhs. He is being shorted his pantoprazole at his pharmacy!! He continues on his reglan for his nausea. ROV 8 weeks. [facility] Medical History (Updated 09/28/23 @ 16:10 by MUKESH Foster) Campylobacter enteritis IBS (irritable bowel syndrome) GERD (gastroesophageal reflux disease) Fatty liver HTN (hypertension) Surgical History History of cystoscopy History of facial surgery Hx of colonoscopy History of esophagogastroduodenoscopy (EGD) Family History Father No problems noted. Mother No problems noted. Brother No problems noted. Sister No problems noted. 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 Review of Systems Const Denies fatigue, Denies fever(s), Denies night sweats, Denies poor appetite and Denies weight loss ENT Reports Normal hearing present, Denies dental pain, Denies dysphagia, Denies hearing loss, Denies mouth pain, Denies odynophagia, Denies throat swelling, Denies tongue swelling and Reports other (Dentition adequate) Card Reports no additional complaints Resp Reports no additional complaints GI Details: Reports abdominal pain, Denies melena, Denies bloating, Denies hematochezia, Denies constipation, Reports GI cramping, Denies dysphagia, Denies excessive flatus, Denies early satiety, Reports heartburn, Denies diarrhea, Reports nausea, Denies odynophagia, Denies vomiting and Denies hematemesis Skin/Breast Denies pruritus, Denies lesions, Denies rash and Denies jaundice Neuro Reports Normal hearing present and Denies Abnormal speech present Endo Denies fatigue Aller/Immun Denies throat swelling and Denies tongue swelling Physical Exam Vital Signs: BMI result Body Mass Index 30.2 Const General: cooperative, no acute distress, well developed and well groomed Nutritional Appearance: well nourished and obese Orientation/consciousness: oriented to person, oriented to place and oriented to time Limitations: No language barrier HEENT Head: Yes normocephalic and Yes atraumatic Eyes General: appearance normal, both eyes and all related structures Pupils: Equal, round and reactive pupils present Neck Neck: Yes normal visual inspection and Yes no lymphadenopathy Thyroid: Thyroid normal Resp Effort & Inspection: normal respiratory effort and able to speak in complete sentences Auscultation: clear to auscultation bilaterally Cardio Rate: regular rate Rhythm: regular rhythm Heart sounds: Normal, physiologic split S2 sound present Peripheral pulses: radial pulses present and posterior tibial pulses present GI Inspection: No distended, No Abdominal panniculus present and Yes obesity Palpation (GI): Soft to palpation, nontender, no guarding, not rigid and No hepatosplenomegaly present Percussion: Yes normal to percussion Auscultation: normal bowel sounds Rectal Exam - Male: Yes deferred Skin General skin exam: no rashes or lesions noted, turgor normal, skin not dry, no jaundice, No spider nevi and no striae Rashes: no rashes Nails: normal Neuro General: oriented to person, oriented to place and oriented to time Cranial nerves: Yes Equal, round and reactive pupils present and Yes Normal hearing present Speech: No Abnormal speech present Extrem General: Yes normal to inspection, No clubbing, No cyanosis and No edema Psych Appearance: grossly normal and well kempt Mental Status: mental status grossly normal Speech and movement: Normal speech and movement present Affect: normal affect Attitude: cooperative Thought process: Normal thought process present and not confabulating Thought content: Normal thought content present Insight: Limited insight present (Psych) Judgement: Limited judgement present (Psych) Assessment & Plan Assessment & Plan (1) GERD (gastroesophageal reflux disease): Code(s): K21.9 - Gastro-esophageal reflux disease without esophagitis Category: Medical (2) IBS (irritable bowel syndrome): Code(s): K58.9 - Irritable bowel syndrome, unspecified Category: Medical (3) Esophageal dysphagia: Code(s): R13.10 - Dysphagia, unspecified Category: Medical Plan He continues to have LLQ pain that is mostly worse with movement and laying on his stomach; but he will feel some relief when he moves his bowels. 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 Will start trial of nortriptyline 10mg qhs. He is being shorted his pantoprazole at his pharmacy!! He continues on his reglan for his nausea. ROV 8 weeks. Medications: New nortriptyline 10 mg PO BEDTIME 30 caps 6RF K58.9 - Irritable bowel syndrome, unspecified Refilled metoclopramide HCl (Reglan) 5 mg PO .T.I.D. A.C. 60 tabs 6RF nausea and vomiting R11.2 - Nausea with vomiting, unspecified simethicone after meals 180 mg PO QID 30 days 120 caps 3RF pantoprazole 40 mg PO BEDTIME 30 tabs 6RF K21.9 - Gastro-esophageal reflux disease without esophagitis Patient Instructions: January 19, 2024 To, [facility] [employer] [facility] RE: Mu Hennessy Amb1973 Dear Shannan/: Please excuse the above employee from work on 02/10 2024, 02/13/2024 and 02/14/2024 due to an ongoing illness that we are treating. He should be able to return to work 02/15/2024. Thank you for your consideration, MUKESH Tapia [facility] [address] [place] [id number] , Coding Level of Care Code Est Pt Level 3 (03125) Diagnoses GERD (gastroesophageal reflux disease) K21.9 IBS (irritable bowel syndrome) K58.9 Esophageal dysphagia R13.10
== END ==
PROVIDERS: PCP Internal Medicine; Visit Provider Nurse Practitioner
DX: K21.9 Gastro-esophageal reflux disease without esophagitis (principal); K58.9 Irritable bowel syndrome, unspecified; R13.10 Dysphagia, unspecified
CPT/HCPCS: 99213

== ENCOUNTER 2024-05-17 16:02 | Outpatient (AMB) | payer OTHER, SELFPAY ==
--- NOTE | 2024-05-17 16:05 | A.OFFVIS_ITS ---
Vital Signs 05/17/24 16:11 Height 5 ft 7 in Weight 191 lb 12.835 oz BMI 30.0 BP 137/79 Blood Pressure Location Rt brachial Position Sitting Pulse 69 Intake Visit Reasons: 6 wk Intake Note: Patient in office today in follow up of abdominal pain. CC: Patient states that he d/c the nortriptiline because it was causing lower abdominal pain. He continues to c/o LLQ abd pain, he describes pain as if he had a lump in there. Radio Division Officer Required: No Accompanied by: Self / Same As Patient Allergies No Known Allergies [No Known Allergies*] Allergy (Verified 05/17/24 16:12) HPI HPI 6 wk: Details: Assessment & Plan (1) GERD (gastroesophageal reflux disease): Code(s): K21.9 - Gastro-esophageal reflux disease without esophagitis Category: Medical (2) IBS (irritable bowel syndrome): Code(s): K58.9 - Irritable bowel syndrome, unspecified Category: Medical (3) Esophageal dysphagia: Code(s): R13.10 - Dysphagia, unspecified Category: Medical Plan He continues to have LLQ pain that is mostly worse with movement and laying on his stomach; but he will feel some relief when he moves his bowels. 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 Will start trial of nortriptyline 10mg qhs. He is being shorted his pantoprazole at his pharmacy!! He continues on his reglan for his nausea. ROV 8 weeks. Medications: New nortriptyline 10 mg PO BEDTIME 30 caps 6RF K58.9 - Irritable bowel syndrome, unspecified Refilled metoclopramide HCl (Reglan) 5 mg PO .T.I.D. A.C. 60 tabs 6RF nausea and vomiting R11.2 - Nausea with vomiting, unspecified simethicone after meals 180 mg PO QID 30 days 120 caps 3RF pantoprazole 40 mg PO BEDTIME 30 tabs 6RF K21.9 - Gastro-esophageal reflux disease without esophagitis TODAY'S VISIT (On course of steroids elevated fecal calprotectin question ongoing tics versus early IBD that may need further testing. However, normal/negative colonoscopy 05/14/2022) His GI regimen consists of pantoprazole, simethicone and reglan 5mg tid. I added a trial of nortriptyline. Unfortunately, the nortriptyline caused him suprapubic area abdominal pain which might be due to the anticholinergic affects on his bladder. He gets good relief with the dicyclomine but he does not like the way it feels because it makes him feel like he is in ?slow motion. ? I do not believe we ever tried hyoscyamine so we will put this next in the trial. We also discussed ib guard since there is quite a lot of science evidence proving that peppermint oil is a great antispasmodic and that is certainly would not pose the problem of making him sleepy for his driving. It is also possible that this is referred pain as he has significant L5-S1 degenerative disc disease and significant sacral iliac disease. However, I can not recreate this pain with the back and SI joint exam and it does not seem like it should be relieved with Bentyl if it was not in fact bowel related. Return office visit next available [facility] Medical History (Updated 05/17/24 @ 16:06 by MUKESH Foster) Back pain Colon cancer screening E coli enteritis Acute diarrhea Campylobacter enteritis IBS (irritable bowel syndrome) GERD (gastroesophageal reflux disease) Fatty liver HTN (hypertension) Surgical History History of cystoscopy History of facial surgery Hx of colonoscopy History of esophagogastroduodenoscopy (EGD) Family History Father No problems noted. Mother No problems noted. Brother No problems noted. Sister No problems noted. 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 Review of Systems Const Denies fatigue, Denies fever(s), Denies night sweats, Denies poor appetite and Denies weight loss ENT Reports Normal hearing present, Denies dental pain, Denies dysphagia, Denies hearing loss, Denies mouth pain, Denies odynophagia, Denies throat swelling, Denies tongue swelling and Reports other (Dentition adequate) Card Reports no additional complaints Resp Reports no additional complaints GI Details: Reports abdominal pain, Denies melena, Denies bloating, Denies hematochezia, Denies constipation, Denies GI cramping, Denies dysphagia, Denies excessive flatus, Denies early satiety, Reports heartburn, Denies diarrhea, Reports nausea, Denies odynophagia, Denies vomiting and Denies hematemesis Details: Suprapubic pain and urinary difficulties Skin/Breast Denies pruritus, Denies lesions, Denies rash and Denies jaundice Neuro Reports Normal hearing present and Denies Abnormal speech present Endo Denies fatigue Aller/Immun Denies throat swelling and Denies tongue swelling Physical Exam Const General: cooperative, no acute distress, well developed and well groomed Nutritional Appearance: well nourished and overweight Orientation/consciousness: oriented to person, oriented to place and oriented to time Limitations: No language barrier HEENT Head: Yes normocephalic and Yes atraumatic Eyes General: appearance normal, both eyes and all related structures Pupils: Equal, round and reactive pupils present Neck Neck: Yes normal visual inspection and Yes no lymphadenopathy Thyroid: Thyroid normal Resp Effort & Inspection: normal respiratory effort and able to speak in complete sentences Auscultation: clear to auscultation bilaterally Cardio Rate: regular rate Rhythm: regular rhythm Heart sounds: Normal, physiologic split S2 sound present Peripheral pulses: radial pulses present and posterior tibial pulses present GI Inspection: No distended, No Abdominal panniculus present and Yes obesity Palpation (GI): Soft to palpation, Tenderness to palpation present (GI) in the LLQ, no guarding, not rigid and No hepatosplenomegaly present Percussion: Yes normal to percussion Auscultation: normal bowel sounds Rectal Exam - Male: Yes deferred General: Yes no CVA tenderness Back/Spine/Pelvis Back: no CVA tenderness Thoracic/Lumbar Spine: No paraspinal muscle tenderness and No lumbar spinal tenderness Pelvis: no pain with anterior-posterior compression Sacroiliac joints: bilaterally nontender Skin General skin exam: no rashes or lesions noted, turgor normal, skin not dry, no jaundice, No spider nevi and no striae Rashes: no rashes Nails: normal Neuro General: oriented to person, oriented to place and oriented to time Cranial nerves: Yes Equal, round and reactive pupils present and Yes Normal hearing present Speech: No Abnormal speech present Extrem General: Yes normal to inspection, No clubbing, No cyanosis and No edema Psych Appearance: grossly normal and well kempt Mental Status: mental status grossly normal Speech and movement: Normal speech and movement present Affect: normal affect Attitude: cooperative Thought process: Normal thought process present and not confabulating Thought content: Normal thought content present Insight: Limited insight present (Psych) Judgement: Limited judgement present (Psych) Assessment & Plan Assessment & Plan (1) Left sided abdominal pain: Code(s): R10.9 - Unspecified abdominal pain Category: Medical (2) IBS (irritable bowel syndrome): Code(s): K58.9 - Irritable bowel syndrome, unspecified Category: Medical (3) GERD (gastroesophageal reflux disease): Code(s): K21.9 - Gastro-esophageal reflux disease without esophagitis Category: Medical (4) Cano's esophagus determined by endoscopy: Comment: diagnosed on EGD in 2019 Code(s): K22.70 - Cano's esophagus without dysplasia Category: Medical (5) Nausea and vomiting: Comment: The reason for his continued nausea remains elusive. EGD in 2011 mild gastritis, and after his reaction to the colonoscopy (although likely viral herpes) I am not in a benoit to do another EGD. Gastric emptying study was normal, but he may have intermittent delays due to parasympathetic dysfunction. Code(s): R11.2 - Nausea with vomiting, unspecified Category: Medical Plan (On course of steroids elevated fecal calprotectin question ongoing tics versus early IBD that may need further testing. However, normal/negative colonoscopy 05/14/2022) His GI regimen consists of pantoprazole, simethicone and reglan 5mg tid. I added a trial of nortriptyline. Unfortunately, the nortriptyline caused him suprapubic area abdominal pain which might be due to the anticholinergic affects on his bladder. He gets good relief with the dicyclomine but he does not like the way it feels because it makes him feel like he is in ?slow motion. ? I do not believe we ever tried hyoscyamine so we will put this next in the trial. We also discussed ib guard since there is quite a lot of science evidence proving that peppermint oil is a great antispasmodic and that is certainly would not pose the problem of making him sleepy for his driving. It is also possible that this is referred pain as he has significant L5-S1 degenerative disc disease and significant sacral iliac disease. However, I can not recreate this pain with the back and SI joint exam and it does not seem like it should be relieved with Bentyl if it was not in fact bowel related. Return office visit next available Medications: New hyoscyamine sulfate 0.125 mg PO QID 90 tabs 6RF K58.9 - Irritable bowel syndrome, unspecified Refilled pantoprazole 40 mg PO BEDTIME 30 tabs 6RF K21.9 - Gastro-esophageal reflux disease without esophagitis Discontinued nortriptyline Discontinued Reason: Doctor's Order 10 mg PO BEDTIME 30 caps 6RF K58.9 - Irritable bowel syndrome, unspecified budesonide DR-ER Discontinued Reason: Doctor's Order 9 mg PO QAM 30 ea 3RF K57.92 - Diverticulitis of intestine, part unspecified, without perforation or abscess without bleeding Coding Level of Care Code Est Pt Level 3 (40565) Diagnoses Left sided abdominal pain R10.9 IBS (irritable bowel syndrome) K58.9 GERD (gastroesophageal reflux disease) K21.9 Cano's esophagus determined by endoscopy K22.70 Nausea and vomiting R11.2
[2024-05-17 16:11] VITALS: BP 137/79; PULSE 69
--- OUTSIDE RECORDS SUMMARY | 2024-05-17 17:59 | XMS_ITS | Encounter Summary ---
Author Organization [facility] Address [address] [place] [address] [address] [place] [address] Care Team Providers Care Grader Tender Name Role Phone Sharonda Brooks MD Primary Care Provider [phone] Reason for Visit * Reason Comments Med Refill Encounter Details Date Type Department Care Team (Late Contact Info) Description 03/08/2023 Refill [facility] MEDICINE [address], [place] [phone] Sharonda Brooks MD [address] [place] [address] Essential (primary) hypertension Social History Tobacco Use Types Packs/Day Years Used Date Smoking Tobacco: Never Assessed Sex and Gender Information Value Date Recorded Sex Assigned at Male 12/07/2021 10:21 AM EDT Legal Sex Male 10:21 AM EDT Gender Identity Male 12/07/2021 10:21 AM EDT Sexual Orientation Straight 12/07/2021 10 :21 AM EDT documented as of this encounter Plan of Treatment Upcoming Encounters Date Type Department Care Team (Late Contact Info) Description 07/31/2024 4:00 PM EDT Office Visit [facility] PEDS [address] [place] [address] Sharonda Brooks MD [address] [place] [address] documented as of this encounter Visit Diagnoses Diagnosis Essential (primary) hypertension Unspecified essential hypertension documented in this encounter Care Teams Grader Tender Relationship Specialty Start Date End Date Sharonda Brooks MD [address] [place] [address] PCP - General Internal Medicine 02/07/18 documented as of this encounter
--- OUTSIDE RECORDS SUMMARY | 2024-05-17 17:59 | XMS_ITS | Clinical Summary ---
Author Organization [facility] Address [address] [id number] Care Team Providers Care Linen Grader Name Role Phone Unavailable Primary Care Provider Unavailabl e Allergies No known active allergies Medications * This document contains information received from the source organization and may not represent a complete record from that organization. No known medications Social History Tobacco Use Types Packs/Day Years Used Date Smoking Tobacco: Never Smokeless Tobacco: Never Alcohol Use Standard Drinks/Week Comments Not Asked 0 (1 standard drink = 0.6 oz pur e alcohol) Sex and Gender Information Value Date Recorded Sex Assigned at Not on file Legal Sex Male 2:05 PM EDT Gender Identity Not on file Sexual Orientation Not on file Last Filed Vital Signs Vital Sign Reading Time Taken Comments Blood Pressure 122/88 07/09/2014 3:42 PM EDT Pulse 72 07/03/2015 2:37 PM EDT Temperature - - Respiratory Rate - - Oxygen Saturation - - Inhaled Oxygen Concentration - - Weight 90.7 kg (200 lb) 07/03/2015 2:37 PM EDT Height 171.5 cm (5' 7.5 ) 07/03/2015 2:37 PM EDT Body Mass Index 30.86 07/03/2015 2:37 PM EDT Plan of Treatment Health Maintenance Due Date Last Done Comments Hepatitis C Screening 1973 DTaP/Tdap/Td (1 - Tdap) 08/18/1991 Hep B (1 of 3 - 19+ 3-dose series) 1992 Pneumococcal 50+ years (1 of 1 - PCV) 08/18/2023 Zoster (Shingrix) (1 of 2) 08/18/2023 COVID-19 Vaccine ( - 2023-2 5 season) 2023 Influenza (#1) 2023 HPV Vaccine Aged Out No longer eligi ble based on patient's age to complete this topic Hep A Aged Out No longer eligi ble based on patient's age to complete this topic Hib Aged Out No longer eligi ble based on patient's age to complete this topic Meningococcal ACWY Aged Out No longer eligible based on patient's age to complete this topic
--- OUTSIDE RECORDS SUMMARY | 2024-05-17 17:59 | XMS_ITS | Encounter Summary ---
Author Organization [facility] Address [address] [place] [address] [address] [place] [address] Care Team Providers Care Osteopathic Medicine Teacher Name Role Phone Sharonda Brooks MD Primary Care Provider [phone] Reason for Visit * Reason Comments Med Refill Encounter Details Date Type Department Care Team (Late Contact Info) Description 04/12/2023 Refill [facility] MEDICINE [address] [place], [place] [phone] Sharonda Brooks MD [address] [place] [address] Essential (primary) hypertension Social History Tobacco Use [...] Description 07/31/2024 4:00 PM EDT Office Visit [facility] MED [facility] PEDS [address] [place] [address] Sharonda Brooks MD [address] [place] [address] documented as of this encounter Visit Diagnoses Diagnosis Essential (primary) hypertension Unspecified essential hypertension documented in this encounter Care Teams Osteopathic Medicine Teacher Relationship Specialty Start Date End Date Sharonda Brooks MD [address] [place] [address] PCP - General Internal Medicine 02/07/18 documented as of this encounter
--- OUTSIDE RECORDS SUMMARY | 2024-05-17 17:59 | XMS_ITS | Encounter Summary ---
Author Organization [employer] [facility] Address [address] [facility] 7 [place] [address] Care Team Providers Care Bartender Name Role Phone Sharonda Brooks MD Primary Care Provider Encounter Details Date Type Department Care Team (Late st Contact Info) Description 03/23/2022 Orders Only [facility] MEDICINE [address] [place] [address] Fiordaliza Chavarria LPN Social History Tobacco Use Types Packs/Day Years [...] Encounters Date Type Department Care Team (Late st Contact Info) Description 07/31/2024 4:00 PM EDT Office Visit [facility] CHC MED & PEDS [address] [place] [address] Sharonda Brooks MD [address] [place] [address] documented as of this encounter Procedures Procedure Name Priority Date/Time Associated Diagnosis Comments CBC WITH AUTO DIFFERENTIAL Routine 11/04/2022 4:47 PM EDT C-REACTIVE PROTEIN Routine 11/04/2022 4: 47 PM EDT LIPASE Routine 11/04/2022 4:47 PM EDT AMYLASE Routine 11/04/2022 4:47 PM EDT COMPREHENSIVE METABOLIC PANEL Routine 11/04/2022 4:47 PM EDT C-REACTIVE PROTEIN Routine 09/17/2022 12 :40 PM EDT HEMATOXYLIN AND EOSIN STAIN Routine 05/14/2022 9:08 AM EDT documented in this encounter Results * Amylase (11/04/2022 4:47 PM EDT) Amylase 97 28 - 100 U/L [facility] 11/04/2022 4:47 PM EDT 11/04/2022 4:47 PM EDT Generic External Data Provider LAB BLOOD ORDERAB LES Final Result Performing Organization Address [facility]/ZIP Co de Phone Number [facility] [address] [place] [phone] * Lipase (11/04/2022 4:47 PM EDT) Lipase 47 8 - 78 U/L [facility] 11/04/2022 4:47 PM EDT 11/04/2022 4:47 PM EDT Generic External Data Provider LAB BLOOD ORDERAB LES Final Result Performing Organization Address [facility]/ZIP Co de Phone Number [facility] [address] [place] [phone] * C-reactive Protein (11/04/2022 4:47 PM EDT) C Reactive Protein 0.35 < or = 0.50 mg/dL [facility] 11/04/2022 4:47 PM EDT 11/04/2022 4:47 PM EDT us Generic External Data Provider LAB BLOOD ORDERAB LES Final Result Performing Organization Address City/[facility]/ZIP Co de Phone Number [facility] [address] [place] [address] [phone] * (ABNORMAL) Comprehensive Metabolic Panel (11/04/2022 4:47 PM EDT) Sodium 139 135 - 145 mmol/L [facility] Potassium 4.0 3.3 - 5.1 mmol/L [facility] Chloride 104 96 - 108 mmol/L [facility] Carbon Dioxide 25 22 - 29 mmol/L [facility] Anion Gap 14 12 - 20 [facility] Urea Nitrogen (BUN) 13 9 - 16 mg/dL [facility] Creatinine, Serum 1.06 0.5 - 1.4 mg/dL [facility] Estimated Glomerular Filt Rate >60 [facility] Comment:NOTE: For -Am erican individuals, multiply the result by 1.210.Chronic Kidney Disease: Estimated GFR < 60 mL/min/1.58f6Hdzcyg Kidney Disease: Estimated GFR < 15 mL/min/1.73m2 Glucose 80 60 - 115 mg/dL [facility] Calcium 9.8 8.4 - 10.2 mg/dL [facility] Bilirubin, Total 0.3 0.0 - 1.0 mg/dL [facility] Aspartate Amino Transferase 26 5 - 37 U/L [facility] Alanine Aminotransferase 27 0 - 40 U/L [facility] Total Protein 8.1(H) 6.5 - 8.0 g/dL [facility] Albumin Level 4.4 3.5 - 5.0 g/dL [facility] Alkaline Phosphatase 114 39 - 117 U/L [facility] 11/04/2022 4:47 PM EDT 11/04/2022 4:47 PM EDT [facility] External Provider LAB BLO OD ORDERABLES Final Result [facility] [address] [place] [phone] [phone] * (ABNORMAL) CBC auto differential (11/04/2022 4:47 PM EDT) White Blood Count 8.8 4.8 - 10.8 X10*3/uL [facility] Red Blood Count 5.01 4.60 - 5.80 X10*6/uL [facility] Hemoglobin 15.2 14.0 - 18.0 g/dl [facility] Hematocrit 44.5 42.0 - 52.0 % [facility] Mean Corpuscular Volume 88.8 80.0 - 98.0 fL [facility] Mean Corpuscular Hemoglobin 30.3 27.0 - 33.0 pg [facility] Mean Corpuscular HGB Conc 34.2 31.0 - 36.0 g/dl [facility] Red Cell Distribution Width 12.7 11.0 - 16.0 % [facility] Platelet Count 233 160 - 400 X10*3/uL [facility] Mean Platelet Volume 11.8 9.4 - 12.4 fL [facility] Neutrophils Percent Auto 62.5 45 - 73 % [facility] Imm Gran Pct Auto 0.5(H) 0.0 - 0.4 % [facility] Lymphocytes Percent Auto 25.9 20 - 40 % [facility] Monocytes Percent Auto 9.3 2 - 11 % [facility] Eosinophils Percent Auto 1.0 0 - 4 % [facility] Basophils Percent Auto 0.8 0 - 2 % [facility] NRBC Pct Auto 0.0 0.0 - 0.2 /100WBC [facility] Neutrophils Absolute Auto 5.5 2.0 - 8.3 x10*3/uL [facility] Imm Gran Abs Auto 0.04(H) 0.00 - 0.03 X10*3/uL [facility] Lymphocytes Absolute Auto 2.3 1.2 - 4.9 X10*3/uL [facility] Monocytes Absolute Auto 0.8 0.1 - 1.2 X10*3/uL [facility] Eosinophils Absolute Auto 0.1 0.0 - 0.4 X10*3/uL [facility] Basophils Absolute Auto 0.1 0.0 - 0.2 X10*3/uL [facility] NRBC Abs Auto 0.000 0.0 - 0.012 X10*3/uL [facility] 11/04/2022 4:47 PM EDT 11/04/2022 4:47 PM EDT [facility] External Provider LAB BLO OD ORDERABLES Final Result Performing Organization Address [facility]/ZIP Co de Phone Number [facility] [address] [place] [phone] * C-reactive Protein (09/17/2022 12:40 PM EDT) C Reactive Protein 0.18 < or = 0.50 mg/dL [facility] 09/17/2022 12:4 0 PM EDT 09/17/2022 12:40 PM EDT [facility] External Provider LAB BLO OD ORDERABLES Final Result Performing Organization Address [facility] Co de Phone Number [facility] [address] [place] [phone] * Hematoxylin and Eosin Stain (05/14/2022 9:08 AM EDT) 05/14/2022 9:08 AM EDT 05/14/2022 10:00 AM EDT Narrative [facility] - 05/17/2022 4:07 PM EDT ----- ------- Name: Mu Hennessy ? Age/Sex: 46/M ? : 1975 Unit#: [id number] ?? Attend Dr: Papa Parra MD ?Re05/14/22 ?Status: DEP SDC ? Location: [facility].SS[facility] ?Disch: ? ----- ------- SPEC : [id number] ? RECD: 05/14/22-999 ? STATUS: ??SOUT ? REQ NUM: [id number] ? TERESA: 05/14/22-907 ? SUBM DR: Papa Parra MD ? ENTERED: ??05/14/22-1005 ?SP TYPE: Surgical ? OTHR DR: Sharonda Brooks MD ? ORDERED: ??HE Stain/3, Gross Micro L4/2, IHC, H. pylori ? COMMENTS: Part A: One of the tissue fragments is extremely tiny and ?may be difficult to identify during processing and may fail ?to survive processing. ? Diagnosis ?? A. ??Gastric antrum, biopsy: ??Gastric antrum with mild reactive changes, congestion, focal ?? intestinal metaplasia, and minimal chronic inactive gastritis; negative for H pylori and ?? dysplasia. ? B. ??Esophagogastric junction, biopsy: ??Squamocolumnar mucosa with mild chronic ?? inflammation; negative for intestinal metaplasia and dysplasia. ?Clinical History Pre-Op Dx: ??Follow-up Cano's, screening Post-Op Dx: GERD, hiatal hernia, gastritis, diverticulosis, hemorrhoids ?Microscopic Description Microscopic sections reviewed.? Immunohistochemical stain for H. pylori on A is negative with appropriate control. ? Material Received ?? A: Gastric antral bx's r/o H. pylori ?? B: Distal esophagus r/o Cano's ? Gross Description Received in two parts. Part A: Received in formalin labeled Gastric antral bx's are two glistening, semitranslucent, soft, hyperemic, zee-pink, irregular tissue fragments, measuring minute and 0.3 cm. in greatest dimension, which are submitted in toto in a single cassette labeled A. Part B: Received in formalin labeled Distal esophagus are two glistening, semitranslucent, soft, hyperemic, zee-pink, irregular tissue fragments, each measuring 0.3 cm. in greatest dimension, which are submitted in toto in a single cassette labeled B. KG Special studies ordered and performed: immunostain for H. pylori on A1. ? CONTINUED ON NEXT PAGE ----- ------- Name: Mu Hennessy ? Age/Sex: 46/M ? : 1975 Unit#: [id number] ?? Attend Dr: Papa Prara MD ?Re05/14/22 ?Status: DEP SDC ? Location: HO.SSS ?Disch: ? ----- ------- SPEC : [id number] ? RECD: 05/14/22-1000 ? STATUS: ??SOUT ? REQ NUM: [id number] ? TERESA: 05/14/22 ? SUBM DR: Papa Parra MD ? ENTERED: ??05/14/22-1005 ?SP TYPE: Surgical ? OTHR DR: Sharonda Brooks MD ? ORDERED: ??HE Stain/3, Gross Micro L4/2, IHC, H. pylori ? COMMENTS: Part A: One of the tissue fragments is extremely tiny and ?may be difficult to identify during processing and may fail ?to survive processing. Copies To: ?? Sharonda Brooks MD ?? [address] ?? [place] [address] ? Papa Parra MD ?? [address] [facility] ?? [place] [address] ?? [phone] ----- ------- Signed (signature on file) Yanira Welsh 05/17/221606 ? ----- ------- ? END OF REPORT ? us [facility] External Provider LAB BLO OD ORDERABLES Final Result [facility] [address] [place] [phone] [phone] documented in this encounter Visit Diagnoses Not on filedocumented in this encounter Care Teams Bartender Relationship Specialty Start Date End Date Sharonda Brooks MD [address] [place] [address] PCP - General Internal Medicine 02/07/18 documented as of this encounter
--- OUTSIDE RECORDS SUMMARY | 2024-05-17 17:59 | XMS_ITS | Encounter Summary ---
Author Organization [facility] Address [address] [place] [address] 7 [place] [address] Care Team Providers Care Rn Telephonic Name Role Phone Sharonda Brooks MD Primary Care Provider [phone] Encounter Details Date Type Department Care Team (Late Contact Info) Description 12/07/2022 Abstract [facility] MEDICINE [address] [place] [address] Sharonda Brooks MD [address] [place] [address] Social History Tobacco Use Types Packs/Day Years [...] 4:00 PM EDT Office Visit [facility] CHC MED & PEDS [address] [place] [address] Sharonda Brooks MD [address] [place] [address] documented as of this encounter Procedures Procedure Name Priority Date/Time Associated Diagnosis Comments COLONOSCOPY Routine 08/25/2017 documented in this encounter Results * Colonoscopy (08/25/2017) Colonoscopy Normal Normal Narrative Hanny, Gladis - 08/25/2017 Recommended 5 year follow up due to tubular adenoma us Historical Provider HEALTH MAINTENANCE Final Result documented in this encounter Visit Diagnoses Not on filedocumented in this encounter Care Teams Rn Telephonic Relationship Specialty Start Date End Date Sharonda Brooks MD [address] [place] [phone] PCP - General Internal Medicine 02/07/18 documented as of this encounter
--- OUTSIDE RECORDS SUMMARY | 2024-05-17 17:59 | XMS_ITS | Encounter Summary ---
Author Organization [employer] [facility] Address [address] [place] [address] 7t [place] [address] Care Team Providers Care Aircraft Lay Out Worker Name Role Phone Sharonda Brooks MD Primary Care Provider [phone] Reason for Visit * Reason Comments Med Refill Encounter Details Date Type Department Care Team (Late Contact Info) Description 03/31/2023 Refill [facility] MEDICINE [address] [place], [place] [phone] Sharonda Brooks MD [address] [place] [address] Essential (primary) hypertension Social History Tobacco Use [...] Description 07/31/2024 4:00 PM EDT Office Visit [facility] CHC MED & PEDS [address] [place] [address] Sharonda Brooks MD [address] [place] [address] documented as of this encounter Visit Diagnoses Diagnosis Essential (primary) hypertension Unspecified essential hypertension documented in this encounter Care Teams Aircraft Lay Out Worker Relationship Specialty Start Date End Date Sharonda Brooks MD [address] [place] [address] PCP - General Internal Medicine 02/07/18 documented as of this encounter
--- OUTSIDE RECORDS SUMMARY | 2024-05-17 17:59 | XMS_ITS | Clinical Summary ---
Author Organization [employer] Address [address] [facility] 7t [place] [address] Care Team Providers Care Finance Controller Name Role Phone Sharonda Brokos MD Primary Care Provider [phone] Allergies No known active allergies Medications lisinopril 10 MG tablet take 1 tablet by oral route every day 2 Active pantoprazole (ProtoNix) 40 MG EC tablet 4 Active metoclopramide (Reglan) 5 MG tablet TAKE ONE TABLET THREE TIMES DAILY BEFORE MEALS FOR NAUSEA AND VOMITING 4 Active dicyclomine (Bentyl) 20 MG tablet TAKE ONE TABLET FOUR TIMES DAILY Active cholecalciferol (Vitamin D-3) 25 MCG tablet TAKE ONE TABLET EVERY MORNING 90 tablet 1 4 Active NIFEdipine CC (Adalat CC) 30 MG 24 hr tabletIndications :Essential (primary) hypertension TAKE ONE TABLET EVERY MORNING 90 tablet 1 4 Active lisinopril 10 MG tabletIndications :Essential (primary) hypertension TAKE ONE TABLET EVERY MORNING 90 tablet 1 5 Active Active Problems Problem Noted Date Diagnosed Date Hypertensive disorder 09/04/2018 Gastroesophageal reflux disease without esophagi tis 06/14/2016 Depressive disorder 11/19/2011 Erectile dysfunction 11/19/2011 Gastritis 11/19/2011 Hiatal hernia 11/19/2011 Encounters Date Type Department Care Team Description 04/26/2024 4:00 PM EDT Office Visit [facility] MED & PEDS [address] [place] [address] Sharonda Brooks MD Primary hypertension (Primary Dx); Dietary counseling; Exercise counseling; Overweight; Encounter for immunization 04/26/2024 Travel 04/25/2024 Telephone [facility] MED & PEDS [address] [place] [address] Sharonda Brooks MD Chart Prep 04/12/2024 Refill [facility] MED & PEDS [address] [place] [address] Sharonda Brooks MD Essential (primary) hypertension from Last 3 Months Immunizations Name Administration Dates Next Due Hep B, adult 04/26/2024 MMR 07/28/2017,06/28/2017 Pneumococcal Conjugate PCV 20 04/26/2024 Tdap 08/25/2016 Family History Medical History Relation Name Comments Stroke Father Diabetes Mother Hypertension Mother Relation Name Status Comments Father Mother Social History Tobacco Use Types Packs/Day Years Used Date Smoking Tobacco: Never Smokeless Tobacco: Never Tobacco Cessation:Counseling Given: No Alcohol Use Standard Drinks/Week Comments Defer 0 (1 standard drink = 0.6 oz pur e alcohol) Alcohol Answer Date Recorded Q1: How often do you have a drink containing alc ohol? 2 04/26/2024 Q2: How many drinks containi ng alcohol do you have on a typical day when you are drinking? 0 04/26/2024 Q3: How often do you have six or more drinks on one occasion? 2 04/26/2024 Depression Answer Date Recorded Patient Health Questionnaire-9 Score 6 06/23/2023 Patient Health Questionnaire-9 Score 6 06/23/2023 Last PHQ-9: Questionnaire Data Not on file 0 06/23/2023 Housing Stability Answer Date Recorded What is your housing situation today? I have ramiro blackwell 05/03/[address] you li ve. Do you have problems with any of the following? None of the above 05/03/2023 Food Insecurity Answer Date Recorded Within the past 12 months, y ou worried that your food would run out before you got money to buy more: Never True 05/03/2023 Within the past 12 months,th e food you bought just didn't last and you didn't have enough money to get more: Never True Transportation Answer Date Recorded In the past 12 months, has l ack of transportation kept you from medical appts, meetings, work or from getting things needed for daily living? No 05/03/2023 Utilities Answer Date Recorded In the past 12 months, has t he electric, gas, oil or water company threatened to shut off services in your home? No 05/03/2023 Depression Answer Date Recorded Patient Health Questionnaire-2 Score 0 06/23/2023 Sex and Gender Information Value Date Recorded Sex Assigned at Male 12/07/2021 10:21 AM EDT Legal Sex Male 10:21 AM EDT Gender Identity Male 12/07/2021 10:21 AM EDT Sexual Orientation Straight 12/07/2021 10 :21 AM EDT Last Filed Vital Signs Vital Sign Reading Time Taken Comments Blood Pressure 126/79 04/26/2024 4:16 PM EDT Pulse 70 04/26/2024 4:16 PM EDT Temperature 36.7 ??C (98 ??F) 04/26/2024 4:16 PM EDT Respiratory Rate 20 04/26/2024 4:16 PM EDT Oxygen Saturation 99% 04/26/2024 4:16 PM EDT Inhaled Oxygen Concentration - - Weight 86.2 kg (190 lb) 04/26/2024 4:16 PM EDT Height 172.7 cm (5' 8 ) 04/26/2024 4:16 PM EDT Body Mass Index 28.89 04/26/2024 4:16 PM EDT Plan of Treatment Upcoming Encounters Date Type Department Care Team (Late st Contact Info) Description 07/31/2024 4:00 PM EDT Office Visit [facility] MED & PEDS [address] [place] [address] Sharonda Brooks MD [address] [place] [address] Health Maintenance Due Date Last Done Comments CT Colonography 1975 FIT DNA/Cologuard 1975 FIT 1975 FOBT 1975 Sigmoidoscopy 1975 Family Planning (PISQ) 1990 Colonoscopy 08/25/2022 08/25/2017, 08/25/2017 Colorectal Cancer Screening 08/25/2022 Zoster Vaccines (1 of 2) 08/18/2023 SDOH Screening 05/02/2024 05/03/2023 Hepatitis B Vaccines (2 of 3 - 19+ 3-dose series) 05/24/2024 04/26/2024 Depression Screening 06/22/2024 06/23/2023, 06/23/2023 Influenza Vaccine (#1) 2024 Postp oned from 10/09/2023 (Patient Refused) COVID-19 Vaccine (4 - 2023-2 5 season) 2024 02/20/2022, 06/05/2020, 05/15/2020 Postponed from 10/09/2023 (Patient Refused) Alcohol/Substance Use Screening 04/26/2025 04/26/2024 Tobacco Screening 04/26/2025 04/26/2024 Lipid Panel 02/25/2026 02/25/2021, 12/16/2020, 12/16/2020 DTaP/Tdap/Td Vaccines (2 - T d or Tdap) 08/25/2026 08/25/2016 RSV Patients and Patients Aged 60 years or older (1 - 1-dose 75+ series) 2048 HIV Screening Completed 07/16/2023 Hepatitis C Screening Completed 07/16/2023 Pneumococcal Vaccine: 50+ Years Completed 04/26/2024 HIB Vaccines Aged Out No longer eligi ble based on patient's age to complete this topic HPV Vaccines Aged Out No longer eligi ble based on patient's age to complete this topic Hepatitis A Vaccines Aged Out No long er eligible based on patient's age to complete this topic IPV Vaccines Aged Out No longer eligi ble based on patient's age to complete this topic Meningococcal Vaccine Aged Out No jesus hansel eligible based on patient's age to complete this topic RSV under 20 months Aged Out No longe r eligible based on patient's age to complete this topic Rotavirus Vaccines Aged Out No longer eligible based on patient's age to complete this topic Procedures Procedure Name Priority Date/Time Associated Diagnosis Comments HEPATITIS C VIRAL RNA, QUANTITATIVE, REAL-TIME PCR Routine 07/16/2023 8:00 AM EDT Other fatigue HIV 1/2 ANTIGEN/ANTIBODY, FOURTH GENERATION W/RFL Routine 07/16/2023 8:00 AM EDT Other fatigue LIPID PANEL, STANDARD Routine 02/25/2021 9:59 AM EST HM COLONOSCOPY Routine 08/25/2017 from Last 3 Months or Most Recently Relevant to Health Maintenance Results * Hepatitis C Viral RNA, Quantitative, Real-Time PCR (07/16/2023 8:00 AM EDT) Pathologist [facility] Hepatitis C Viral Load <15 NOT DETECTED NOT DETECTED IU/mL [facility] HCV Log PCR <1.18 NOT DETECTED NOT DETECTED Log IU/mL [facility] Comment:For additional infor matnasim, please refer tohttp://education.[employer]/faq/QRY06k3(This link is being provided for informational/educational purposes only.)THIS TEST WAS PERFORMED AT:[employer] [place] [phone] BARCENAS MD Blood Venous blood specimen / Unknown 07/16/2023 8:00 AM EDT 07/16/2023 8:00 AM EDT Sharonda Brooks MD LAB BLOOD ORDERABLES Final Result [facility] [address] [place] [phone] * HIV-1/2 Antigen and Antibodies, Fourth Generation, with Reflexes (07/16/2023 8:00 AM EDT) Pathologist [facility] HIV AB/AG Nonreactive Nonreactive [facility] Comment:HIV-1 p24 Ag and/or HIV-1/HIV-2 Ab not detected.A test result that is nonreactive does not exclude thepossibility of exposure to or infection with HIV-1 and/orHIV-2. Nonreactive results in this assay for individualswith prior exposure to HIV-1 and/or HIV-2 may be due toantigen and antibody levels that are below the limit ofdetection of this assay.The [employer] HIV Ag/Ab Combo assay result andsupplemental assay results should be interpreted inconjunction with the patient's clinical presentation,history and other laboratory results. If the results areinconsistent with clinical evidence, additional testing issuggested to confirm the result. Blood Venous blood specimen / Unknown 07/16/2023 8:00 AM EDT 07/16/2023 8:00 AM EDT us Sharonda Brooks MD LAB BLOOD ORDERABLES Final Result [facility] [address] [place] [phone] * (ABNORMAL) LIPID PANEL, STANDARD (02/25/2021 9:59 AM EST) Chol/HDLC Ratio 6.1(H) <5.0 (calc) [facility] Cholesterol, Total 213(H) <200 mg/dL [facility] HDL Cholesterol 35(L) > OR = 40 mg/dL [facility] LDL Cholesterol 134(H) mg/dL (calc) [facility] Comment: Reference range: <100 ?? Desirable range <100 mg/dL for primary prevention; ?? <70 mg/dL for patients with CHD or diabetic patients ?? with > or = 2 CHD risk factors. ?? LDL-C is now calculated using the Wally-Abad ?? calculation, which is a validated novel method providing ?? better accuracy than the Friedewald equation in the ?? estimation of LDL-C. ?? Wally QUIGLEY et al. RADHA. 2013;310(19): 9360-6615 ?? (http://education.[employer]write.[employer].com/faq/RXF180) Non-HDL Cholesterol 178(H) <130 mg/dL (calc) [facility] Comment: For patients with diabetes plus 1 major ASCVD risk ?? factor, treating to a non-HDL-C goal of <100 mg/dL ?? (LDL-C of <70 mg/dL) is considered a therapeutic ?? option. Triglycerides 285(H) <150 mg/dL [facility] Comment: ?? If a non-fasting specimen was collected, consider repeat triglyceride testing on a fasting specimen if clinically indicated. ?? Eddie et al. J. of Clin. Lipidol. 2015;9:129-169. ?? 02/25/2021 9:59 AM EST Sharonda Brooks MD LAB BLOOD ORDERABLES Final Result [facility] [address] * Colonoscopy (08/25/2017) Colonoscopy Normal Normal Narrative Gladis Gamino - 08/25/2017 Recommended 5 year follow up due to tubular adenoma Historical Provider HEALTH MAINTENANCE Final Result from Last 3 Months or Most Recently Relevant to Health Maintenance Insurance [facility] Care Teams Finance Controller Relationship Specialty Start Date End Date Sharonda Brooks MD [address] [place] [phone] PCP - General Internal Medicine 02/07/18
== END 2024-05-17 16:41 | disposition home or self-care (01) ==
LOC: HO.HGI 16:03
PROVIDERS: PCP Internal Medicine; Visit Provider Nurse Practitioner
DX: R10.9 Unspecified abdominal pain (principal); K58.9 Irritable bowel syndrome, unspecified; K21.9 Gastro-esophageal reflux disease without esophagitis; K22.70 Barrett's esophagus without dysplasia; R11.2 Nausea with vomiting, unspecified
CPT/HCPCS: 99213

== ENCOUNTER → 2024-05-17 16:02 | Outpatient (BNVA) | payer OTHER, SELFPAY | PROVIDERS: PCP Internal Medicine; Visit Provider Nurse Practitioner | DX: K21.9 Gastro-esophageal reflux disease without esophagitis (principal); K58.9 Irritable bowel syndrome, unspecified; R13.10 Dysphagia, unspecified; R10.9 Unspecified abdominal pain; K22.70 Barrett's esophagus without dysplasia; R11.2 Nausea with vomiting, unspecified | CPT/HCPCS: 99212 ==

== ENCOUNTER 2024-07-13 16:04 | Outpatient (AMB) | payer OTHER, SELFPAY ==
[2024-07-13 16:06] VITALS: BP 128/78; PULSE 86; O2SAT 96; BMI 29.8
--- NOTE | 2024-07-13 16:06 | A.OFFVIS_ITS ---
Vital Signs 3 07/13/24 16:06 Height 5 ft 7 in Weight 190 lb BMI 29.8 BP 128/78 Blood Pressure Location Rt brachial Position Sitting Pulse 86 Pulse Source Pulse Oximeter Pulse Oximetry (%) 96 Oxygen Delivery Method Room Air Intake Visit Reasons: gerd Intake Note: Established patient for mgmt of chronic abd pain. CC;Pt denies any new GI sx or concerns at this time. Pt comments that he has been doing OK with the new Rx since last visit. 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 Tender Helper Required: No Accompanied by: Self / Same As Patient Allergies No Known Allergies [No Known Allergies*] Allergy (Verified 07/13/24 16:06) HPI HPI gerd: Details: Assessment & Plan (1) Left sided abdominal pain: Code(s): R10.9 - Unspecified abdominal pain Category: Medical (2) IBS (irritable bowel syndrome): Code(s): K58.9 - Irritable bowel syndrome, unspecified Category: Medical (3) GERD (gastroesophageal reflux disease): Code(s): K21.9 - Gastro-esophageal reflux disease without esophagitis Category: Medical (4) Cano's esophagus determined by endoscopy: Comment: diagnosed on EGD in 2019 Code(s): K22.70 - Cano's esophagus without dysplasia Category: Medical (5) Nausea and vomiting: Comment: The reason for his continued nausea remains elusive. EGD in 2011 mild gastritis, and after his reaction to the colonoscopy (although likely viral herpes) I am not in a benoit to do another EGD. Gastric emptying study was normal, but he may have intermittent delays due to parasympathetic dysfunction. Code(s): R11.2 - Nausea with vomiting, unspecified Category: Medical Plan (On course of steroids elevated fecal calprotectin question ongoing tics versus early IBD that may need further testing. However, normal/negative colonoscopy 05/14/2022) His GI regimen consists of pantoprazole, simethicone and reglan 5mg tid. I added a trial of nortriptyline. Unfortunately, the nortriptyline caused him suprapubic area abdominal pain which might be due to the anticholinergic affects on his bladder. He gets good relief with the dicyclomine but he does not like the way it feels because it makes him feel like he is in ?slow motion. ? I do not believe we ever tried hyoscyamine so we will put this next in the trial. We also discussed ib guard since there is quite a lot of science evidence proving that peppermint oil is a great antispasmodic and that is certainly would not pose the problem of making him sleepy for his driving. It is also possible that this is referred pain as he has significant L5-S1 degenerative disc disease and significant sacral iliac disease. However, I can not recreate this pain with the back and SI joint exam and it does not seem like it should be relieved with Bentyl if it was not in fact bowel related. Return office visit next available Medications: New hyoscyamine sulfate 0.125 mg PO QID 90 tabs 6RF K58.9 - Irritable bowel syndrome, unspecified Refilled pantoprazole 40 mg PO BEDTIME 30 tabs 6RF K21.9 - Gastro-esophageal reflux disease without esophagitis Discontinued nortriptyline Discontinued Reason: Doctor's Order 10 mg PO BEDTIME 30 caps 6RF K58.9 - Irdritable bowel syndrome, unspecified budesonide DR-ER Discontinued Reason: Doctor's Order 9 mg PO QAM 30 ea 3RF K57.92 - Diverticulitis of intestine, part unspecified, without perforation or abscess without bleeding TODAY'S VISIT His GI regimen consists of pantoprazole, simethicone and reglan 5mg tid. He is doing better with the hyoscamine, but is having double vision at times - he is vague about the onset and he says he has an upcoming optometry appt. I ask him to cut back to bid on the hyoscamine and save the 3rd dose for if he has breakthrough pain. He is c/o oral lesions, on PE they look somewhat vesicular, but small and difficult to tell if follicular as are on the lip line. He is using abreva with success. Will get labs to see if HSV vs ordinary cold sores. ROV 3 mos. [facility] Medical History (Updated 07/17/24 @ 09:23 by MUKESH Foster) Oral mucosal lesion Back pain Colon cancer screening E coli enteritis Acute diarrhea Campylobacter enteritis IBS (irritable bowel syndrome) GERD (gastroesophageal reflux disease) Fatty liver HTN (hypertension) Surgical History History of cystoscopy History of facial surgery Hx of colonoscopy History of esophagogastroduodenoscopy (EGD) Family History Father No problems noted. Mother No problems noted. Brother No problems noted. Sister No problems noted. 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 [employer] Review of Systems Const Denies fatigue, Denies fever(s), Denies night sweats, Denies poor appetite and Denies weight loss ENT Reports Normal hearing present, Denies dental pain, Denies dysphagia, Denies hearing loss, Reports mouth lesions, Denies mouth pain, Denies odynophagia, Denies throat swelling, Denies tongue swelling and Reports other (Dentition adequate) Card Reports no additional complaints Resp Reports no additional complaints GI Details: Denies abdominal pain, Denies melena, Denies bloating, Denies hematochezia, Reports constipation, Denies GI cramping, Denies dysphagia, Denies excessive flatus, Denies early satiety, Reports heartburn, Denies diarrhea, Denies nausea, Denies odynophagia, Denies vomiting and Denies hematemesis Skin/Breast Denies pruritus, Reports lesions, Denies rash and Denies jaundice Neuro Reports Normal hearing present and Denies Abnormal speech present Endo Denies fatigue Aller/Immun Denies throat swelling and Denies tongue swelling Physical Exam Vital Signs: Last Vital Signs Pulse 86 07/13/24 16:06 BP 128/78 07/13/24 16:06 Pulse Ox 96 07/13/24 16:06 Oxygen Delivery Method Room Air 07/13/24 16:06 BMI result Body Mass Index 29.8 Const General: cooperative, no acute distress, well developed and well groomed Nutritional Appearance: well nourished and obese Orientation/consciousness: oriented to person, oriented to place and oriented to time Limitations: No language barrier HEENT Head: Yes normocephalic and Yes atraumatic Head images: 2 1. oral lesions demarcation of lip line Eyes General: appearance normal, both eyes and all related structures Pupils: Equal, round and reactive pupils present Neck Neck: Yes normal visual inspection and Yes no lymphadenopathy Thyroid: Thyroid normal Resp Effort & Inspection: normal respiratory effort and able to speak in complete sentences Auscultation: clear to auscultation bilaterally Cardio Rate: regular rate Rhythm: regular rhythm Heart sounds: Normal, physiologic split S2 sound present Peripheral pulses: radial pulses present and posterior tibial pulses present GI Inspection: No distended, No Abdominal panniculus present and Yes obesity Palpation (GI): Soft to palpation, nontender, no guarding, not rigid and No hepatosplenomegaly present Percussion: Yes normal to percussion Auscultation: normal bowel sounds Rectal Exam - Male: Yes deferred Skin General skin exam: no rashes or lesions noted, turgor normal, skin not dry, no jaundice, No spider nevi and no striae Rashes: no rashes Nails: normal Neuro General: oriented to person, oriented to place and oriented to time Cranial nerves: Yes Equal, round and reactive pupils present and Yes Normal hearing present Speech: No Abnormal speech present Extrem General: Yes normal to inspection, No clubbing, No cyanosis and No edema Psych Appearance: grossly normal and well kempt Mental Status: mental status grossly normal Speech and movement: Normal speech and movement present Affect: normal affect Attitude: cooperative Thought process: Normal thought process present and not confabulating Thought content: Normal thought content present Insight: Limited insight present (Psych) Judgement: Limited judgement present (Psych) Assessment & Plan Assessment & Plan (1) Oral mucosal lesion: Code(s): K13.70 - Unspecified lesions of oral mucosa Category: Medical (2) GERD (gastroesophageal reflux disease): Code(s): K21.9 - Gastro-esophageal reflux disease without esophagitis Category: Medical (3) Cano's esophagus determined by endoscopy: Comment: diagnosed on EGD in 2019 Code(s): K22.70 - Cano's esophagus without dysplasia Category: Medical (4) IBS (irritable bowel syndrome): Code(s): K58.9 - Irritable bowel syndrome, unspecified Category: Medical Plan His GI regimen consists of pantoprazole, simethicone and reglan 5mg tid. He is doing better with the hyoscamine, but is having double vision at times - he is vague about the onset and he says he has an upcoming optometry appt. I ask him to cut back to bid on the hyoscamine and save the 3rd dose for if he has breakthrough pain. He is c/o oral lesions, on PE they look somewhat vesicular, but small and difficult to tell if follicular as are on the lip line. He is using abreva with success. Will get labs to see if HSV vs ordinary cold sores. ROV 3 mos. Orders: Orders 2 Herpes Simplex Virus Ab IgG 07/13/24 K13.70 - Unspecified lesions of oral mucosa Herpes Virus Culture 07/13/24 K13.70 - Unspecified lesions of oral mucosa Medications: Discontinued 2 [id number] 36,000-114,000- 180,000 unit administer with meals and/or snacks Discontinued Reason: Doctor's Order 2 caps PO BID 120 caps 6RF K58.9 - Irritable bowel syndrome, unspecified Coding Level of Care Code Est Pt Level 3 (73999) Diagnoses Oral mucosal lesion K13.70 GERD (gastroesophageal reflux disease) K21.9 Cano's esophagus determined by endoscopy K22.70 IBS (irritable bowel syndrome) K58.9
== END 2024-07-13 16:31 | disposition home or self-care (01) ==
LOC: HO.HGI 16:04
PROVIDERS: PCP Internal Medicine; Visit Provider Nurse Practitioner
DX: K13.70 Unspecified lesions of oral mucosa (principal); K21.9 Gastro-esophageal reflux disease without esophagitis; K22.70 Barrett's esophagus without dysplasia; K58.9 Irritable bowel syndrome, unspecified
CPT/HCPCS: 99213

== ENCOUNTER 2024-07-13 16:04 | Outpatient (REF) | payer OTHER, SELFPAY ==
[2024-07-13 16:49] LABS: MANUAL DIFF FLAG NO
[2024-07-13 17:10] LABS: Basophils Absolute Auto 0.1 X10*3/uL (0.0-0.2); Basophils Percent Auto 0.9 % (0-2); Eosinophils Absolute Auto 0.1 X10*3/uL (0.0-0.4); Hematocrit 44.9 % (42.0-52.0); Imm Gran Abs Auto 0.05 X10*3/uL (0.00-0.03); Imm Gran Pct Auto 0.6 % (0.0-0.4); Lymphocytes Absolute Auto 2.2 X10*3/uL (1.2-4.9); Lymphocytes Percent Auto 25.9 % (20-40); Mean Corpuscular HGB Conc 33.4 g/dl (31.0-36.0); Mean Corpuscular Hemoglobin 29.6 pg (27.0-33.0); Mean Corpuscular Volume 88.7 fL (80.0-98.0); Mean Platelet Volume 11.3 fL (9.4-12.4); Monocytes Absolute Auto 0.8 X10*3/uL (0.1-1.2); Monocytes Percent Auto 8.7 % (2-11); Neutrophils Absolute Auto 5.4 x10*3/uL (2.0-8.3); Neutrophils Percent Auto 62.9 % (45-73); Platelet Count 227 X10*3/uL (160-400); Red Blood Count 5.06 X10*6/uL (4.60-5.80); White Blood Count 8.6 X10*3/uL (4.8-10.8)
[2024-07-13 18:10] LABS: Alanine Aminotransferase 30 U/L (0-40); Albumin Level 4.5 g/dL (3.5-5.0); Anion Gap 13 (12-20); Aspartate Amino Transferase 56 U/L (5-37); Bilirubin Total 0.2 mg/dL (0.0-1.0); Blood Urea Nitrogen 19 mg/dL (9-16); Calcium 9.4 mg/dL (8.4-10.2); Carbon Dioxide 26 mmol/L (22-29); Chloride 109 mmol/L (96-108); Cholesterol 210 mg/dL (<200); Estimated Glomerular Filt Rate 47; Glucose Random 99 mg/dL (60-115); HDL Cholesterol 30 mg/dL (>40); Sodium 144 mmol/L (135-145); Total Protein 7.9 g/dL (6.5-8.0); Triglycerides 513 mg/dL (<150)
[2024-07-13 18:17] LABS: TSH reflex Free T4 0.66 uIU/mL (0.32-4.0)
[2024-07-13 19:04] LABS: Alkaline Phosphatase 122 U/L (39-117)
[2024-07-16 21:29] LABS: Herpes Simplex Type 2 IgG <0.90 index
== END 2024-07-13 16:05 | disposition home or self-care (01) ==
LOC: HO.LAB 16:04
PROVIDERS: PCP Internal Medicine; Visit Provider Nurse Practitioner
DX: K13.70 Unspecified lesions of oral mucosa (principal); K21.9 Gastro-esophageal reflux disease without esophagitis; K22.70 Barrett's esophagus without dysplasia; K58.9 Irritable bowel syndrome, unspecified; I10 Essential (primary) hypertension; R10.9 Unspecified abdominal pain; R11.2 Nausea with vomiting, unspecified
CPT/HCPCS: 36415; 80053; 80061; 84443; 85025; 86695; 86696; 99212

== ENCOUNTER 2024-09-14 10:27 | Outpatient (REF) | payer OTHER, SELFPAY ==
--- NOTE | ~2024-09-14 | US_ITS ---
EXAMINATION: US ABDOMEN HISTORY: Abnormal liver test TECHNIQUE: Real-time grayscale ultrasound imaging of the abdomen was performed and images were reviewed. COMPARISON: Correlation is made with a CT of the abdomen with contrast dated 12/08/2022. FINDINGS: Liver: The right lobe of the liver measures 13.6 cm in size. The left lobe of the liver measures 3.3 cm in size. The liver demonstrates heterogeneously increased echotexture, consistent with steatosis. No focal mass or intrahepatic biliary ductal dilatation is identified. There is normal hepatopedal flow in the portal vein. Gallbladder and biliary tree: The gallbladder is unremarkable, without evidence of calculi, wall thickening, or pericholecystic fluid. There is no sonographic Macias sign. The common bile duct is normal in caliber measuring 2 mm. Kidneys: The right kidney measures 10.9 cm in length. The left kidney measures 11.8 cm in length. The kidneys are unremarkable, without evidence of masses, hydronephrosis, or calculi. Pancreas: The pancreatic head, neck, and body are unremarkable. The pancreatic tail is obscured by bowel gas. Spleen: The spleen is normal in size and contour, measuring 9.5 cm in length. Abdominal aorta and inferior vena cava: The visualized portions of the abdominal aorta and inferior vena cava are normal in caliber. There is no free fluid in the abdomen. US/US abdomen complete IMPRESSION: Hepatic steatosis. Otherwise unremarkable abdominal ultrasound. Electronically signed by: Husam Abel MD 09/14/2024 11:39 AM EDT
--- OUTSIDE RECORDS SUMMARY | 2024-09-14 10:30 | XMS_ITS | Encounter Summary ---
Author Organization [employer] Address [address] [place] [address] [address] [place] [address] Care Team Providers Care Clock And Watch Assembler Name Role Phone Sharonda Brooks MD Primary Care Provider [phone] Reason for Visit * Reason Comments Med Refill Encounter Details Date Type Department Care Team ([facility] Contact Info) Description 04/12/2023 Refill [facility] [address], [place] [phone] Sharonda Brooks MD [address] [place] [address] Essential (primary) hypertension Social History Tobacco Use [...] Department Care Team (Late Contact Info) Description 11/06/2024 4:00 PM EDT Office Visit [facility] [address] [place] [address] Sharonda Brooks MD [address] [place] [address] documented as of this encounter Visit Diagnoses Diagnosis Essential (primary) hypertension Unspecified essential hypertension documented in this encounter Care Teams Clock And Watch Assembler Relationship Specialty Start Date End Date Sharonda Brooks MD [address] [place] [id number] PCP - General Internal Medicine 02/07/18 documented as of this encounter
--- OUTSIDE RECORDS SUMMARY | 2024-09-14 10:30 | XMS_ITS | Clinical Summary ---
Author Organization [facility] Address [address] [id number] Care Team Providers Care Director Transition Name Role Phone Unavailable Primary Care Provider [...] - 2023-2 5 season) 2023 Influenza (#1) 2024 HPV Vaccine (No Doses Required) Completed Hep A Aged Out No longer eligi ble based on patient's age to complete this topic Hib Aged Out No longer eligi ble based on patient's age to complete this topic Meningococcal ACWY Aged Out No longer eligible based on patient's age to complete this topic
[2024-09-14 12:34] LABS: INTERNATIONAL NORM RATIO 1.0 (0.9-1.1); Prothrombin Time 11.6 SEC (10.9-12.4)
[2024-09-14 12:38] LABS: Iron 99 mcg/dL (45-160); Percent Iron Saturation 40 % (15-50); Total Iron Binding Capacity 250 mcg/dL (228-428); Unsaturated Iron Binding 151 ug/dL
[2024-09-14 12:43] LABS: Ferritin 304 ng/mL (20-250)
[2024-09-14 13:02] LABS: HBS Num1 > 1000.00 mIU/mL (0-7.99); HBc Num1 0.06 S/CO (0.00-0.79); HBsAGNum1 0.56 S/CO (0.00-0.99); Hepatitis A Antibody IgM 0.12 Index (0-0.79); Hepatitis B Surface Antigen Negative (Negative); ~HepC Num1 0.08 S/CO (0.00-0.79); ~Hepatitis A Antibody IgM Nonreactive (Nonreactive); ~Hepatitis B Surface Antibody REACTIVE (Nonreactive); ~Hepatitis C Antibody Nonreactive (Nonreactive)
== END 2024-09-14 10:28 | disposition home or self-care (01) ==
LOC: HO.US 10:27
PROVIDERS: PCP Internal Medicine; Visit Provider Internal Medicine
DX: Z01.84 Encounter for antibody response examination (principal); Z11.59 Encounter for screening for other viral diseases; R74.8 Abnormal levels of other serum enzymes; R74.01 Elevation of levels of liver transaminase levels
CPT/HCPCS: 36415; 76700; 82728; 82784; 83540; 85610; 86704; 86706; 86709; 86803; 87340

== ENCOUNTER → 2024-09-14 10:28 | Outpatient (BNV) | payer OTHER, SELFPAY | PROVIDERS: PCP Internal Medicine; Visit Provider Radiology Diagnostic Radiology | DX: K76.0 Fatty (change of) liver, not elsewhere classified (principal) | CPT/HCPCS: 76700 ==

== ENCOUNTER 2024-10-16 16:10 | Outpatient (AMB) | payer OTHER, SELFPAY ==
--- NOTE | 2024-10-16 16:14 | A.OFFVIS_ITS ---
Vital Signs 10/16/24 16:23 Height 5 ft 7 in Weight 188 lb 4.396 oz BMI 29.5 BP 121/78 Blood Pressure Location Rt brachial Position Sitting Pulse 77 Intake Visit Reasons: 3 mo f/u IBS, labs Intake Note: Patient in office today in follow up of labs and IBS. CC: Patient reports that he could not finish the medication given to him last time because he got abd pain after he started taking it. Reception Centre Manager Required: No Accompanied by: Self / Same As Patient Allergies No Known Allergies (No Known Allergies*) Allergy (Verified 10/16/24 16:38) HPI HPI 3 mo f/u IBS, labs: Details: Assessment & Plan (1) Oral mucosal lesion: Code(s): K13.70 - Unspecified lesions of oral mucosa Category: Medical (2) GERD (gastroesophageal reflux disease): Code(s): K21.9 - Gastro-esophageal reflux disease without esophagitis Category: Medical (3) Cano's esophagus determined by endoscopy: Comment: diagnosed on EGD in 2019 Code(s): K22.70 - Cano's esophagus without dysplasia Category: Medical (4) IBS (irritable bowel syndrome): Code(s): K58.9 - Irritable bowel syndrome, unspecified Category: Medical Plan His GI regimen consists of pantoprazole, simethicone and reglan 5mg tid. He is doing better with the hyoscamine, but is having double vision at times - he is vague about the onset and he says he has an upcoming optometry appt. I ask him to cut back to bid on the hyoscamine and save the 3rd dose for if he has breakthrough pain. He is c/o oral lesions, on PE they look somewhat vesicular, but small and difficult to tell if follicular as are on the lip line. He is using abreva with success. Will get labs to see if HSV vs ordinary cold sores. ROV 3 mos. Orders: Orders Herpes Simplex Virus Ab IgG 07/13/24 K13.70 - Unspecified lesions of oral mucosa Herpes Virus Culture 07/13/24 K13.70 - Unspecified lesions of oral mucosa Medications: Discontinued [id number] 36,000-114,000- 180,000 unit administer with meals and/or snacks Discontinued Reason: Doctor's Order 2 caps PO BID 120 caps 6RF K58.9 - Irritable bowel syndrome, unspecified LABS: Laboratory Tests 07/13/24 16:48 HSV I IgG Ab 44.20 H HSV II IgG <0.90 TODAY'S VISIT His GI regimen consists of pantoprazole, simethicone and reglan 5mg tid. [facility] Medical History Oral mucosal lesion Back pain Colon cancer screening E coli enteritis Acute diarrhea Campylobacter enteritis IBS (irritable bowel syndrome) GERD (gastroesophageal reflux disease) Fatty liver HTN (hypertension) Surgical History History of cystoscopy History of facial surgery Hx of colonoscopy History of esophagogastroduodenoscopy (EGD) Family History Father No problems noted. Mother No problems noted. Brother No problems noted. Sister No problems noted. 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 Review of Systems Const Denies fatigue, Denies fever(s), Denies night sweats, Denies poor appetite and Denies weight loss ENT Reports Normal hearing present, Denies dental pain, Denies dysphagia, Denies hearing loss, Denies mouth pain, Denies odynophagia, Denies throat swelling, Denies tongue swelling and Reports other (Dentition adequate) Card Reports no additional complaints Resp Reports no additional complaints GI Details: Denies abdominal pain, Denies melena, Reports bloating, Denies hematochezia, Denies constipation, Denies GI cramping, Denies dysphagia, Denies excessive flatus, Reports early satiety, Reports heartburn, Denies diarrhea, Denies nausea, Denies odynophagia, Denies vomiting and Denies hematemesis Skin/Breast Denies pruritus, Denies lesions, Denies rash and Denies jaundice Neuro Reports Normal hearing present and Denies Abnormal speech present Endo Denies fatigue Aller/Immun Denies throat swelling and Denies tongue swelling Physical Exam Vital Signs: Last Vital Signs Pulse 77 10/16/24 16:23 BP 121/78 10/16/24 16:23 BMI result Body Mass Index 29.5 Const General: cooperative, no acute distress, well developed and well groomed Nutritional Appearance: well nourished and overweight Orientation/consciousness: oriented to person, oriented to place and oriented to time Limitations: No language barrier and other limitations (Education and literacy) HEENT Head: Yes normocephalic and Yes atraumatic Eyes General: appearance normal, both eyes and all related structures Pupils: Equal, round and reactive pupils present Neck Neck: Yes normal visual inspection and Yes no lymphadenopathy Thyroid: Thyroid normal Resp Effort & Inspection: normal respiratory effort and able to speak in complete sentences Auscultation: clear to auscultation bilaterally Cardio Rate: regular rate Rhythm: regular rhythm Heart sounds: Normal, physiologic split S2 sound present Peripheral pulses: radial pulses present and posterior tibial pulses present GI Inspection: No distended, No Abdominal panniculus present and Yes obesity Palpation (GI): Soft to palpation, nontender, no guarding, not rigid and No hepatosplenomegaly present Percussion: Yes normal to percussion Auscultation: normal bowel sounds Rectal Exam - Male: Yes deferred Skin General skin exam: no rashes or lesions noted, turgor normal, skin not dry, no jaundice, No spider nevi and no striae Rashes: no rashes Nails: normal Neuro General: oriented to person, oriented to place and oriented to time Cranial nerves: Yes Equal, round and reactive pupils present and Yes Normal hearing present Speech: No Abnormal speech present Extrem General: Yes normal to inspection, No clubbing, No cyanosis and No edema Psych Appearance: grossly normal and well kempt Mental Status: mental status grossly normal Speech and movement: Normal speech and movement present Affect: normal affect Attitude: cooperative Thought process: Normal thought process present and not confabulating Thought content: Normal thought content present Insight: Limited insight present (Psych) Judgement: Limited judgement present (Psych) Results Reviewed Results Reviewed: US ABD 09/14/2024 FINDINGS: Liver: The right lobe of the liver measures 13.6 cm in size. The left lobe of the liver measures 3.3 cm in size. The liver demonstrates heterogeneously increased echotexture, consistent with steatosis. No focal mass or intrahepatic biliary ductal dilatation is identified. There is normal hepatopedal flow in the portal vein. Gallbladder and biliary tree: The gallbladder is unremarkable, without evidence of calculi, wall thickening, or pericholecystic fluid. There is no sonographic Macias sign. The common bile duct is normal in caliber measuring 2 mm. Kidneys: The right kidney measures 10.9 cm in length. The left kidney measures 11.8 cm in length. The kidneys are unremarkable, without evidence of masses, hydronephrosis, or calculi. Pancreas: The pancreatic head, neck, and body are unremarkable. The pancreatic tail is obscured by bowel gas. Spleen: The spleen is normal in size and contour, measuring 9.5 cm in length. Abdominal aorta and inferior vena cava: The visualized portions of the abdominal aorta and inferior vena cava are normal in caliber. There is no free fluid in the abdomen. US/US abdomen complete IMPRESSION: Hepatic steatosis. Otherwise unremarkable abdominal ultrasound. Laboratory Tests 07/16/23 07/13/24 09/14/24 08:00 16:48 11:32 Plt Count 227 Ferritin 304 H Total Bilirubin 0.2 AST 56 H ALT 30 Alkaline Phosphatase 122 H Triglycerides 513 H TSH 0.66 Hepatitis A IgM Ab Nonreactive Hep Bs Antigen Negative Hep Bs Antibody REACTIVE Hep B Core Total Ab Nonreactive Hepatitis C Ab (EIA) Nonreactive HIV 1&2 Ab/P24 Ag 4thGn Nonreactive Assessment & Plan Assessment & Plan (1) Cano's esophagus determined by endoscopy: Comment: diagnosed on EGD in 2019 Code(s): K22.70 - Cano's esophagus without dysplasia Category: Medical (2) Nausea and vomiting: Comment: The reason for his continued nausea remains elusive. EGD in 2011 mild gastritis, and after his reaction to the colonoscopy (although likely viral herpes) I am not in a benoit to do another EGD. Gastric emptying study was normal, but he may have intermittent delays due to parasympathetic dysfunction. Code(s): R11.2 - Nausea with vomiting, unspecified Category: Medical (3) GERD (gastroesophageal reflux disease): Code(s): K21.9 - Gastro-esophageal reflux disease without esophagitis Category: Medical (4) Elevated glucose: Code(s): R73.09 - Other abnormal glucose Category: Medical (5) Transaminitis: Comment: Baseline labs 07/15/2405/07/2507 08:0016:4811:32 Plt Count 227 Ferritin 304 H Total Bilirubin 0.2 AST 56 H ALT 30 Alkaline Phosphatase 122 H Triglycerides 513 H TSH 0.66 Hepatitis A IgM Ab Nonreactive Hep Bs Antigen Negative Hep Bs Antibody REACTIVE Hep B Core Total Ab Nonreactive Hepatitis C Ab (EIA) Nonreactive HIV 1&2 Ab/P24 Ag 4thGn Nonreactive CURRENT LABS US ABD 09/14/2024 FINDINGS: Liver: The right lobe of the liver measures 13.6 cm in size. The left lobe of the liver measures 3.3 cm in size. The liver demonstrates heterogeneously increased echotexture, consistent with steatosis. No focal mass or intrahepatic biliary ductal dilatation is identified. There is normal hepatopedal flow in the portal vein. Gallbladder and biliary tree: The gallbladder is unremarkable, without evidence of calculi, wall thickening, or pericholecystic fluid. There is no sonographic Macias sign. The common bile duct is normal in caliber measuring 2 mm. Kidneys: The right kidney measures 10.9 cm in length. The left kidney measures 11.8 cm in length. The kidneys are unremarkable, without evidence of masses, hydronephrosis, or calculi. Pancreas: The pancreatic head, neck, and body are unremarkable. The pancreatic tail is obscured by bowel gas. Spleen: The spleen is normal in size and contour, measuring 9.5 cm in length. Abdominal aorta and inferior vena cava: The visualized portions of the abdominal aorta and inferior vena cava are normal in caliber. There is no free fluid in the abdomen. US/US abdomen complete IMPRESSION: Hepatic steatosis. Otherwise unremarkable abdominal ultrasound. Code(s): R74.01 - Elevation of levels of liver transaminase levels Category: Medical Plan His GI regimen consists of pantoprazole, simethicone and reglan 5mg tid. - The patient is a 49-year-old male presenting FOR CONTINUED management of GERD, bloating and gastroparesis. - we had tried nortriptyline and simethicone for his bloating and pain but this only made it worse so he stopped it. At this time he is satisfied with his GI control on his current medications. - he expresses concern about his liver saying that his primary has ordered an ultrasound in testing. I let him know that I will add to this workup picture to be more complete and make sure there is no autoimmune process. There certainly does not appear to be an infectious etiology and this could be fatty liver with metabolic problems such as being overweight contributing. To our knowledge she has not diabetic and he does not drink alcohol. Return office visit in 6 months I will call him if I want to add anything or if I have any serious concerns about the liver workup. Orders: Orders Comprehensive Met. Panel 10/16/24 R73.09 - Other abnormal glucose Smooth Muscle Antibody 10/16/24 R73.09 - Other abnormal glucose Mitochondrial Antibody 10/16/24 R73.09 - Other abnormal glucose Alpha Fetoprotein 10/16/24 R73.09 - Other abnormal glucose Hemoglobin A1c 10/16/24 R73.09 - Other abnormal glucose Medications: New dicyclomine 20 mg PO TID 120 tabs 6RF Refilled metoclopramide HCl (Reglan) 5 mg PO .T.I.D. A.C. 60 tabs 6RF nausea and vomiting R11.2 - Nausea with vomiting, unspecified pantoprazole 40 mg PO BEDTIME 30 tabs 6RF K21.9 - Gastro-esophageal reflux disease without esophagitis Discontinued simethicone after meals Discontinued Reason: Doctor's Order 180 mg PO QID 30 days 120 caps 3RF hyoscyamine sulfate Discontinued Reason: Doctor's Order 0.125 mg PO QID 90 tabs 6RF K58.9 - Irritable bowel syndrome, unspecified Coding Level of Care Code Est Pt Level 4 (47264) Diagnoses Cano's esophagus determined by endoscopy K22.70 Nausea and vomiting R11.2 GERD (gastroesophageal reflux disease) K21.9 Elevated glucose R73.09 Transaminitis R74.01 Time Spent (min) 36
[2024-10-16 16:23] VITALS: BP 121/78; PULSE 77; BMI 29.5
--- OUTSIDE RECORDS SUMMARY | 2024-10-16 18:11 | XMS_ITS | Encounter Summary ---
Author Organization [employer] Address [address] [place] [address] [address] [place] [address] Care Team Providers Care Pick Pulling Machine Operator Name Role Phone Sharonda [place] MD Primary Care Provider [phone]- [phone] Reason for Visit * Reason Comments Med Refill Encounter Details Date Type Department Care Team ([facility] Contact Info) Description 04/12/2023 Refill [facility] MEDICINE [address] [place], [place] [phone] Sharonda [place] MD [address] [place] [address] Essential (primary) hypertension Social History Tobacco Use [...] Description 11/06/2024 4:00 PM EDT Office Visit [facility] P[facility]S [address] [place] [address] Sharonda [place] MD [address] [place] [address] documented as of this encounter Visit Diagnoses Diagnosis Essential (primary) hypertension Unspecified essential hypertension documented in this encounter Care Teams Pick Pulling Machine Operator Relationship Specialty Start Date End Date Sharonda [place] MD [address] [place] [phone] PCP - General Internal Medicine 02/07/18 documented as of this encounter
--- OUTSIDE RECORDS SUMMARY | 2024-10-16 18:11 | XMS_ITS | Encounter Summary ---
Author Organization [employer] Address [address] [place] [address] [address] [place] [address] Care Team Providers Care Operations And Maintenance Technician Name Role Phone Sharonda [place] MD Primary Care Provider [phone]- [phone] Encounter Details Date Type Department Care Team (Late Contact Info) Description 12/07/2022 Abstract [facility] MEDICINE [address] [place], [place] [phone] Sharonda [place] MD [address] [place], [place] [phone] Social History Tobacco Use Types Packs/Day Years [...] Description 11/06/2024 4:00 PM EDT Office Visit [facility] MED [facility] PEDS [address] [place] [address] Sharonda [place] MD [address] [place] [address] documented as of this encounter Procedures Procedure Name Priority Date/Time Associated Diagnosis Comments COLONOSCOPY Routine 08/25/2017 documented in this encounter Results * Colonoscopy (08/25/2017) Colonoscopy Normal Normal Narrative Gladis Gamino - 08/25/2017 Recommended 5 year follow up due to tubular adenoma us Historical Provider HEALTH MAINTENANCE Final Result documented in this encounter Visit Diagnoses Not on filedocumented in this encounter Care Teams Operations And Maintenance Technician Relationship Specialty Start Date End Date Sharonda [place] MD [address] [place] [phone] PCP - General Internal Medicine 02/07/18 documented as of this encounter
--- OUTSIDE RECORDS SUMMARY | 2024-10-16 18:11 | XMS_ITS | Encounter Summary ---
Author Organization [employer] Address [address] [place] [address] [address] [place] [address] Care Team Providers Care Soap Slabber Name Role Phone Sharonda [place] MD Primary Care Provider [phone]- [phone] Reason for Visit * Reason Comments Med Refill Encounter Details Date Type Department Care Team ([facility] Contact Info) Description 03/08/2023 Refill [facility] MEDICINE [address] [place], [place] [phone] Sharonda [place] MD [address] [place] [address] Essential (primary) hypertension Social History Tobacco Use [...] Description 11/06/2024 4:00 PM EDT Office Visit [facility] MED [facility] PEDS [address] [place] [address] Sharonda [place] MD [address] [place] [address] documented as of this encounter Visit Diagnoses Diagnosis Essential (primary) hypertension Unspecified essential hypertension documented in this encounter Care Teams Soap Slabber Relationship Specialty Start Date End Date Sharonda [place] MD [address] [place] [phone] PCP - General Internal Medicine 02/07/18 documented as of this encounter
--- OUTSIDE RECORDS SUMMARY | 2024-10-16 18:11 | XMS_ITS | Clinical Summary ---
Author Organization [employer] Address [address] [facility] 7t [place] [address] Care Team Providers Care Chainstitch Binder Name Role Phone Sharonda Brooks MD Primary Care Provider Allergies No known active allergies Medications pantoprazole (ProtoNix) 40 MG EC tablet 06/20/19 24 Active metoclopramide (Reglan) 5 MG tablet TAKE ONE TABLET THREE TIMES DAILY BEFORE MEALS FOR NAUSEA AND VOMITING 05/11/19 24 Active dicyclomine (Bentyl) 20 MG tablet TAKE ONE TABLET FOUR TIMES DAILY Active NIFEdipine CC (Adalat CC) 30 MG 24 hr tabletIndicatio ns:Essential (primary) hypertension TAKE ONE TABLET EVERY MORNING 90 tablet 1 06/22/19 25 Active cholecalciferol (Vitamin D-3) 25 MCG tablet TAKE ONE TABLET EVERY MORNING 90 tablet 1 06/22/19 25 Active rosuvastatin (Crestor) 20 MG tabletIndicatio ns:Hypercholest erolemia Take 1 tablet (20 mg) by mouth Once per day. 30 tablet 08/01/19 25 026 Active ciclopirox (Penlac) 8 % solution Apply topically at bedtime. Weekly nail trimming. Remove with alcohol every 7 days. Active lisinopril 10 MG tabletIndicatio ns:Essential (primary) hypertension TAKE ONE TABLET EVERY MORNING 90 tablet 1 10/13/19 25 Active lisinopril 10 MG tablet take 1 tablet by oral route every day 06/27/19 22 025 Discontinued lisinopril 10 MG tabletIndicatio ns:Essential (primary) hypertension TAKE ONE TABLET EVERY MORNING 90 tablet 1 04/13/19 25 025 Discontinued Efinaconazole (Jublia) 10 % solutionIndicat ions:Onychomyco sis To use daily 8 mL 3 08/01/19 25 025 Discontinued(Co st of medication) Active Problems Problem Noted Date Diagnosed Date Hypercholesterolemia 07/31/2024 Hypertensive disorder 09/04/2018 Gastroesophageal reflux disease without esophagi tis 06/14/2016 Depressive disorder 11/19/2011 Erectile dysfunction 11/19/2011 Gastritis 11/19/2011 Hiatal hernia 11/19/2011 Encounters Date Type Department Care Team Description 10/12/2024 Refill [facility] [address] [place] [address] Sharonda Brooks MD Essential (primary) hypertension 09/26/2024 Orders Only [facility] [address] [place] [address] Sharonda Brooks MD 09/26/2024 Telephone [facility] [address] [place] [address] Sharonda Sexton MD Appointment Request 09/25/2024 Telephone [facility] [address] [place] [address] Sharonda Sexton MD Call Back Request; Medication Question 09/18/2024 Results Follow-Up [facility] [address] [place] [address] Sharron Becerra RN US Abdomen Complete 09/10/2024 Telephone [facility] [address] [place] [address] Sharonda Sexton MD Prior Authorization 07/31/2024 4:00 PM EDT Office Visit [facility] [address] [place], [place] K[address] [place] [phone] Sexton MD Hypercholesterolemia (Primary Dx); Primary hypertension; Onychomycosis 07/31/2024 Travel 07/16/2024 Results Follow-Up [facility] [address] [place] [address] Sharron Becerra RN CBC auto differential, Comprehensive Metabolic Panel, Lipid Panel, Standard, TSH W/Reflex to FT4 07/16/2024 Orders Only [facility] [address] [facility] [place] [address] Sharonda Brooks MD Alkaline phosphatase elevation (Primary Dx); Transaminitis from Last 3 Months Immunizations Immunization Administration Dates Next Due Hep B, adult [...] is your housing situation today? I have ramirosanjiv blackwell 05/03/[address] you [...] Sign Reading Time Taken Comments Blood Pressure 131/77 07/31/2024 4:16 PM EDT Pulse 83 07/31/2024 4:16 PM EDT Temperature 36.8 C (98.3 F) 07/31/2024 4:16 PM EDT Respiratory Rate 20 07/31/2024 4:16 PM EDT Oxygen Saturation 98% 07/31/2024 4:16 PM EDT Inhaled Oxygen Concentration - - Weight 86.6 kg (191 lb) 07/31/2024 4:16 PM EDT Height 172.7 cm (5' 8 ) 07/31/2024 4:16 PM EDT Body Mass Index 29.04 07/31/2024 4:16 PM EDT Plan of Treatment Upcoming Encounters Date Type Department Care Team (Late st Contact Info) Description 11/06/2024 4:00 PM EDT Office Visit [facility] [address] [place] [address] Sharonda Brooks MD [address] [place] [address] Health Maintenance Due Date Last Done Comments CT Colonography 1973 FIT DNA/Cologuard 1973 FIT 1973 FOBT 1975 Sigmoidoscopy 1975 Disability Screening 1975 Family Planning (PISQ) 1988 Colonoscopy 08/25/2022 08/25/2017, 08/25/2017 Colorectal Cancer Screening 08/25/2022 Zoster Vaccines (1 of 2) 08/18/2023 SDOH Screening 05/02/2024 05/03/2023 Hepatitis B Vaccines (2 of 3 - 19+ 3-dose series) 05/24/2024 04/26/2024 Depression Screening 06/22/2024 06/23/2023, 06/23/19 24 COVID-19 Vaccine ( season) 2024 02/20/2022, 06/05/2020, 05/15/2020 Influenza Vaccine (#1) 2024 Alcohol/Substance Use Screening 04/26/2025 04/26/2024 Tobacco Screening 07/31/2025 07/31/2024 DTaP/Tdap/Td Vaccines (2 - Td or Tdap) 08/25/2026 08/25/2016 Lipid Panel 07/13/2029 07/13/2024, 02/07, 12/16/2020, Additional history exists RSV Patients and Patients Aged 60 years or older (1 - 1-dose 75+ series) 2048 HIV Screening Completed 07/16/2023 Pneumococcal Vaccine: 50+ Years Completed 04/26/2024 Hepatitis C Screening Completed 09/14/2024, 024 HIB Vaccines Aged Out No longer eligi [...] patient's age to complete this topic Meningococcal B Vaccine Aged Out No l onger eligible based on patient's age to complete [...] Name Priority Date/Time Associated Diagnosis Comments HEPATITIS PANEL, GENERAL Routine 09/14/2024 11:32 AM EDT Alkaline phosphatase elevation Transaminitis IRON AND TOTAL IRON BINDING CAPACITY Routine 09/14/2024 11:32 AM EDT Alkaline phosphatase elevation Transaminitis FERRITIN Routine 09/14/2024 11:32 AM EDT Alkaline phosphatase elevation Transaminitis PROTHROMBIN TIME-INR Routine 09/14/2024 11:32 AM EDT Alkaline phosphatase elevation Transaminitis IMMUNOGLOBULINS, QUANTITATIVE, IGA, IGG, IGM Routine 09/14/2024 11:32 AM EDT Alkaline phosphatase elevation Transaminitis US ABDOMEN COMPLETE Routine 09/14/2024 1 1:00 AM EDT Alkaline phosphatase elevation Transaminitis LIPID PANEL, STANDARD Routine 07/13/2024 4:48 PM EDT Primary hypertension HIV 1/2 ANTIGEN/ANTIBODY, FOURTH GENERATION W/RFL Routine 07/16/2023 8:00 AM EDT Other fatigue HM COLONOSCOPY Routine 08/25/2017 from Last 3 Months or Most Recently Relevant to Health Maintenance Results * Hepatitis A,B,C Profile (09/14/2024 11:32 AM EDT) Pathologist [facility] Hepatitis A IgM Nonreactive Nonreactive [facility] Comment:IgM antibodies to WOODS V not detected; does not exclude earlyacute or recovered HAV infection. ~Hepatitis B Surface Antibody REACTIVE Nonreactive [facility] Comment:REACTIVE: > 11.99 mI U/mL Hepatitis B Core Antibody Nonreactive Nonreactive [facility] Hepatitis C Antibody Nonreactive Nonreactive [facility] Comment:Antibodies to HCV no t detected; does not exclude early acuteHCV infection. Hepatitis B Surface Ag Negative Negative [facility] Blood Venous blood specimen / Unknown 09/14/2024 11:32 AM EDT 09/14/2024 11:32 AM EDT us Sharonda Brooks MD LAB BLOOD ORDERABLES Final Result [facility] [address] [place] [phone] * Iron And Total Iron Binding Capacity (09/14/2024 11:32 AM EDT) Pathologist [facility] Iron 99 45 - 160 mcg/dL [facility] Total Iron Binding Capacity 250 228 - 428 mcg/dL [facility] Percent Iron Saturation 40 15 - 50 % [facility] Unsaturated Iron Binding 151 ug/dL [facility] Blood Venous blood specimen / Unknown 09/14/2024 11:32 AM EDT 09/14/2024 11:32 AM EDT us Sharonda Brooks MD LAB BLOOD ORDERABLES Final Result [facility] [address] [place] [address] [phone] * Prothrombin Time-INR (09/14/2024 11:32 AM EDT) Pathologist [facility] Prothrombin Time 11.6 10.9 - 12.4 SEC [facility] INTERNATIONAL NORM RATIO 1.0 0.9 - 1.1 [facility] Comment:INTERNATIONAL NORMAL IZED RATIO (INR) REFERENCE RANGES Reference RangeFor patients not on anticoagulant therapy: 0.9 - 1.1INR ranges for oral anticoagulanttherapy:For prevention and treatment of venous thrombosis and pulmonary embolism: 2.0 - 3.0For acute myocardial infarction with aspirin therapy: 2.0 - 3.0For acute myocardial infarction without aspirin therapy: 3.0 - 4.0For patients with mechanical prosthetic heart valves: 2.5 - 3.5 Blood Venous blood specimen / Unknown 09/14/2024 11:32 AM EDT 09/14/2024 11:32 AM EDT us Sharonda Brooks MD LAB BLOOD ORDERABLES Final Result Performing Organization Address City/[facility]/ZIP Co de Phone Number [facility] [address] [place] [phone] * (ABNORMAL) Immunoglobulins, Quantitative, IgA, IgG, IgM (09/14/2024 11:32 AM EDT) IMMUNOGLOBULIN G 1454 600 - 1640 mg/dL [facility] IMMUNOGLOBULIN A 350(A) 47 - 310 mg/dL [facility] Immunoglobulin M 94 50 - 300 mg/dL [facility] Comment:THIS TEST WAS PERFOR MED AT:[facility] [place] [phone] BARCENAS MD Blood Venous blood specimen / Unknown 09/14/2024 11:32 AM EDT 09/14/2024 11:32 AM EDT us Sharonda Brooks MD LAB BLOOD ORDERABLES Final Result Performing Organization Address [facility] Co de Phone Number [facility] [address] [place] [phone] * (ABNORMAL) Ferritin (09/14/2024 11:32 AM EDT) Ferritin 304(H) 20 - 250 ng/mL [facility] Blood Venous blood specimen / Unknown 09/14/2024 11:32 AM EDT 09/14/2024 11:32 AM EDT us Sharonda Brooks MD LAB BLOOD ORDERABLES Final Result Performing Organization Address [facility] de Phone Number [facility] [address] [place] [phone] * US Abdomen Complete (09/14/2024 11:00 AM EDT) Anatomical Region Laterality Modality Abdomen Ultrasound 09/14/2024 11:0 0 AM EDT Narrative 09/14/2024 11:43 AM EDT [address] [phone] Ultrasound Report Signed Patient: Mu Hennessy MR#: [id number] : 1975 Acct:[id number] Age/Sex: 49 / M ADM Date: 09/14/24 Loc: HO.US Attending Dr: Sharonda Brooks MD Ordering Physician: Sharonda Brooks MD Date of Service: 09/14/24 Procedure(s): US abdomen complete Accession Number(s): [id number] cc: Sharonda Brooks MD EXAMINATION: US ABDOMEN HISTORY: Abnormal liver test TECHNIQUE: Real-time grayscale ultrasound imaging of the abdomen was performed and images were reviewed. COMPARISON: Correlation is made with a CT of the abdomen with contrast dated 12/08/2022. FINDINGS: Liver: The right lobe of the liver measures 13.6 cm in size. The left lobe of the liver measures 3.3 cm in size. The liver demonstrates heterogeneously increased echotexture, consistent with steatosis. No focal mass or intrahepatic biliary ductal dilatation is identified. There is normal hepatopedal flow in the portal vein. Gallbladder and biliary tree: The gallbladder is unremarkable, without evidence of calculi, wall thickening, or pericholecystic fluid. There is no sonographic Macias sign. The common bile duct is normal in caliber measuring 2 mm. Kidneys: The right kidney measures 10.9 cm in length. The left kidney measures 11.8 cm in length. The kidneys are unremarkable, without evidence of masses, hydronephrosis, or calculi. Pancreas: The pancreatic head, neck, and body are unremarkable. The pancreatic tail is obscured by bowel gas. Spleen: The spleen is normal in size and contour, measuring 9.5 cm in length. Abdominal aorta and inferior vena cava: The visualized portions of the abdominal aorta and inferior vena cava are normal in caliber. There is no free fluid in the abdomen. US/US abdomen complete IMPRESSION: Hepatic steatosis. Otherwise unremarkable abdominal ultrasound. Electronically signed by: Husam Abel MD 09/14/2024 11:39 AM EDT Dictated By: Husam Abel MD Signed By: <Electronically signed by Husam Abel MD in OV> 09/14/24 1139 DD/ 1100 TD/TT: 09/14/24 1130 Supervisor Brine: Procedure Note Donotuseinterpreter, Image - 09/14/2024 [place] [id number] Ultrasound Report Signed Patient: Viraj Hennessy#: [id number] : 1975Acct:[id number] Age/Sex: 49 / MADM Date: 09/14/24 Loc: HO.US Attending Dr: Sharonda Brooks MD Ordering Physician: Sharonda Brooks MD Date of Service: 09/14/24 Procedure(s): US abdomen complete Accession Number(s): [id number] cc: Sharonda Brooks MD EXAMINATION: US ABDOMEN HISTORY: Abnormal liver test TECHNIQUE: Real-time grayscale ultrasound imaging of the abdomen was performed and images were reviewed. COMPARISON: Correlation is made with a CT of the abdomen with contrast dated 12/08/2022. FINDINGS: Liver: The right lobe of the liver measures 13.6 cm in size. The left lobe of the liver measures 3.3 cm in size. The liver demonstrates heterogeneously increased echotexture, consistent with steatosis. No focal mass or intrahepatic biliary ductal dilatation is identified. There is normal hepatopedal flow in the portal vein. Gallbladder and biliary tree: The gallbladder is unremarkable, without evidence of calculi, wall thickening, or pericholecystic fluid. There is no sonographic Macias sign. The common bile duct is normal in caliber measuring 2 mm. Kidneys: The right kidney measures 10.9 cm in length. The left kidney measures 11.8 cm in length. The kidneys are unremarkable, without evidence of masses, hydronephrosis, or calculi. Pancreas: The pancreatic head, neck, and body are unremarkable. The pancreatic tail is obscured by bowel gas. Spleen: The spleen is normal in size and contour, measuring 9.5 cm in length. Abdominal aorta and inferior vena cava: The visualized portions of the abdominal aorta and inferior vena cava are normal in caliber. There is no free fluid in the abdomen. US/US abdomen complete IMPRESSION: Hepatic steatosis. Otherwise unremarkable abdominal ultrasound. Electronically signed by: Husam Abel MD 09/14/2024 11:39 AM EDT Dictated By: Husam Abel MD Signed By: <Electronically signed by Husam Abel MD in OV> 09/14/24 1139 DD/ 1100 TD/TT: 09/14/24 1130 Supervisor Brine: us Thevenin Beauzile MD IMG US PROCEDURES Final Res ult * (ABNORMAL) Lipid Panel, Standard (07/13/2024 4:48 PM EDT) Triglycerides 513(H) <150 mg/dL [facility] Comment:Mild Lipemia.Desirab le Triglyceride: less than 150 mg/dLBorderline High Triglyceride 150-199 mg/dLHigh Triglyceride: 200-499 mg/dLVery High Triglyceride: greater than or equal to 5OO mg/dL Cholesterol 210(H) <200 mg/dL [facility] Comment:Desirable Cholestero l: less than 200 mg/dLBorderline High Cholesterol: 200-239 mg/dLHigh Cholesterol: greater than 239 mg/dL LDL Cholesterol Calculated TNP <100 mg/dL [facility] Comment:Unable to calculate the LDL. The formula of Friedwald,Pickens, and Nevin is only valid if the triglycerides areless than 400 mg/dl. HDL Cholesterol 30(L) >40 mg/dL [facility] Comment:Desirable HDL: great er than 40 mg/dL Note: This HDL assay may give artificially low results in patients with liver disease. Blood Venous blood specimen / Unknown 07/13/2024 4:48 PM EDT 07/13/2024 4:48 PM EDT Sharonda Brooks MD LAB BLOOD ORDERABLES Final Result [facility] [address] [place] [phone] * HIV-1/2 Antigen and Antibodies, Fourth Generation, with Reflexes (07/16/2023 8:00 AM EDT) HIV AB/AG Nonreactive Nonreactive [facility] Comment:HIV-1 p24 Ag and/or HIV-1/HIV-2 Ab not detected.A test result that is nonreactive does not exclude thepossibility of exposure to or infection with HIV-1 and/orHIV-2. Nonreactive results in this assay for individualswith prior exposure to HIV-1 and/or HIV-2 may be due toantigen and antibody levels that are below the limit ofdetection of this assay.The [employer] Foundationni[employer] HIV Ag/Ab Combo assay result andsupplemental assay results should be interpreted inconjunction with the patient's clinical presentation,history and other laboratory results. If the results areinconsistent with clinical evidence, additional testing issuggested to confirm the result. Blood Venous blood specimen / Unknown 07/16/2023 8:00 AM EDT 07/16/2023 8:00 AM EDT us Sharonda Brooks MD LAB BLOOD ORDERABLES Final Result [facility] [address] [place] [phone] * Colonoscopy (08/25/2017) Colonoscopy Normal Normal Narrative Gladis Gamino - 08/25/2017 Recommended 5 year follow up due to tubular adenoma Historical Provider HEALTH MAINTENANCE Final Result from Last 3 Months or Most Recently Relevant to Health Maintenance Insurance [employer] 3 Care Teams Chainstitch Binder Relationship Specialty Start Date End Date Sharonda Brooks MD [address] [place] [phone] PCP - General Internal Medicine 02/07/18
--- OUTSIDE RECORDS SUMMARY | 2024-10-16 18:11 | XMS_ITS | Encounter Summary ---
Author Organization [employer] Address [address] [facility] 7 [place] [address] Care Team Providers Care Pharmacy Tech Customer Service Name Role Phone Sharonda Brooks MD Primary Care Provider [phone] Encounter Details Date Type Department Care Team ([facility] st Contact Info) Description 09/26/2024 Orders Only [facility] [address] [place], [place] [phone] Sharonda Brooks MD [address] [place], [place] [phone] Social History Tobacco Use Types Packs/Day Years Used Date Smoking Tobacco: Never Smokeless Tobacco: Never Alcohol Use Standard Drinks/Week Comments Defer 0 [...] Description 11/06/2024 4:00 PM EDT Office Visit [facility] [address] [place] [address] Sharonda Brooks MD [address] [place] [address] documented as of this encounter Visit Diagnoses Not on filedocumented in this encounter Additional Health Concerns Assessment Noted Time PHQ-9 Depression Total Score: 6 06/23/19 24 1:44 PM EDT documented as of this encounter Care Teams Pharmacy Tech Customer Service Relationship Specialty Start Date End Date Sharonda Brooks MD [address] [place] [address] PCP - General Internal Medicine 02/07/18 documented as of this encounter
--- OUTSIDE RECORDS SUMMARY | 2024-10-16 18:11 | XMS_ITS | Encounter Summary ---
Author Organization [employer] Address [address] [facility] 7 [place] [address] Care Team Providers Care Conservation Coordinator Name Role Phone Sharonda Brooks MD Primary Care Provider [phone] Reason for Visit * Reason Comments Med Refill Encounter Details Date Type Department Care Team ([facility] st Contact Info) Description 10/12/2024 Refill [facility] [address] [place], [place] [phone] Sharonda Brooks MD [address] [place] [address] Essential (primary) hypertension Social History Tobacco Use [...] Description 11/06/2024 4:00 PM EDT Office Visit [facility] [address] [place] [address] Sharonda Brooks MD [address] [place] [address] documented as of this encounter Visit Diagnoses Diagnosis Essential (primary) hypertension Unspecified essential hypertension documented in this encounter Additional Health Concerns Assessment Noted Time PHQ-9 Depression Total Score: 6 06/23/19 24 1:44 PM EDT documented as of this encounter Care Teams Conservation Coordinator Relationship Specialty Start Date End Date Sharonda Brooks MD [address] [place] [address] PCP - General Internal Medicine 02/07/18 documented as of this encounter
--- OUTSIDE RECORDS SUMMARY | 2024-10-16 18:11 | XMS_ITS | Clinical Summary ---
Author Organization [employer] [facility] Address [address] [place] [phone] Care Team Providers Care Paediatrician Name Role Phone Unavailable Primary Care Provider [...] COVID-19 Vaccine ( - 2023-2 5 season) 2024 Influenza (#1) 2024 HPV Vaccine (No Doses Required) Completed Hep A Aged Out No longer eligi ble based on patient's age to complete this topic Hib Aged Out No longer eligi ble based on patient's age to complete this topic Meningococcal ACWY Aged Out No longer eligible based on patient's age to complete this topic
--- OUTSIDE RECORDS SUMMARY | 2024-10-16 18:11 | XMS_ITS | Encounter Summary ---
Author Organization [employer] Address [address] [place] [address] 7 [place] [address] Care Team Providers Care Emergency Department Clinician Name Role Phone Sharonda Brooks MD Primary Care Provider [phone] Reason for Visit * Reason Comments Med Refill Encounter Details Date Type Department Care Team ([facility] Contact Info) Description 03/31/2023 Refill [facility] [address] [place], [place] [phone] Sharonda Brooks MD [address] [place] [address] Essential (primary) hypertension Social History Tobacco Use [...] Description 11/06/2024 4:00 PM EDT Office Visit [facility] [address] [place] [address] Sharonda Brooks MD [address] [place] [address] documented as of this encounter Visit Diagnoses Diagnosis Essential (primary) hypertension Unspecified essential hypertension documented in this encounter Care Teams Emergency Department Clinician Relationship Specialty Start Date End Date Sharonda Brooks MD [address] [place] [phone] PCP - General Internal Medicine 02/07/18 documented as of this encounter
--- OUTSIDE RECORDS SUMMARY | 2024-10-16 18:11 | XMS_ITS | Encounter Summary ---
Author Organization [employer] Address [address] [place] [address] 7 [place] [address] Care Team Providers Care Gas Station Clerk Name Role Phone Sharonda Brooks MD Primary Care Provider [phone] Reason for Referral * Imaging (Routine) - Pending Review Specialty Diagnoses / Procedures Referred By Contac t Referred To Contact Radiology Diagnoses Alkaline phosphatase elevation Transaminitis Procedures US Abdomen Complete Sharonda Brooks MD [address] [place] [address] Phone: tel: fax: [address] Phone: tel: fax: Referral ID Status Reason Start Date Expiration Date V isits Requested Visits Authorized [id number] Pending Review 07/16/2024 07/16/2025 1 1 Encounter Details Date Type Department Care Team (Late st Contact Info) Description 07/16/2024 Orders Only [facility] [address] [place] [address] Sharonda Brooks MD [address] [place] [address] Alkaline phosphatase elevation (Primary Dx); Transaminitis Social History Tobacco Use Types Packs/Day Years [...] Upcoming Encounters Date Type Department Care Team ([facility] st Contact Info) Description 11/06/2024 4:00 PM EDT Office Visit [facility] [address] [place] [address] Sharonda Brooks MD [address] [place] [address] Scheduled Orders Name Type Priority Associated Diagnoses Orde r Schedule Smooth Muscle Antibody with Reflex to Titer Lab Routine Alkaline phosphatase elevation Transaminitis Expected: 07/16/2024 (Approximate), Expires: 07/16/2025 Alpha 1 Antitrypsin Lab Routine Alkaline phosphatase elevation Transaminitis Expected: 07/16/2024 (Approximate), Expires: 07/16/2025 documented as of this encounter Procedures Procedure [...] 1:00 AM EDT Alkaline phosphatase elevation Transaminitis documented in this encounter Results * Hepatitis A,B,C Profile (09/14/2024 11:32 AM EDT) Hepatitis A IgM Nonreactive Nonreactive [facility] Comment:IgM antibodies to WOODS V not detected; does not exclude earlyacute or recovered HAV infection. ~Hepatitis B Surface Antibody REACTIVE Nonreactive [facility] Comment:REACTIVE: > 11.99 mI U/mL Hepatitis B Core Antibody Nonreactive Nonreactive [facility] Hepatitis C Antibody Nonreactive Nonreactive [facility] Comment:Antibodies to HCV no t detected; does not exclude early acuteHCV infection. Hepatitis B Surface Ag Negative Negative [facility] Blood Venous blood specimen / Unknown 09/14/2024 11:32 AM EDT 09/14/2024 11:32 AM EDT us Sharonda Brooks MD LAB BLOOD ORDERABLES Final Result Performing Organization Address [facility] Co de Phone Number [facility] [address] [place] [phone] * Iron And Total Iron Binding Capacity (09/14/2024 11:32 AM EDT) Iron 99 45 - 160 mcg/dL [facility] Total Iron Binding Capacity 250 228 - 428 mcg/dL [facility] Percent Iron Saturation 40 15 - 50 % [facility] Unsaturated Iron Binding 151 ug/dL [facility] Blood Venous blood specimen / Unknown 09/14/2024 11:32 AM EDT 09/14/2024 11:32 AM EDT us Sharonda Brooks MD LAB BLOOD ORDERABLES Final Result Performing Organization Address [facility] Co de Phone Number [facility] [address] [place] [address] [phone] * (ABNORMAL) Ferritin (09/14/2024 11:32 AM EDT) Pathologist [facility] Ferritin 304(H) 20 - 250 ng/mL [facility] Blood Venous blood specimen / Unknown 09/14/2024 11:32 AM EDT 09/14/2024 11:32 AM EDT us Sharonda Brooks MD LAB BLOOD ORDERABLES Final Result Performing Organization Address [facility] Co de Phone Number [facility] [address] [place] [phone] * Prothrombin Time-INR (09/14/2024 11:32 AM EDT) Prothrombin Time 11.6 10.9 - 12.4 SEC [facility] INTERNATIONAL NORM RATIO 1.0 0.9 - 1.1 [facility] Comment:INTERNATIONAL NORMAL IZED RATIO (INR) [...] BLOOD ORDERABLES Final Result Performing Organization Address [facility] Co de Phone Number [facility] [address] [place] [address] [phone] * (ABNORMAL) Immunoglobulins, Quantitative, IgA, IgG, IgM (09/14/2024 11:32 AM EDT) IMMUNOGLOBULIN G 1454 600 - 1640 mg/dL [facility] IMMUNOGLOBULIN A 350(A) 47 - 310 mg/dL [facility] Immunoglobulin M 94 50 - 300 mg/dL [facility] Comment:THIS TEST WAS PERFOR MED AT:[facility] [place] [phone] BARCENAS MD Blood Venous blood specimen / Unknown 09/14/2024 11:32 AM EDT 09/14/2024 11:32 AM EDT us Sharonda Brooks MD LAB BLOOD ORDERABLES Final Result Performing Organization Address [facility] Co de Phone Number [facility] [address] [place] [phone] * US Abdomen Complete (09/14/2024 11:00 AM EDT) Anatomical Region Laterality Modality Abdomen Ultrasound 09/14/2024 11:0 0 AM EDT Narrative 09/14/2024 11:43 AM EDT [address] [address] Ultrasound Report Signed Patient: Mu Hennessy MR#: [id number] : 1975 Acct:[id number] Age/Sex: 49 / M ADM Date: 09/14/24 Loc: HO.US Attending Dr: Sharonda Brooks MD Ordering Physician: Sharonda Brooks MD Date of Service: 09/14/24 Procedure(s): US abdomen complete Accession Number(s): [id number] cc: Sharonda Brooks MD EXAMINATION: US ABDOMEN [...] 09/14/24 1139 DD/ 1100 TD/TT: 09/14/24 1130 Sports Nutritionist: Procedure Note Donotharryinterpreter, Image - 09/14/2024 [place] [id number] Ultrasound Report Signed Patient: Viraj Hennessy#: [id number] : 1975Acct:[id number] Age/Sex: 49 / MADM Date: 09/14/24 Loc: HO.US Attending Dr: Sharonda Brooks MD Ordering Physician: Sharonda Brooks MD Date of Service: 09/14/24 Procedure(s): US abdomen complete Accession Number(s): [id number] cc: Sharonda Brooks MD EXAMINATION: US ABDOMEN [...] 09/14/24 1139 DD/ 1100 TD/TT: 09/14/24 1130 Sports Nutritionist: us Sharonda Brooks MD IMG US PROCEDURES Final Res ult documented in this encounter Visit Diagnoses Diagnosis Alkaline phosphatase elevation- Primary Other nonspecific abnormal serum enzyme levels Transaminitis Nonspecific elevation of levels of transaminase or lactic acid dehydrogenase (LDH) documented in this encounter Additional Health Concerns Assessment Noted Time PHQ-9 Depression Total Score: 6 06/23/19 24 1:44 PM EDT documented as of this encounter Care Teams Gas Station Clerk Relationship Specialty Start Date End Date Sharonda Brooks MD [address] [place] [phone] PCP - General Internal Medicine 02/07/18 documented as of this encounter
--- OUTSIDE RECORDS SUMMARY | 2024-10-16 18:11 | XMS_ITS | Encounter Summary ---
Author Organization [employer] Address [address] [facility] 7 [place] [address] Care Team Providers Care Garage Attendant Name Role Phone Sharonda Brooks MD Primary Care Provider Encounter Details Date Type Department Care Team (Late st Contact Info) Description 03/23/2022 Orders Only [facility] [address] [place], [place] [phone] Fiordaliza Chavarria LPN Social History Tobacco Use [...] Description 11/06/2024 4:00 PM EDT Office Visit [facility] [address] [place], [place] [phone] Sharonda Brooks MD [address] [place] [address] documented as of this encounter Procedures Procedure [...] EDT) Amylase 97 28 - 100 U/L [facility] 11/04/2022 4:47 PM EDT 11/04/2022 4:47 PM EDT Generic External Data Provider LAB BLOOD ORDERAB LES Final Result Performing Organization Address [facility]/ZIP Co de Phone Number [facility] [address] [place] [phone] * Lipase (11/04/2022 4:47 PM EDT) Lipase 47 8 - 78 U/L [facility] 11/04/2022 4:47 PM EDT 11/04/2022 4:47 PM EDT Generic External Data Provider LAB BLOOD ORDERAB LES Final Result Performing Organization Address [facility] Co de Phone Number [facility] [address] [place] [phone] * C-reactive Protein (11/04/2022 4:47 PM EDT) C Reactive Protein 0.35 < or = 0.50 mg/dL [facility] 11/04/2022 4:47 PM EDT 11/04/2022 4:47 PM EDT us Generic External Data Provider LAB BLOOD ORDERAB LES Final Result Performing Organization Address City/[facility]/ZIP Co de Phone Number [facility] [address] [place] [phone] * (ABNORMAL) Comprehensive Metabolic Panel (11/04/2022 4:47 PM EDT) Sodium 139 135 - 145 mmol/L [facility] Potassium 4.0 3.3 - 5.1 mmol/L [facility] Chloride 104 96 - 108 mmol/L [facility] Carbon Dioxide 25 22 - 29 mmol/L [facility] Anion Gap 14 12 - 20 [facility] Urea Nitrogen (BUN) 13 9 - 16 mg/dL [facility] Creatinine, Serum 1.06 0.5 - 1.4 mg/dL [facility] Estimated Glomerular Filt Rate >60 [facility] Comment:NOTE: For -Am erican individuals, multiply the result by 1.210.Chronic Kidney Disease: Estimated GFR < 60 mL/min/[id number] Kidney Disease: Estimated GFR < 15 mL/min/1.73m2 Glucose 80 60 - 115 mg/dL [facility] Calcium 9.8 8.4 - 10.2 mg/dL [facility] Bilirubin, Total 0.3 0.0 - 1.0 mg/dL [facility] Aspartate Amino Transferase 26 5 - 37 U/L [facility] Alanine Aminotransferase 27 0 - 40 U/L [facility] Total Protein 8.1(H) 6.5 - 8.0 g/dL [facility] Albumin Level 4.4 3.5 - 5.0 g/dL [facility] Alkaline Phosphatase 114 39 - 117 U/L [facility] 11/04/2022 4:47 PM EDT 11/04/2022 4:47 PM EDT [facility] External Provider LAB BLO OD ORDERABLES Final Result [facility] [address] [place] [phone] * (ABNORMAL) CBC auto differential (11/04/2022 4:47 PM EDT) White Blood Count 8.8 4.8 - 10.8 X10*3/uL [facility] Red Blood Count 5.01 4.60 - 5.80 X10*6/uL [facility] Hemoglobin 15.2 14.0 - 18.0 g/dl [facility] Hematocrit 44.5 42.0 - 52.0 % [facility] Mean Corpuscular Volume 88.8 80.0 - 98.0 fL [facility] Mean Corpuscular Hemoglobin 30.3 27.0 - 33.0 pg [facility] Mean Corpuscular HGB Conc 34.2 31.0 - 36.0 g/dl [facility] Red Cell Distribution Width 12.7 11.0 - 16.0 % [facility] Platelet Count 233 160 - 400 X10*3/uL [facility] Mean Platelet Volume 11.8 9.4 - 12.4 fL [facility] Neutrophils Percent Auto 62.5 45 - 73 % [facility] Imm Gran Pct Auto 0.5(H) 0.0 - 0.4 % [facility] Lymphocytes Percent Auto 25.9 20 - 40 % [facility] Monocytes Percent Auto 9.3 2 - 11 % [facility] Eosinophils Percent Auto 1.0 0 - 4 % [facility] Basophils Percent Auto 0.8 0 - 2 % [facility] NRBC Pct Auto 0.0 0.0 - 0.2 /100WBC [facility] Neutrophils Absolute Auto 5.5 2.0 - 8.3 x10*3/uL [facility] Imm Gran Abs Auto 0.04(H) 0.00 - 0.03 X10*3/uL [facility] Lymphocytes Absolute Auto 2.3 1.2 - 4.9 X10*3/uL [facility] Monocytes Absolute Auto 0.8 0.1 - 1.2 X10*3/uL [facility] Eosinophils Absolute Auto 0.1 0.0 - 0.4 X10*3/uL [facility] Basophils Absolute Auto 0.1 0.0 - 0.2 X10*3/uL [facility] NRBC Abs Auto 0.000 0.0 - 0.012 X10*3/uL [facility] 11/04/2022 4:47 PM EDT 11/04/2022 4:47 PM EDT [facility] External Provider LAB BLO OD ORDERABLES Final Result Performing Organization Address [facility]/ZIP Co de Phone Number [facility] [address] [place] [phone] * C-reactive Protein (09/17/2022 12:40 PM EDT) C Reactive Protein 0.18 < or = 0.50 mg/dL [facility] 09/17/2022 12:4 0 PM EDT 09/17/2022 12:40 PM EDT [facility] External Provider LAB BLO OD ORDERABLES Final Result Performing Organization Address [facility] de Phone Number [facility] [address] [place] [phone] * Hematoxylin and Eosin Stain (05/14/2022 9:08 AM EDT) 05/14/2022 9:08 AM EDT 05/14/2022 10:00 AM EDT Narrative [facility] - 05/17/2022 4:07 PM EDT ----- ------- Name: Mu Hennessy Age/Sex: 46/M : 1975 [id number]#: [id number] Attend Dr: Papa Parra MD Re05/14/22 Status: [facility] Location: [facility] Disch: ----- ------- SPEC : [id number] RECD: 05/14/22-1000 STATUS: IONA LEAVITT NUM: [id number] TERESA: 05/14/22-[address] [facility] [address]: Papa Parra MD ENTERED: 05/14/22-1006 SP TYPE: Surgical OTHR DR: Sharonda Brooks MD ORDERED: HE Stain/3, Gross Micro L4/2, IHC, H. pylori COMMENTS: Part A: One of the tissue fragments is extremely tiny and may be difficult to identify during processing and may fail to survive processing. Diagnosis A. Gastric antrum, biopsy: Gastric antrum with mild reactive changes, congestion, focal intestinal metaplasia, and minimal chronic inactive gastritis; negative for H pylori and dysplasia. B. Esophagogastric junction, biopsy: Squamocolumnar mucosa with mild chronic inflammation; negative for intestinal metaplasia and dysplasia. Clinical History Pre-Op Dx: Follow-up Cano's, screening Post-Op Dx: GERD, hiatal hernia, gastritis, diverticulosis, hemorrhoids Microscopic Description Microscopic sections reviewed. Immunohistochemical stain for H. pylori on A is negative with appropriate control. Material Received A: Gastric antral bx's r/o H. pylori B: Distal esophagus r/o Cano's Gross Description Received in two parts. Part [...] performed: immunostain for H. pylori on A1. CONTINUED ON NEXT PAGE ----- ------- Name: Mu Hennessy Age/Sex: 46/M : 1975 Unit#: [id number] Attend Dr: Papa Parra MD Re05/14/22 Status: [facility] Location: [facility] Disch: ----- ------- SPEC : [id number] RECD: 05/14/22 STATUS: IONA LEAVITT NUM: [id number] TERESA: 05/14/22-[address] [facility] [address]: Papa Parra MD ENTERED: 05/14/22-1006 SP TYPE: Surgical OTHR DR: Sharonda Brooks MD ORDERED: HE Stain/3, Gross Micro L4/2, IHC, H. pylori COMMENTS: Part A: One of the tissue fragments is extremely tiny and may be difficult to identify during processing and may fail to survive processing. Copies To: Sharonda Brooks MD [address] [place] [phone] Papa Parra MD [address] [place] [address] [place] [address] ----- ------- Signed (signature on file) Yanira Welsh 05/17/22 1607 ----- ------- END OF REPORT us [facility] External Provider LAB BLO OD ORDERABLES Final Result [facility] [address] [place] [phone] documented in this encounter Visit Diagnoses Not on filedocumented in this encounter Care Teams Garage Attendant Relationship Specialty Start Date End Date Sharonda Brooks MD [address] [place] [phone] PCP - General Internal Medicine 02/07/18 documented as of this encounter
== END 2024-10-16 17:06 | disposition home or self-care (01) ==
LOC: HO.HGI 16:10
PROVIDERS: PCP Internal Medicine; Visit Provider Nurse Practitioner
DX: K22.70 Barrett's esophagus without dysplasia (principal); R11.2 Nausea with vomiting, unspecified; K21.9 Gastro-esophageal reflux disease without esophagitis; R73.09 Other abnormal glucose; R74.01 Elevation of levels of liver transaminase levels
CPT/HCPCS: 99214

== ENCOUNTER → 2024-10-16 16:10 | Outpatient (BNVA) | payer OTHER, SELFPAY | PROVIDERS: PCP Internal Medicine; Visit Provider Nurse Practitioner | DX: K22.70 Barrett's esophagus without dysplasia (principal); R11.2 Nausea with vomiting, unspecified; K21.9 Gastro-esophageal reflux disease without esophagitis; R73.09 Other abnormal glucose; R74.01 Elevation of levels of liver transaminase levels; R14.0 Abdominal distension (gaseous) | CPT/HCPCS: 99212 ==

== ENCOUNTER 2024-11-21 17:06 | Emergency (ER) | payer OTHER, SELFPAY ==
--- NOTE | ~2024-11-21 | XR_ITS ---
CLINICAL HISTORY: Chest pain 2 view chest x-ray Comparison: None provided Findings: The lungs are clear. Heart size is normal. No acute fracture. Mild thoracic dextroscoliosis. IMPRESSION: 1. No acute findings. This document has been electronically signed by: Nitin Adams MD on 11/21/2024 18:10:08
--- NOTE | 2024-11-21 17:09 | ECG_ITS ---
Test Reason : cp Blood Pressure : */* mmHG Vent. Rate : 64 BPM Atrial Rate : 64 BPM P-R Int : 148 ms QRS Dur : 84 ms QT Int : 398 ms P-R-T Axes : 63 77 52 degrees QTcB Int : 410 ms Normal sinus rhythm ST elevation, consider early repolarization Borderline ECG No previous ECGs available Referred By: Generic ED Physician Electronically Signed By: Markell Hudson
[2024-11-21 17:27] VITALS: BP 146/73; PULSE 70; RESP 18; TEMP 36.6; O2SAT 98; BMI 28.9
--- NOTE | 2024-11-21 17:29 | ED_ITS ---
[facility] - General Adult General Chief complaint: Chest Pain Stated complaint: chest pain Time Seen by Provider: 11/21/24 21:09 Source: patient Mode of arrival: ambulatory Limitations: no limitations History of Present Illness ED Provider: Dr. Gonzalez [facility] narrative: 49-year-old male history of hypertension hyperlipidemia presented hospital today for evaluation of intermittent chest pain. Patient was sent in by primary care doctor for evaluation of his chest pain. Patient stated that this has been going on for months. He describes it as a achiness on the left side of his chest. It does come and go. Recent stress test was 2 years ago. Patient presented to his primary care doctor office where they obtained an EKG. It did show signs of possible ST-elevation in the anterior leads therefore patient was sent to the ER for further evaluation. Patient at this time he is asymptomatic. He has no chest pain currently. I review patient's EKG did show some early repolarization. There was no reciprocal changes. I do not think this is a STEMI. Related Data Home Medications ?Medication ?Instructions ?Recorded ?Confirmed cholecalciferol (vitamin D3) 25 25 mcg PO DAILY 05/11/22 mcg (1,000 unit) tablet lisinopril 10 mg tablet 10 mg PO DAILY 02/03/2205/30 nifedipine 30 mg tablet,extended 30 mg PO DAILY 05/11/22 release rosuvastatin 20 mg tablet 20 mg PO DAILY 10/16/24 Previous Rx's ?Medication ?Instructions ?Recorded valacyclovir 1 gram tablet 500 mg (1/2 x 1 gram) PO BI D #14 07/17/24 tabs dicyclomine 20 mg tablet 20 mg PO TID #120 tabs 10/16 metoclopramide HCl 5 mg tablet 5 mg PO .T.I.D. A.C. na usea and 10/16/24 (Reglan) vomiting #60 tabs pantoprazole 40 mg tablet,delayed 40 mg PO BEDTIME #30 tabs 10/16/24 release Allergies Allergy/AdvReac Type Severity Reaction Status Date / Time No Known Allergies (No Known Allergy Verified 11/21/24 17:28 Allergies*) Review of Systems 2 Review of Systems: Pertinent review of systems as mentioned in HPI. All other system otherwise negative. [facility] Past Medical History [facility] Narrative: Medical history as mentioned in [facility] Medical History Oral mucosal lesion Back pain Colon cancer screening E coli enteritis Acute diarrhea Campylobacter enteritis IBS (irritable bowel syndrome) GERD (gastroesophageal reflux disease) Fatty liver HTN (hypertension) Surgical History History of cystoscopy History of facial surgery Hx of colonoscopy History of esophagogastroduodenoscopy (EGD) Family History Family History Father No problems noted. Mother No problems noted. Brother No problems noted. Sister No problems noted. 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 Physical Exam ED Exam Exam: General: Pleasant, no distress, interacting appropriately Head: Normacephalic, atraumatic ENT: oral mucosa moist, neck supple, no tracheal deviation Cardiovascular: regular rate, regular rhythm, no murmurs, rubbing, gallops Respiratory: CTAB, no wheeze, rales, rhonchi Neurological: Awake and alert, no facial droop noted Skin: Warm and dry Psychiatric: Appropriate mood and thoughts Vital Signs: Vital Signs - 24 hr 11/21/24 17:27 11/21/24 20:46 Temperature 97.9 F 97.9 F Pulse Rate 70 63 Respiratory Rate 18 17 Blood Pressure 146/73 H 128/79 Pulse Oximetry 98 100 Oxygen Delivery Method Room Air Room Air BMI result Body Mass Index 28.9 Course Course Course Narrative: This is a Rapid Medical Examination (RME) performed by Keyon Leiva PA-C in triage. Full HPI, ROS, assessment and treatment plan per primary provider in the Main ED. Hx: Patient is a 49 yo M who presents with CC of chest pain x months after being evaluated by PCP today. Currently denies chest pain. Described as burning and aching pain that radiates to left arm. Plan:Labs, ekg, cxr Medical Decision Making Medical Decision Making MDM Narrative: This is a 49-year-old male presented hospital today for evaluation of intermittent chest pain and achiness in his chest. EKG shows early repolarization. I do not think this is STEMI. Troponins negative. Patient has a heart score of 2. He is low risk chest pain at this time. He is not having any chest pain. I do not think he is having a heart attack. Chest x-ray is clear. We will plan to discharge patient at this time referral to Cardiology will be provided the patient. Patient is agreement with this plan. All questions were addressed. Differential Diagnosis Differential Diagnoses: The differential diagnosis associated with the presentation includes CAD, ACS, pneumonia, pneumothorax Lab Data [facility] Lab Attestation statement: I reviewed the patient's lab results. 11/21/24 17:41 11/21/24 17:41 Labs: Lab Results 11/21/24 Range/Units 17:41 WBC 8.2 (4.8-10.8) X10*3/uL RBC 4.85 (4.60-5.80) X10*6/uL Hgb 14.4 (14.0-18.0) g/dl Hct 43.1 (42.0-52.0) % MCV 88.9 (80.0-98.0) fL MCH 29.7 (27.0-33.0) pg MCHC 33.4 (31.0-36.0) g/dl RDW 12.5 (11.0-16.0) % Plt Count 226 (160-400) X10*3/uL MPV 11.0 (9.4-12.4) fL Immature Gran % (Auto) 0.4 (0.0-0.4) % Neut % (Auto) 63.0 (45-73) % Lymph % (Auto) 26.3 (20-40) % [place] % (Auto) 8.7 (2-11) % Eos % (Auto) 0.7 (0-4) % Baso % (Auto) 0.9 (0-2) % Lymph # (Auto) 2.2 (1.2-4.9) X10*3/uL [place] # (Auto) 0.7 (0.1-1.2) X10*3/uL Eos # (Auto) 0.1 (0.0-0.4) X10*3/uL Baso # (Auto) 0.1 (0.0-0.2) X10*3/uL Abs Immat Gran (auto) 0.03 (0.00-0.03) X10*3/uL Absolute Neuts (auto) 5.2 (2.0-8.3) x10*3/uL Absolute Nucleated RBC 0.000 (0.0-0.012) X10*3/uL Nucleated RBC % (auto) 0.0 (0.0-0.2) /100WBC Sodium 138 (135-145) mmol/L Potassium 3.5 (3.3-5.1) mmol/L Chloride 108 (96-108) mmol/L Carbon Dioxide 25 (22-29) mmol/L Anion Gap 9 L (12-20) BUN 12 (9-16) mg/dL Creatinine 1.10 (0.5-1.4) mg/dL Estim Creat Clear Calc 84.8 Estimated GFR > 60 Random Glucose 88 (60-115) mg/dL Calcium 9.0 (8.4-10.2) mg/dL Magnesium 2.2 (1.6-2.6) mg/dL Total Bilirubin 0.3 (0.0-1.0) mg/dL AST 33 (5-37) U/L ALT 39 (0-40) U/L Alkaline Phosphatase 98 (39-117) U/L Troponin I High Sens < 2.7 (<3.5-35.0) ng/L Total Protein 7.8 (6.5-8.0) g/dL Albumin 4.7 (3.5-5.0) g/dL Lipase 66 (8-78) U/L Independent Interpretation I performed an independent interpretation of an: EKG and Plain X-Ray Radiology Impression Discussion of test interpretation with radiology: I have reviewed the radiologist's reading. Scores Heart Score History: -0- slightly suspicious ECG: -0- normal Age: -1- >45 - <65 Risk factory: -1- 1 or 2 risk factors Troponin: -0- < or = normal limit Score: 2 Risk: 1.7% Discharge Plan Discharge Clinical Impression: Intermittent chest pain Patient Disposition: Home, Self-Care Instructions: Noncardiac Chest Pain (ED) Prescriptions: No Action valacyclovir 1 gram tablet 500 mg PO BID Qty: 14 0RF cholecalciferol (vitamin D3) 25 mcg (1,000 unit) tablet 25 mcg PO DAILY lisinopril 10 mg tablet 10 mg PO DAILY nifedipine 30 mg tablet extended release 30 mg PO DAILY rosuvastatin 20 mg tablet 20 mg PO DAILY pantoprazole 40 mg tablet,delayed release (DR/EC) 40 mg PO BEDTIME Qty: 30 6RF metoclopramide HCl [Reglan] 5 mg tablet 5 mg PO .T.I.D. A.C. Qty: 60 6RF dicyclomine 20 mg tablet 20 mg PO TID Qty: 120 6RF Referrals: [facility] [Provider Group] Referral Note: Chronic Intermittent chest pain Print Language: Norwegian
[2024-11-21 17:47] LABS: MANUAL DIFF FLAG NO
[2024-11-21 17:52] LABS: Hematocrit 43.1 % (42.0-52.0); Hemoglobin 14.4 g/dl (14.0-18.0); Imm Gran Abs Auto 0.03 X10*3/uL (0.00-0.03); Imm Gran Pct Auto 0.4 % (0.0-0.4); Lymphocytes Absolute Auto 2.2 X10*3/uL (1.2-4.9); Mean Corpuscular HGB Conc 33.4 g/dl (31.0-36.0); Mean Corpuscular Hemoglobin 29.7 pg (27.0-33.0); Mean Corpuscular Volume 88.9 fL (80.0-98.0); NRBC Abs Auto 0.000 X10*3/uL (0.0-0.012); NRBC Pct Auto 0.0 /100WBC (0.0-0.2); Platelet Count 226 X10*3/uL (160-400); Red Blood Count 4.85 X10*6/uL (4.60-5.80); White Blood Count 8.2 X10*3/uL (4.8-10.8)
[2024-11-21 18:03] LABS: Alanine Aminotransferase 39 U/L (0-40); Albumin Level 4.7 g/dL (3.5-5.0); Alkaline Phosphatase 98 U/L (39-117); Anion Gap 9 (12-20); Aspartate Amino Transferase 33 U/L (5-37); Blood Urea Nitrogen 12 mg/dL (9-16); Calcium 9.0 mg/dL (8.4-10.2); Carbon Dioxide 25 mmol/L (22-29); Chloride 108 mmol/L (96-108); Creatinine Clr Calc Pharmacy 84.8; Estimated Glomerular Filt Rate > 60; Lipase 66 U/L (8-78); Magnesium 2.2 mg/dL (1.6-2.6); Potassium 3.5 mmol/L (3.3-5.1); Sodium 138 mmol/L (135-145); Total Protein 7.8 g/dL (6.5-8.0)
[2024-11-21 18:16] LABS: Troponin-I High Sensitivity < 2.7 ng/L (<3.5-35.0)
--- OUTSIDE RECORDS SUMMARY | 2024-11-21 20:44 | XMS_ITS | Clinical Summary ---
Author Organization [facility] Address [address] [id number] Care Team Providers Care Farm Machine Tender Name Role Phone Unavailable Primary Care Provider [...] of 2) 08/18/2023 COVID-19 Vaccine ( - 2024-2 6 season) 2024 Influenza (#1) 2024 HPV Vaccine [...]
[2024-11-21 20:46] VITALS: BP 128/79; PULSE 63; RESP 17; TEMP 36.6; O2SAT 100
[2024-11-21 22:15] VITALS: BP 123/75; PULSE 61; TEMP 36.7; O2SAT 99
== END 2024-11-21 22:33 | disposition home or self-care (01) ==
PROVIDERS: Physician Assistant Medical; Emergency Provider Student in an Organized Health Care Education/Training Program; PCP Internal Medicine
DX: R07.89 Other chest pain (principal); I10 Essential (primary) hypertension; E78.5 Hyperlipidemia, unspecified; Z79.899 Other long term (current) drug therapy
CPT/HCPCS: 36415; 71046; 80053; 83690; 83735; 84484; 85025; 93005; 99283

== ENCOUNTER → 2024-11-21 17:09 | Outpatient (BNV) | payer OTHER, SELFPAY | PROVIDERS: Emergency Provider Student in an Organized Health Care Education/Training Program; PCP Internal Medicine; Visit Provider Internal Medicine Cardiovascular Disease | DX: R07.9 Chest pain, unspecified (principal) | CPT/HCPCS: 93010 ==

== ENCOUNTER → 2024-11-21 17:33 | Outpatient (BNV) | payer OTHER, SELFPAY | PROVIDERS: PCP Internal Medicine; Visit Provider Radiology Diagnostic Radiology | DX: R07.89 Other chest pain (principal) | CPT/HCPCS: 71046 ==

== ENCOUNTER 2025-01-02 14:43 | Outpatient (AMB) | payer OTHER, SELFPAY ==
--- NOTE | 2025-01-02 14:50 | MHC.OFFVIS ---
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 A.C. nifedipine ER 30 mg PO DAILY pantoprazole 40 mg PO BEDTIME rosuvastatin 20 mg PO DAILY HPI Comments Details: This is a 49-year-old male patient referred to our office for further evaluation of chest pain. Moving forward, patient will be under the care of Dr. 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 Patient with a history of hypertension, hyperlipidemia, and family history of coronary artery disease. Patient states that he has been having left-sided chest discomfort for over a year. Patient states that recently at his PCP office he had mentioned about the ongoing chest discomfort sometimes with pain radiating into his left arm. Patient had an EKG there that was concerning for STEMI and therefore was sent to emergency room for further evaluation. Patient had negative biomarkers and was discharged home. Today, patient is reporting ongoing intermittent chest discomfort that can happen with rest as well as with exertion. Patient does note that he does have a significant family history of his dad who has undergone CABG. Patient is otherwise denying any exertional shortness of breath, dizziness, palpitations, orthopnea, PND, presyncope or syncope associated with this. Patient is reporting compliance with all his medications. [facility] Medical History (Updated 01/02/25 @ 15:48 by Ford Hartley NP) Oral mucosal lesion Back pain Colon cancer screening E coli enteritis Acute diarrhea Campylobacter enteritis IBS (irritable bowel syndrome) GERD (gastroesophageal reflux disease) Fatty liver HTN (hypertension) Surgical History History of cystoscopy History of facial surgery Hx of colonoscopy History of esophagogastroduodenoscopy (EGD) Family History Father H/O heart surgery Mother Heart problem Brother No problems noted. Sister No problems noted. 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 Review of Systems Const Denies daytime sleepiness, Denies difficulty sleeping, Denies snoring, Denies stops breathing during sleep and Denies weakness Card Reports chest pain, Denies rapid heart rate, Denies irregular heart rhythm, Denies claudication, Denies leg edema, Denies lightheadedness, Denies palpitations, Denies dyspnea, Denies dyspnea on exertion, Denies orthopnea, Denies paroxysmal nocturnal dyspnea and Denies slow heart rate Resp Denies cough, Denies dyspnea, Denies dyspnea on exertion and Denies snoring GI Reports no additional complaints, Denies hematochezia, Denies change in stool character and Denies dyspepsia Musc Denies abnormal gait, Denies muscle weakness and Denies numbness Neuro Denies abnormal gait, Denies numbness and Denies weakness Endo Denies palpitations Physical Exam Vital Signs: Last Vital Signs Pulse 70 01/02/25 14:51 BP 110/62 01/02/25 14:51 BMI result Body Mass Index 28.8 Const General: cooperative, healthy appearing, comfortable and no acute distress Orientation/consciousness: patient oriented x3 HEENT Head: Yes normal to inspection Neck Neck: Yes normal visual inspection, Yes trachea midline and Yes supple Chest Chest palpation & inspection: normal inspection of the chest Resp Effort & Inspection: normal respiratory effort Auscultation: clear to auscultation bilaterally, no crackles, no rales, no rhonchi and no wheezes Cardio Jugular venous distension: no JVD Palpation: normal PMI Rate: regular rate Rhythm: regular rhythm Heart sounds: S1 normal heart sound present, S2 normal heart sound present, no click, no gallops, no murmurs and no rubs Peripheral pulses: Peripheral pulses 2+ throughout GI Inspection: Yes normal to inspection Palpation (GI): Soft to palpation Auscultation: normal bowel sounds Skin General skin exam: no rashes or lesions noted Neuro General: patient oriented x3 Extrem General: Yes normal to inspection, No no pedal edema and No calf tenderness Psych Appearance: grossly normal Mental Status: mental status grossly normal Speech and movement: Normal speech and movement present Office Procedures EKG Details: EKG today showed normal sinus rhythm, rate 70 beats per minute, nonspecific STT wave, J-point elevation suggestive of early repolarization, normal ID, [place]. [id number], Complete Assessment & Plan Assessment & Plan (1) Chest pain: Code(s): R07.9 - Chest pain, unspecified Category: Medical (2) HTN (hypertension): Code(s): I10 - Essential (primary) hypertension Category: Medical (3) Hypertriglyceridemia: Code(s): E78.1 - Pure hyperglyceridemia Category: Medical (4) Family history of coronary artery disease: Code(s): Z82.49 - Family history of ischemic heart disease and other diseases of the circulatory system Category: Medical Plan Patient has been having chest discomfort for over a year and when patient brought this up to the PCP with sometimes pain radiating to into his left arm, patient underwent an EKG that was concerning for STEMI and therefore was sent to the emergency room. Patient's biomarkers were negative. EKG today shows early repolarization otherwise nonspecific STT wave. Patient's report of symptoms are sounding typical as well as atypical in nature however patient does have significant risk factors of hypertension, hyperlipidemia, and family history of coronary artery disease. Given multiple risk factors, we will obtain an echo to assess for LV systolic and diastolic dysfunction as well as wall motion abnormalities. We will also get a myocardial perfusion study to assess for ischemic changes. Continue statin therapy. Most recent lipid profile is elevated however patient is unaware if this was fasting or not. If all his testings are negative, we can pursue a coronary CTA. Blood pressure otherwise is within normal limits. Continue lisinopril therapy with a blood pressure goal less than 130/80. Advised on low-salt diet. Advised on heart healthy diet, regular exercise, med compliance, and aggressive management of vascular risk factors. Follow up after testings. In the interim, patient will call the office with any concerns or change in symptoms. Advised to seek ER care in case of exertional chest pain not resolved with rest. This note was generated using voice recognition software. While every effort has been made to ensure accuracy and proper telephone information supervisor, there may be occasional errors that could affect the content or meaning of the described symptoms. Orders: Orders CA stress test Today R07.9 - Chest pain, unspecified CA echo transthoracic complete Today R07.9 - Chest pain, unspecified NM cardiolite stress test Today R07.9 - Chest pain, unspecified AMB EKG-In Office Today R07.9 - Chest pain, unspecified Coding Level of Care Code New Pt Level 4 (06716) Complex visit Add On G2211 Diagnoses Chest pain R07.9 HTN (hypertension) I10 Hypertriglyceridemia E78.1 Family history of coronary artery disease Z82.49 CPT Codes EKG - CPT: [id number], Complete ([id number]) Time Spent (min) 34 Comment Time spent in reviewing the chart, test results, assessment, counseling and documentation.
[2025-01-02 14:51] VITALS: BP 110/62; PULSE 70; BMI 28.8
--- OUTSIDE RECORDS SUMMARY | 2025-01-02 17:25 | XMS_ITS | Clinical Summary ---
Author Organization [employer] Address [address] [facility] [address] [place] [address] Care Team Providers Care Lens Molding Equipment Operator Name Role Phone Sharonda Brooks MD Primary Care Provider [phone] Allergies No known active allergies Medications metoclopramide (Reglan) 5 MG tablet TAKE ONE TABLET THREE TIMES DAILY BEFORE MEALS FOR NAUSEA AND VOMITING 05/11/19 24 Active dicyclomine (Bentyl) 20 MG tablet TAKE ONE TABLET FOUR TIMES DAILY Active ciclopirox (Penlac) 8 % solution Apply topically at bedtime. Weekly nail trimming. Remove with alcohol every 7 days. Active lidocaine-prilo samir (Emla) 2.5-2.5 % creamIndication s:Other chest pain Apply topically 1 (one) time for 1 dose. 30 g 1 5 9:22 AM EST 12/18/19 25 025 Active NIFEdipine CC (Adalat CC) 30 MG 24 hr tabletIndicatio ns:Essential (primary) hypertension Take 1 tablet (30 mg) by mouth in the morning. 90 tablet 1 5 9:22 AM EST 12/18/19 25 Active lisinopril 10 MG tabletIndicatio ns:Essential (primary) hypertension Take 1 tablet (10 mg) by mouth in the morning. 90 tablet 1 12/18/19 25 Active rosuvastatin (Crestor) 20 MG tabletIndicatio ns:Hypercholest erolemia Take 1 tablet (20 mg) by mouth Once per day. 30 tablet 11 12/18/19 25 026 Active pantoprazole (ProtoNix) 40 MG EC tabletIndicatio ns:Gastroesopha geal reflux disease without esophagitis Take 1 tablet (40 mg) by mouth before breakfast. Do not crush, chew, or split. 90 tablet 1 12/18/19 25 Active cholecalciferol (Vitamin D-3) 25 MCG tablet TAKE ONE TABLET EVERY MORNING 90 tablet 1 9:22 AM EST 12/20/19 25 Active pantoprazole (ProtoNix) 40 MG EC tablet 06/20/19 24 025 Discontinued(Re order (will not trigger notification to Pharmacy)) NIFEdipine CC (Adalat CC) 30 MG 24 hr tabletIndicatio ns:Essential (primary) hypertension TAKE ONE TABLET EVERY MORNING 90 tablet 1 06/22/19 25 025 Discontinued(Re order (will not trigger notification to Pharmacy)) cholecalciferol (Vitamin D-3) 25 MCG tablet TAKE ONE TABLET EVERY MORNING 90 tablet 1 06/22/19 25 025 Discontinued rosuvastatin (Crestor) 20 MG tabletIndicatio ns:Hypercholest erolemia Take 1 tablet (20 mg) by mouth Once per day. 30 tablet 08/01/19 25 025 Discontinued(Re order (will not trigger notification to Pharmacy)) lisinopril 10 MG tabletIndicatio ns:Essential (primary) hypertension TAKE ONE TABLET EVERY MORNING 90 tablet 1 10/13/19 25 025 Discontinued(Re order (will not trigger notification to Pharmacy)) Active Problems Problem Noted Date Diagnosed Date Fatty liver 11/21/2024 Hypercholesterolemia 07/31/2024 Hypertensive disorder 09/04/2018 Gastroesophageal reflux disease without esophagi tis 06/14/2016 Depressive disorder 11/19/2011 Erectile dysfunction 11/19/2011 Gastritis 11/19/2011 Hiatal hernia 11/19/2011 Encounters Date Type Department Care Team Description 12/18/[address] [facility] [address] [place] [address] Sharonda Brooks MD Essential (primary) hypertension 12/17/2024 4:00 PM EST Office Visit [facility] [address] [place] [address] Sharonda Brooks MD Other chest pain (Primary Dx); Essential (primary) hypertension; Hypercholesterolemia; Gastroesophageal reflux disease without esophagitis 12/17/2024 Travel 11/21/2024 3:15 PM EDT Office Visit [facility] [address] [place] [address] Sharonda Brooks MD Primary hypertension (Primary Dx); Encounter for immunization; Hypercholesterolemia; Fatty liver; Precordial pain 11/21/2024 Orders Only GENERIC EXTERNAL DATA DEPARTMENT Provider, Generic External Data 11/21/2024 Travel 11/20/[address] [facility] [address] [place] [address] Sharonda Brooks MD Chart Prep 11/06/2024 Telephone [facility] [address] [place] [address] Sharonda Brooks MD No Show 11/05/[address] [facility] [address] [place] [address] Sharonda Brooks MD Chart Prep 10/12/[address] [facility] [address] [place] [address] Sharonda Brooks MD Essential (primary) hypertension from Last 3 Months Immunizations Immunization Administration Dates Next Due Hep B, adult 04/26/2024 MMR 07/28/2017,06/28/2017 Pfizer Covid-19 Vaccine 12+ 11/21/2024 Pneumococcal Conjugate PCV 20 04/26/2024 Tdap 08/25/2016 [...] Answer Date Recorded Patient Health Questionnaire-9 Score 0 11/21/2024 Patient Health Questionnaire-9 Score 0 11/21/2024 Last PHQ-9: Questionnaire Data Not on file 1 Housing Stability Answer Date Recorded What is your housing situation today? I have ramiro blackwell 11/21/[address] you li ve. Do you have problems with any of the following? None of the above 11/21/2024 Food Insecurity Answer Date Recorded Within the past 12 months, y ou worried that your food would run out before you got money to buy more: Never True 11/21/2024 Within the past 12 months,th e food you bought just didn't last and you didn't have enough money to get more: Never True Transportation Answer Date Recorded In the past 12 months, has l ack of transportation kept you from medical appts, meetings, work or from getting things needed for daily living? No 11/21/2024 Utilities Answer Date Recorded In the past 12 months, has t he electric, gas, oil or water company threatened to shut off services in your home? No 11/21/2024 Depression Answer Date Recorded Patient Health Questionnaire-2 Score 0 11/21/2024 Internet Access Answer Date Recorded Internet Access Q1 Yes 11/21/2024 Internet Access Q2 Not on file 11/21/2024 Sex and Gender Information Value Date Recorded Sex Assigned at Male 12/07/2021 10:21 AM EDT Legal Sex Male 10:21 AM EDT Gender Identity Male 12/07/2021 10:21 AM EDT Sexual Orientation Straight 12/07/2021 10 :21 AM EDT Last Filed Vital Signs Vital Sign Reading Time Taken Comments Blood Pressure 125/79 12/17/2024 4:40 PM EST Pulse 64 12/17/2024 4:40 PM EST Temperature 36.8 C (98.3 F) 07/31/2024 4:16 PM EDT Respiratory Rate 20 12/17/2024 4:40 PM EST Oxygen Saturation 98% 12/17/2024 4:40 PM EST Inhaled Oxygen Concentration - - Weight 85.3 kg (188 lb) 12/17/2024 4:40 PM EST Height 172.7 cm (5' 8 ) 12/17/2024 4:40 PM EST Body Mass Index 28.59 12/17/2024 4:40 PM EST Plan of Treatment Health Maintenance Due Date Last Done Comments CT Colonography 1973 FIT DNA/Cologuard 1973 FIT 1973 FOBT 1975 Sigmoidoscopy 1973 Family Planning (PISQ) 1988 Hepatitis A Vaccines (1 of 2 - Risk 2-dose series) 1992 Colonoscopy 08/25/2022 08/25/2017, 08/25/2017 Colorectal Cancer Screening 08/25/2022 RSV Patients and Patients Aged 60 years or older (1 - Risk 50-74 years 1-dose series) 08/18/2023 Zoster Vaccines (1 of 2) 08/18/2023 Hepatitis B Vaccines (2 of 3 - 19+ 3-dose series) 05/24/2024 04/26/2024 Influenza Vaccine (#1) 2024 Alcohol/Substance Use Screening 11/21/2025 11/21/2024 Depression Screening 11/21/2025 11/21/2024, 11/22/19 25 Disability Screening 11/21/2025 11/21/2024 SDOH Screening 11/21/2025 11/21/2024 Tobacco Screening 12/17/2025 12/17/2024 DTaP/Tdap/Td Vaccines (2 - Td or Tdap) 08/25/2026 08/25/2016 Lipid Panel 07/13/2029 07/13/2024, 02/07, 12/16/2020, Additional history exists HIV Screening Completed 07/16/2023 Pneumococcal Vaccine: 50+ Years Completed 04/26/2024 Hepatitis C Screening Completed 09/14/2024, 024 COVID-19 Vaccine Completed 11/21/2024, , 06/05/2020, Additional history exists HIB Vaccines Aged Out No longer eligi [...] Procedure Name Priority Date/Time Associated Diagnosis Comments XR CHEST 2 VIEWS Routine 11/21/2024 6:10 PM EDT HIGH SENSITIVITY TROPONIN I Routine 11/21/2024 5:41 PM EDT LIPASE Routine 11/21/2024 5:41 PM EDT MAGNESIUM Routine 11/21/2024 5:41 PM EDT COMPREHENSIVE METABOLIC PANEL Routine 11/21/2024 5:41 PM EDT CBC WITH AUTO DIFFERENTIAL Routine 11/21/2024 5:41 PM EDT ECG 12-LEAD Routine 11/21/2024 5:08 PM EDT Precordial pain HEPATITIS PANEL, GENERAL Routine 09/14/2024 11:32 AM EDT Alkaline phosphatase elevation Transaminitis LIPID PANEL, STANDARD Routine 07/13/2024 4:48 PM EDT Primary hypertension HIV 1/2 ANTIGEN/ANTIBODY, FOURTH GENERATION W/RFL Routine 07/16/2023 8:00 AM EDT Other fatigue HM COLONOSCOPY Routine 08/25/2017 from Last 3 Months or Most Recently Relevant to Health Maintenance Results * XR Chest 2 Views (11/21/2024 6:10 PM EDT) Anatomical Region Laterality Modality Chest Radiographic Shayy ging 11/21/2024 6:10 PM EDT Narrative 11/21/2024 6:11 PM EDT [address] [address] XRay Report Signed Patient: Mu Hennessy MR#: [id number] : 1975 Acct:[id number] Age/Sex: 49 / M ADM Date: 11/21/24 Loc: HO.ED Attending Dr: Ordering Physician: Meliza Leiva Date of Service: 11/21/24 Procedure(s): XR chest 2V Accession Number(s): [id number] cc: Sharonda Brooks MD; Meliza Leiva Reason for Exam: Chest pain CLINICAL HISTORY: Chest pain 2 view chest x-ray Comparison: None provided Findings: The lungs are clear. Heart size is normal. No acute fracture. Mild thoracic dextroscoliosis. IMPRESSION: 1. No acute findings. This document has been electronically signed by: Nitin Adams MD on 11/21/2024 18:10:08 Dictated By: Nitin Adams MD Signed By: <Electronically signed by Nitin Adams MD in OV> 11/21/241809 DD/ 09 TD/TT: 11/21/241809 Collections Assistant: Procedure Note Donotuseinterpreter, Image - 11/21/2024 [place] [address] XRay Report Signed Patient: Viraj Hennessy#: [id number] : 1975Acct:[id number] Age/Sex: 49 / MADM Date: 11/21/24 Loc: HO.ED Attending Dr: Ordering Physician: Meliza Leiva Date of Service: 11/21/24 Procedure(s): XR chest 2V Accession Number(s): [id number] cc: Sharonda Brooks MD; Meliza Leiva Reason for Exam: Chest pain CLINICAL HISTORY: Chest pain 2 view chest x-ray Comparison: None provided Findings: The lungs are clear. Heart size is normal. No acute fracture. Mild thoracic dextroscoliosis. IMPRESSION: 1. No acute findings. This document has been electronically signed by: Nitin Adams MD on 11/21/2024 18:10:08 Dictated By: Nitin Adams MD Signed By: <Electronically signed by Nitin Adams MD in OV> 11/21/241809 DD/ 09 TD/TT: 11/21/241809 Collections Assistant: [facility] External Provider IMG XR PROCEDURES Final Result * High Sensitivity Troponin I (11/21/2024 5:41 PM EDT) [facility] TROPONIN I HIGH SENSITIVITY <2.7 <3.5 - 35.0 ng/L [facility] Comment:The Gonzalez high sens itivity Troponin-I results should beused in conjunction with other diagnostic information suchas ECG, clinical observations and information, and patientsymptoms to aid in the diagnosis of AK. 11/21/2024 5:41 PM EDT 11/21/2024 5:46 PM EDT Generic External Data Provider LAB BLOOD ORDERAB LES Final Result [facility] [address] [place] [phone] * CBC auto differential (11/21/2024 5:41 PM EDT) [facility] White Blood Count 8.2 4.8 - 10.8 X10*3/uL [facility] Red Blood Count 4.85 4.60 - 5.80 X10*6/uL [facility] Hemoglobin 14.4 14.0 - 18.0 g/dl [facility] Hematocrit 43.1 42.0 - 52.0 % [facility] Mean Corpuscular Volume 88.9 80.0 - 98.0 fL [facility] Mean Corpuscular Hemoglobin 29.7 27.0 - 33.0 pg [facility] Mean Corpuscular HGB Conc 33.4 31.0 - 36.0 g/dl [facility] Red Cell Distribution Width 12.5 11.0 - 16.0 % [facility] Platelet Count 226 160 - 400 X10*3/uL [facility] Mean Platelet Volume 11.0 9.4 - 12.4 fL [facility] Neutrophils Percent Auto 63.0 45 - 73 % [facility] Imm Gran Pct Auto 0.4 0.0 - 0.4 % [facility] Lymphocytes Percent Auto 26.3 20 - 40 % [facility] Monocytes Percent Auto 8.7 2 - 11 % [facility] Eosinophils Percent Auto 0.7 0 - 4 % [facility] Basophils Percent Auto 0.9 0 - 2 % [facility] NRBC Pct Auto 0.0 0.0 - 0.2 /100WBC [facility] Neutrophils Absolute Auto 5.2 2.0 - 8.3 x10*3/uL [facility] Imm Gran Abs Auto 0.03 0.00 - 0.03 X10*3/uL [facility] Lymphocytes Absolute Auto 2.2 1.2 - 4.9 X10*3/uL [facility] Monocytes Absolute Auto 0.7 0.1 - 1.2 X10*3/uL [facility] Eosinophils Absolute Auto 0.1 0.0 - 0.4 X10*3/uL [facility] Basophils Absolute Auto 0.1 0.0 - 0.2 X10*3/uL [facility] NRBC Abs Auto 0.000 0.0 - 0.012 X10*3/uL [facility] 11/21/2024 5:41 PM EDT 11/21/2024 5:46 PM EDT us Generic External Data Provider LAB BLOOD ORDERAB LES Final Result [facility] [address] [place] [phone] * Magnesium (11/21/2024 5:41 PM EDT) Magnesium 2.2 1.6 - 2.6 mg/dL [facility] 11/21/2024 5:41 PM EDT 11/21/2024 5:46 PM EDT us Generic External Data Provider LAB BLOOD ORDERAB LES Final Result Performing Organization Address City/[facility]/ZIP Co de Phone Number [facility] [address] [place] [phone] * Lipase (11/21/2024 5:41 PM EDT) Lipase 66 8 - 78 U/L [facility] 11/21/2024 5:41 PM EDT 11/21/2024 5:46 PM EDT Generic External Data Provider LAB BLOOD ORDERAB LES Final Result Performing Organization Address [facility] Co de Phone Number [facility] [address] [place] [phone] * (ABNORMAL) Comprehensive Metabolic Panel (11/21/2024 5:41 PM EDT) Pathologist [facility] Sodium 138 135 - 145 mmol/L [facility] Potassium 3.5 3.3 - 5.1 mmol/L [facility] Chloride 108 96 - 108 mmol/L [facility] Carbon Dioxide 25 22 - 29 mmol/L [facility] Anion Gap 9(L) 12 - 20 [facility] Urea Nitrogen (BUN) 12 9 - 16 mg/dL [facility] Creatinine, Serum 1.10 0.5 - 1.4 mg/dL [facility] Creatinine Clr Calc Pharmacy 84.8 [facility] Comment:eGFR (calculated fro m the MDRD study equation) and eCrCl(calculated from the Cockcroft-Gault equation) are based ondifferent parameters and may not yield comparable results.If eCrCl result is absurd, please check patient'sheight/weight. Estimated Glomerular Filt Rate >60 [facility] Comment:Chronic Kidney Disea se: Estimated GFR < 60 mL/min/1.68k5Fodakm Kidney Disease: Estimated GFR < 15 mL/min/1.73m2 Glucose 88 60 - 115 mg/dL [facility] Calcium 9.0 8.4 - 10.2 mg/dL [facility] Bilirubin, Total 0.3 0.0 - 1.0 mg/dL [facility] Aspartate Amino Transferase 33 5 - 37 U/L [facility] Alanine Aminotransferase 39 0 - 40 U/L [facility] Total Protein 7.8 6.5 - 8.0 g/dL [facility] Albumin Level 4.7 3.5 - 5.0 g/dL [facility] Alkaline Phosphatase 98 39 - 117 U/L [facility] 11/21/2024 5:41 PM EDT 11/21/2024 5:46 PM EDT us Generic External Data Provider LAB BLOOD ORDERAB LES Final Result [facility] [address] [place] [phone] * ECG 12 lead (11/21/2024 5:08 PM EDT) Narrative Sharonda Brooks MD - 11/21/2024 5:08 PM EDT Heart rate 69 bpm. [place] 51 degrees. No sign of left atrial enlargement or right atrial enlargement. No sign of hypertrophy. ST elevation in V2 V3 and V4. Abnormal EKG. us Sharonda Brooks MD ECG ORDERABLES Final Resul t * Hepatitis A,B,C Profile (09/14/2024 11:32 AM EDT) Hepatitis A IgM Nonreactive Nonreactive [facility] Comment:IgM antibodies to WOODS V not detected; does not exclude earlyacute or recovered HAV infection. ~Hepatitis B Surface Antibody REACTIVE Nonreactive [facility] Comment:REACTIVE: > 11.99 mI U/mL Hepatitis B Core Antibody Nonreactive Nonreactive [facility] Hepatitis C Antibody Nonreactive Nonreactive [facility] Comment:Antibodies to HCV no t detected; does not exclude early acuteHCV infection. Hepatitis B Surface Ag Negative Negative [facility] Blood Venous blood specimen / Unknown 09/14/2024 11:32 AM EDT 09/14/2024 11:32 AM EDT us Sharonda Brooks MD LAB BLOOD ORDERABLES Final Result Performing Organization Address [facility]/ZIP Co de Phone Number [facility] [address] [place] [phone] * (ABNORMAL) Lipid Panel, Standard (07/13/2024 4:48 PM EDT) Triglycerides 513(H) <150 mg/dL [facility] Comment:Mild Lipemia.Desirab le Triglyceride: less than 150 mg/dLBorderline High Triglyceride 150-199 mg/dLHigh Triglyceride: 200-499 mg/dLVery High Triglyceride: greater than or equal to 5OO mg/dL Cholesterol 210(H) <200 mg/dL [facility] Comment:Desirable Cholestero l: less than 200 mg/dLBorderline High Cholesterol: 200-239 mg/dLHigh Cholesterol: greater than 239 mg/dL LDL Cholesterol Calculated TNP <100 mg/dL [facility] Comment:Unable to calculate the LDL. The formula of Friedwald,Pickens, and Nevin is only valid if the triglycerides areless than 400 mg/dl. HDL Cholesterol 30(L) >40 mg/dL [facility] Comment:Desirable HDL: great er than 40 mg/dL Note: This HDL assay may give artificially low results in patients with liver disease. Blood Venous blood specimen / Unknown 07/13/2024 4:48 PM EDT 07/13/2024 4:48 PM EDT us Sharonda Brooks MD LAB BLOOD ORDERABLES Final Result Performing Organization Address City/[facility]/ZIP Co de Phone Number [facility] [address] [place] [phone] * HIV-1/2 Antigen and Antibodies, Fourth Generation, with Reflexes (07/16/2023 8:00 AM EDT) HIV AB/AG Nonreactive Nonreactive [facility] Comment:HIV-1 p24 Ag and/or HIV-1/HIV-2 Ab not detected.A test result that is nonreactive does not exclude thepossibility of exposure to or infection with HIV-1 and/orHIV-2. Nonreactive results in this assay for individualswith prior exposure to HIV-1 and/or HIV-2 may be due toantigen and antibody levels that are below the limit ofdetection of this assay.The [employer] HIV Ag/Ab Combo assay result andsupplemental assay results should be interpreted inconjunction with the patient's clinical presentation,history and other laboratory results. If the results areinconsistent with clinical evidence, additional testing issuggested to confirm the result. Blood Venous blood specimen / Unknown 07/16/2023 8:00 AM EDT 07/16/2023 8:00 AM EDT Sharonda Brooks MD LAB BLOOD ORDERABLES Final Result [facility] [address] [place] [phone] * Colonoscopy (08/25/2017) Pathologist [facility] Colonoscopy Normal Normal Narrative Gladis Gamino - 08/25/2017 Recommended 5 year follow up due to tubular adenoma Historical Provider HEALTH MAINTENANCE Final Result from Last 3 Months or Most Recently Relevant to Health Maintenance Insurance [facility] [employer] [facility] Care Teams Lens Molding Equipment Operator Relationship Specialty Start Date End Date Sharonda Brooks MD [address] [place] [phone] PCP - General Internal Medicine 02/07/18
--- OUTSIDE RECORDS SUMMARY | 2025-01-02 17:25 | XMS_ITS | Encounter Summary ---
Author Organization [employer] Address [address] [facility] [address] [place] [address] Care Team Providers Care Quarryman Name Role Phone Sharonda Brooks MD Primary Care Provider [phone] Encounter Details Date Type Department Care Team (Late st Contact Info) Description 12/07/2022 Abstract [facility] [address] [place] [address] Sharonda Brooks MD [address] [place], [place] [phone] Social History Tobacco Use Types Packs/Day Years Used Date Smoking Tobacco: Never Assessed Sex and Gender Information Value Date Recorded Sex Assigned at Male 12/07/2021 10:21 AM EDT Legal Sex Male 10:21 AM EDT Gender Identity Male 12/07/2021 10:21 AM EDT Sexual Orientation Straight 12/07/2021 10 :21 AM EDT documented as of this encounter Plan of Treatment Not on file documented as of this encounter Procedures Procedure Name Priority Date/Time Associated Diagnosis Comments COLONOSCOPY Routine 08/25/2017 documented in this encounter Results * Colonoscopy (08/25/2017) Colonoscopy Normal Normal Narrative Gladis Gamino - 08/25/2017 Recommended 5 year follow up due to tubular adenoma us Historical Provider HEALTH MAINTENANCE Final Result documented in this encounter Visit Diagnoses Not on filedocumented in this encounter Care Teams Quarryman Relationship Specialty Start Date End Date Sharonda Brooks MD [address] [place] [address] PCP - General Internal Medicine 02/07/18 documented as of this encounter
--- OUTSIDE RECORDS SUMMARY | 2025-01-02 17:25 | XMS_ITS | Encounter Summary ---
Author Organization [employer] Address [address] [place] [address] [address] [place] [address] Care Team Providers Care Edm Operator Name Role Phone Sharonda Brooks MD Primary Care Provider [phone] Reason for Visit * Reason Comments Med Refill Encounter Details Date Type Department Care Team (Late st Contact Info) Description 04/12/2023 Refill [facility] [address] [place], [place] [phone] Sharonda Brooks MD [address] [place] [address] Essential (primary) hypertension Social History Tobacco Use [...] on file documented as of this encounter Visit Diagnoses Diagnosis Essential (primary) hypertension Unspecified essential hypertension documented in this encounter Care Teams Edm Operator Relationship Specialty Start Date End Date Sharonda Brooks MD [address] [place] [address] PCP - General Internal Medicine 02/07/18 documented as of this encounter
--- OUTSIDE RECORDS SUMMARY | 2025-01-02 17:25 | XMS_ITS | Encounter Summary ---
Author Organization [employer] Address [address] [facility] 7t [place] [address] Care Team Providers Care Manager Support Services Name Role Phone Sharonda Brooks MD Primary Care Provider [phone] Encounter Details Date Type Department Care Team (Late st Contact Info) Description 03/23/2022 Orders Only [facility] MEDICINE [address] [place] [address] Fiordaliza Chavarria LPN Social History Tobacco Use [...] Results * Amylase (11/04/2022 4:47 PM EDT) Pathologist [facility] Amylase 97 28 - 100 U/L [facility] 11/04/2022 4:47 PM EDT 11/04/2022 4:47 PM EDT Generic External Data Provider LAB BLOOD ORDERAB LES Final Result Performing Organization Address [facility] Co de Phone Number [facility] [address] [place] [phone] * Lipase (11/04/2022 4:47 PM EDT) [facility] Lipase 47 8 - 78 U/L [facility] 11/04/2022 4:47 PM EDT 11/04/2022 4:47 PM EDT Generic External Data Provider LAB BLOOD ORDERAB LES Final Result Performing Organization Address [facility] Co de Phone Number [facility] [address] [place] [phone] * C-reactive Protein (11/04/2022 4:47 PM EDT) [facility] C Reactive Protein 0.35 < or = 0.50 mg/dL [facility] 11/04/2022 4:47 PM EDT 11/04/2022 4:47 PM EDT Generic External Data Provider LAB BLOOD ORDERAB LES Final Result Performing Organization Address [facility] Co de Phone Number [facility] [address] [place] [address] [phone] * (ABNORMAL) Comprehensive Metabolic Panel (11/04/2022 4:47 PM EDT) Pathologist [facility] Sodium 139 135 - 145 mmol/L [facility] Potassium 4.0 3.3 - 5.1 mmol/L [facility] Chloride 104 96 - 108 mmol/L [facility] Carbon Dioxide 25 22 - 29 mmol/L [facility] Anion Gap 14 12 - 20 [facility] Urea Nitrogen (BUN) 13 9 - 16 mg/dL [facility] Creatinine, Serum 1.06 0.5 - 1.4 mg/dL [facility] Estimated Glomerular Filt Rate >60 [facility] Comment:NOTE: For -Am erican individuals, multiply the result by 1.210.Chronic Kidney Disease: Estimated GFR < 60 mL/min/1.51r2Mkqybv Kidney Disease: Estimated GFR < 15 mL/min/1.73m2 Glucose 80 60 - 115 mg/dL [facility] Calcium 9.8 8.4 - 10.2 mg/dL [facility] Bilirubin, Total 0.3 0.0 - 1.0 mg/dL [facility] Aspartate Amino Transferase 26 5 - 37 U/L [facility] Alanine Aminotransferase 27 0 - 40 U/L [facility] Total Protein 8.1(H) 6.5 - 8.0 g/dL [facility] Albumin Level 4.4 3.5 - 5.0 g/dL [facility] Alkaline Phosphatase 114 39 - 117 U/L [facility] 11/04/2022 4:47 PM EDT 11/04/2022 4:47 PM EDT [facility] External Provider LAB BLO OD ORDERABLES Final Result [facility] [address] [place] [address] [phone] * (ABNORMAL) CBC auto differential (11/04/2022 4:47 PM EDT) Pathologist [facility] White Blood Count 8.8 4.8 - 10.8 X10*3/uL [facility] Red Blood Count 5.01 4.60 - 5.80 X10*6/uL [facility] Hemoglobin 15.2 14.0 - 18.0 g/dl [facility] Hematocrit 44.5 42.0 - 52.0 % [facility] Mean Corpuscular Volume 88.8 80.0 - 98.0 fL [facility] Mean Corpuscular Hemoglobin 30.3 27.0 - 33.0 pg [facility] Mean Corpuscular HGB Conc 34.2 31.0 - 36.0 g/dl [facility] Red Cell Distribution Width 12.7 11.0 - 16.0 % [facility] Platelet Count 233 160 - 400 X10*3/uL [facility] Mean Platelet Volume 11.8 9.4 - 12.4 fL [facility] Neutrophils Percent Auto 62.5 45 - 73 % [facility] Imm Gran Pct Auto 0.5(H) 0.0 - 0.4 % [facility] Lymphocytes Percent Auto 25.9 20 - 40 % [facility] Monocytes Percent Auto 9.3 2 - 11 % [facility] Eosinophils Percent Auto 1.0 0 - 4 % [facility] Basophils Percent Auto 0.8 0 - 2 % [facility] NRBC Pct Auto 0.0 0.0 - 0.2 /100WBC [facility] Neutrophils Absolute Auto 5.5 2.0 - 8.3 x10*3/uL [facility] Imm Gran Abs Auto 0.04(H) 0.00 - 0.03 X10*3/uL [facility] Lymphocytes Absolute Auto 2.3 1.2 - 4.9 X10*3/uL [facility] Monocytes Absolute Auto 0.8 0.1 - 1.2 X10*3/uL [facility] Eosinophils Absolute Auto 0.1 0.0 - 0.4 X10*3/uL [facility] Basophils Absolute Auto 0.1 0.0 - 0.2 X10*3/uL [facility] NRBC Abs Auto 0.000 0.0 - 0.012 X10*3/uL [facility] 11/04/2022 4:47 PM EDT 11/04/2022 4:47 PM EDT [facility] External Provider LAB BLO OD ORDERABLES Final Result Performing Organization Address [facility] Co de Phone Number [facility] [address] [place] [address] [phone] * C-reactive Protein (09/17/2022 12:40 PM EDT) C Reactive Protein 0.18 < or = 0.50 mg/dL [facility] 09/17/2022 12:4 0 PM EDT 09/17/2022 12:40 PM EDT [facility] External Provider LAB BLO OD ORDERABLES Final Result Performing Organization Address [facility] Co de Phone Number [facility] [address] [place] [address] [phone] * Hematoxylin and Eosin Stain (05/14/2022 9:08 AM EDT) 05/14/2022 9:08 AM EDT 05/14/2022 10:00 AM EDT Jayda [facility] - 05/17/2022 4:07 PM EDT ----- ------- Name: Mu Hennessy Age/Sex: 46/M : 1975 Unit#: [id number] Attend Dr: Papa Parra MD Re05/14/22 Status: [facility] Location: [facility] Disch: ----- ------- SPEC : [id number] RECD: 05/14/22 STATUS: IONA LEAVITT NUM: [id number] TERESA: 05/14/22 [facility] DR: Papa Parra MD ENTERED: 05/14/22 SP TYPE: Surgical OTHR DR: Sharonda Brooks [...] Mu Hennessy Age/Sex: 46/M : 1975 Unit#: [id number] Attend Dr: Papa Parra MD Re05/14/22 Status: [facility] Location: [facility] Disch: ----- ------- SPEC : [id number] RECD: 05/14/22 STATUS: IONA LEAVITT NUM: [id number] TERESA: 05/14/22 [facility] DR: Papa Parra MD ENTERED: 05/14/22-1006 SP TYPE: Surgical OTHR DR: Sharonda Brooks MD ORDERED: HE Stain/3, Gross Micro L4/2, IHC, H. pylori COMMENTS: Part A: One of the tissue fragments is extremely tiny and may be difficult to identify during processing and may fail to survive processing. Copies To: Sharonda Brooks MD [address] [place] [address] [id number] Papa Parra MD [address] [place] [address] [place] [phone] ----- ------- Signed (signature on file) Yanira Anitha 05/17/22 1607 ----- ------- END OF REPORT [facility] External Provider LAB BLO OD ORDERABLES Final Result [facility] [address] [place] [phone] documented in this encounter Visit Diagnoses Not on filedocumented in this encounter Care Teams Manager Support Services Relationship Specialty Start Date End Date Sharonda Brooks MD [address] [place] [phone] PCP - General Internal Medicine 02/07/18 documented as of this encounter
--- OUTSIDE RECORDS SUMMARY | 2025-01-02 17:25 | XMS_ITS | Encounter Summary ---
Author Organization [employer] Address [address] [place] [address] 7[address] [place] [address] Care Team Providers Care Wool Sampler Name Role Phone Sharonda Brooks MD Primary Care Provider [phone] Reason for Visit * Reason Comments Med Refill Encounter Details Date Type Department Care Team (Late st Contact Info) Description 03/31/2023 Refill [facility] MEDICINE [address] [place], [place] [phone] Sharonda Brooks MD [address] [place] [address] Essential (primary) hypertension Social History Tobacco Use [...] hypertension documented in this encounter Care Teams Wool Sampler Relationship Specialty Start Date End Date Sharonda Brooks MD [address] [place] [address] PCP - General Internal Medicine 02/07/18 documented as of this encounter
--- OUTSIDE RECORDS SUMMARY | 2025-01-02 17:25 | XMS_ITS | Clinical Summary ---
Author Organization [facility] Address [address] [place] [address] Care Team Providers Care Feed Mixer Name Role Phone Unavailable Primary Care Provider [...] 2024-2 6 season) 2024 Influenza (#1) 2024 RSV (1 - 1-dose 75+ series) 2048 HPV Vaccine (No Doses Required) Completed Hep A Aged Out No longer eligi ble based on patient's age to complete this topic Hib Aged Out No longer eligi ble based on patient's age to complete this topic Meningococcal ACWY Aged Out No longer eligible based on patient's age to complete this topic
--- OUTSIDE RECORDS SUMMARY | 2025-01-02 17:25 | XMS_ITS | Encounter Summary ---
Author Organization [employer] Address [address] [facility] 7 [place] [address] Care Team Providers Care Sample Card Maker Name Role Phone Sharonda Brooks MD Primary Care Provider [phone] Encounter Details Date Type Department Care Team ([facility] st Contact Info) Description 09/26/2024 Orders Only [facility] MED & PEDS [address] [place], [place] [phone] Sharonda Brooks MD [address] [place], [place] [phone] Social History Tobacco Use Types Packs/Day Years [...] documented as of this encounter Care Teams Sample Card Maker Relationship Specialty Start Date End Date Sharonda Brooks MD [address] [place] [phone] PCP - General Internal Medicine 02/07/18 documented as of this encounter
--- OUTSIDE RECORDS SUMMARY | 2025-01-02 17:25 | XMS_ITS | Encounter Summary ---
Author Organization [employer] Address [address] [place] [address] [address] [place] [address] Care Team Providers Care Fisher Diving Name Role Phone Sharonda Brooks MD Primary Care Provider [phone] Reason for Referral * Imaging (Routine) - Closed Specialty Diagnoses / Procedures Referred By Contleo t Referred To Contact Radiology Diagnoses Alkaline phosphatase elevation Transaminitis Procedures US Abdomen Complete Sharonda Brooks MD [address] [place] [address] Phone: tel: fax: [address] [phone] Phone: tel: fax: Referral ID Status Reason Start Date Expiration Date Visits Re quested Visits Authorized [id number] Closed 07/16/2024 07/16/2025 1 1 Encounter Details Date Type Department Care Team (Late st Contact Info) Description 07/16/2024 Orders Only [facility] MED & PEDS [address] [place], [place] [phone] Sharonda Brooks MD [address] [place], [place] [phone] Alkaline phosphatase elevation (Primary Dx); Transaminitis Social [...] as of this encounter Plan of Treatment Scheduled Orders Name Type Priority Associated Diagnoses [...] AM EDT) Hepatitis A IgM Nonreactive Nonreactive [facility] Comment:IgM antibodies to WOODS V not detected; does not exclude earlyacute or recovered HAV infection. ~Hepatitis B Surface Antibody REACTIVE Nonreactive [facility] Comment:REACTIVE: > 11.99 mI U/mL Hepatitis B Core Antibody Nonreactive Nonreactive [facility] Hepatitis C Antibody Nonreactive Nonreactive [facility] Comment:Antibodies to HCV no t detected; does not exclude early acuteHCV infection. Hepatitis B Surface Ag Negative Negative [facility] Blood Venous blood specimen / Unknown 09/14/2024 11:32 AM EDT 09/14/2024 11:32 AM EDT us Sharonda Brooks MD LAB BLOOD ORDERABLES Final Result [facility] [address] [place] [phone] * Iron And Total Iron Binding Capacity (09/14/2024 11:32 AM EDT) Iron 99 45 - 160 mcg/dL [facility] Total Iron Binding Capacity 250 228 - 428 mcg/dL [facility] Percent Iron Saturation 40 15 - 50 % [facility] Unsaturated Iron Binding 151 ug/dL [facility] Blood Venous blood specimen / Unknown 09/14/2024 11:32 AM EDT 09/14/2024 11:32 AM EDT us Sharonda Brooks MD LAB BLOOD ORDERABLES Final Result Performing Organization Address [facility]/ZIP Co de Phone Number [facility] [address] [place] [phone] * (ABNORMAL) Ferritin (09/14/2024 11:32 AM EDT) Ferritin 304(H) 20 - 250 ng/mL [facility] Blood Venous blood specimen / Unknown 09/14/2024 11:32 AM EDT 09/14/2024 11:32 AM EDT us Sharonda Brooks MD LAB BLOOD ORDERABLES Final Result Performing Organization Address [facility] Co de Phone Number [facility] [address] [place] [phone] * Prothrombin Time-INR (09/14/2024 11:32 AM EDT) Prothrombin Time 11.6 10.9 - 12.4 SEC [facility] INTERNATIONAL NORM RATIO 1.0 0.9 - 1.1 [facility] Comment:INTERNATIONAL NORMAL IZED RATIO (INR) [...] BLOOD ORDERABLES Final Result Performing Organization Address [facility] de Phone Number [facility] [address] [place] [phone] * (ABNORMAL) Immunoglobulins, Quantitative, IgA, IgG, IgM (09/14/2024 11:32 AM EDT) IMMUNOGLOBULIN G 1454 600 - 1640 mg/dL [facility] IMMUNOGLOBULIN A 350(A) 47 - 310 mg/dL [facility] Immunoglobulin M 94 50 - 300 mg/dL [facility] Comment:THIS TEST WAS PERFOR MED AT:[employer] [address] [phone] BARCENAS MD Blood Venous blood specimen / Unknown 09/14/2024 11:32 AM EDT 09/14/2024 11:32 AM EDT us Sharonda Brooks MD LAB BLOOD ORDERABLES Final Result Performing Organization Address [facility] Co de Phone Number [facility] [address] [place] [phone] * US Abdomen Complete (09/14/2024 11:00 AM EDT) Anatomical Region Laterality Modality Abdomen Ultrasound 09/14/2024 11:0 0 AM EDT Narrative 09/14/2024 11:43 AM EDT [address] [address] Ultrasound Report Signed Patient: Mu Hennessy MR#: [id number] : 1975 Acct:[id number] Age/Sex: 49 / M ADM Date: 09/14/24 Loc: HO.US Attending Dr: Sharonda Brooks MD Ordering Physician: Sharonda Brooks MD Date of Service: 09/14/24 Procedure(s): US abdomen complete Accession Number(s): [id number] cc: Sharonda Brooks MD EXAMINATION: US ABDOMEN [...] 09/14/24 1139 DD/ 1100 TD/TT: 09/14/24 1130 Linoleum Tile Floor Layer: Procedure Note Donotuseinterpreter, Image - 09/14/[address] [address] Ultrasound Report Signed Patient: Destiny HennessyR#: [id number] : 1975Acct:[id number] Age/Sex: 49 / MADM Date: 09/14/24 Loc: HO.US Attending Dr: Sharonda Brooks MD Ordering Physician: Sharonda Brooks MD Date of Service: 09/14/24 Procedure(s): US abdomen complete Accession Number(s): [id number] cc: Sharonda Brooks MD EXAMINATION: US ABDOMEN [...] 09/14/24 1139 DD/ 1100 TD/TT: 09/14/24 1130 [employer]oleum Tile Floor Layer: Sharonda Brooks MD IM US PROCEDURES Final Res ult documented in this encounter Visit Diagnoses Diagnosis Alkaline phosphatase elevation- Primary Other nonspecific abnormal serum enzyme levels Transaminitis Nonspecific elevation of levels of transaminase or lactic acid dehydrogenase (LDH) documented in this encounter Additional Health Concerns Assessment Noted Time PHQ-9 Depression Total Score: 6 06/23/19 24 1:44 PM EDT documented as of this encounter Care Teams Fisher Diving Relationship Specialty Start Date End Date Sharonda Brooks MD [address] [place] [phone] PCP - General Internal Medicine 02/07/18 documented as of this encounter
--- OUTSIDE RECORDS SUMMARY | 2025-01-02 17:25 | XMS_ITS | Encounter Summary ---
Author Organization [employer] Address [address] [place] [address] 7[address] [place] [address] Care Team Providers Care Sagger Soak Name Role Phone Sharonda Brooks MD Primary Care Provider [phone] Reason for Visit * Reason Comments Med Refill Encounter Details Date Type Department Care Team (Late st Contact Info) Description 03/08/[address] [facility] MEDICINE [address] [place], [place] [phone] Sharonda Brooks MD [address] [place] [address] Essential (primary) hypertension Social History Tobacco Use [...] hypertension documented in this encounter Care Teams Sagger Soak Relationship Specialty Start Date End Date Sharonda Brooks MD [address] [place] [address] PCP - General Internal Medicine 02/07/18 documented as of this encounter
== END 2025-01-02 15:25 | disposition home or self-care (01) ==
LOC: HO.HCS 14:43
PROVIDERS: PCP Internal Medicine
DX: R07.9 Chest pain, unspecified (principal); I10 Essential (primary) hypertension; E78.1 Pure hyperglyceridemia; Z82.49 Family history of ischemic heart disease and other diseases of the circulatory system
CPT/HCPCS: 93010; 99204

== ENCOUNTER → 2025-01-02 14:43 | Outpatient (BNVA) | payer OTHER, SELFPAY | PROVIDERS: PCP Internal Medicine | DX: R07.89 Other chest pain (principal); I10 Essential (primary) hypertension; E78.1 Pure hyperglyceridemia; Z82.49 Family history of ischemic heart disease and other diseases of the circulatory system; Z79.899 Other long term (current) drug therapy; Z71.3 Dietary counseling and surveillance | CPT/HCPCS: 93005; 99202 ==